=== PATIENT | male | born 1955 | race Caucasian/White ===

== ENCOUNTER 2017-07-16 15:57 | Inpatient (IN) | payer MEDICARE ==
[2017-07-16 16:21] LABS: #Basophils 0.1 thou/uL (0.0-0.2); #Eosinphils 0.2 thou/uL (0.0-0.7); #Lymphocytes 2.1 thou/uL (1.20-3.40); #Monocytes 0.7 thou/uL (0.11-0.59); #Neutrophils 7.5 thou/uL (1.40-6.50); %Basophils 0.9 % (0.0-1.0); %Eosinophils 2.1 % (0.0-10.0); %Monocytes 6.7 % (0.0-10.0); %Neutrophils 70.3 % (42.0-75.0); Mean Corpuscular HGB CONC 33.3 g/dL (32.0-36.0); Mean Corpuscular Hemoglobin 31.2 pg (27.0-31.0); Mean Corpuscular Volume 93.8 fl (80.0-94.0); Mean Platelet Volume 8.5 fL (7.4-10.4); Platelet Count 279 thou/uL (130-400); Red Blood Cell (RBC) Count 3.84 mill/uL (4.70-6.10); White Blood Cell (WBC) Count 10.6 thou/uL (4.8-10.8)
[2017-07-16 16:31] LABS: ALT (SGPT) 13 U/L (8-55); AST (SGOT) 12 U/L (5-34); Albumin 3.4 g/dL (3.5-5.0); Alkaline Phosphatase 148 U/L (40-150); Anion Gap 15 mmol/L (10-20); BUN (Urea Nitrogen) 37 mg/dL (8.4-25.7); Bilirubin, Total 0.5 mg/dL (0.2-1.2); CK (CPK) 269 U/L (30-200); Calc. Creatinine Clearance 0 mL/min (70-130); Carbon Dioxide 22 mmol/L (22-29); Chloride 102 mmol/L (98-107); Estimated GFR-MDRD 43; Globulin 3.2 g/dL (2.4-3.5); Glucose 344 mg/dL (70-105); Lipase 28 U/L (8-78); Potassium 4.3 mmol/L (3.5-5.1); Protein, Total 6.6 g/dL (6.0-8.3); Sodium 135 mmol/L (136-145)
[2017-07-16 16:34] LABS: CKMB 4.6 ng/mL (0-6.6); Troponin I 0.028 ng/mL (< 0.028)
[2017-07-16 16:47] LABS: INR-International Normal Ratio 1.1; PTT 35.2 SEC (22.9-36.1); Prothrombin Time 14.5 SEC (12.0-14.7)
--- NOTE | 2017-07-16 16:54 | RAD ---
PORTABLE CHEST ONE VIEW 07/16/17 at 4:25 p.m. HISTORY: Chest pain. FINDINGS: There are changes of median sternotomy. The heart size is borderline. Left sided pacemaker device is present. The lungs are expanded without confluent areas of consolidation, pneumothoraces, vanessa pulmo nary edema or pleural effusions. IMPRESSION: No acute process. POS: OFF
[2017-07-16] MEDS ORDERED: Amiodarone HCl 450 MG, Admixture Fee 1 EACH in Dextrose 5% in Water 250 ML IVPB SCH ×2 (17:00→21:00)
[2017-07-16] MEDS ORDERED: Enoxaparin Sodium 80 MG/0.8 ML SYRINGE ONE (17:25)
[2017-07-16] MEDS ORDERED: Enoxaparin Sodium 30 MG/0.3 ML SYRINGE ONE (17:25)
[2017-07-16] MEDS ORDERED: Metoprolol Tartrate 25 MG TAB ONE (20:00)
[2017-07-16] MEDS ORDERED: Acetaminophen 325 MG TAB PO PRN ×2 (20:23→20:37)
[2017-07-16] MEDS ORDERED: Ondansetron HCl/PF 4 MG/2 ML Vial IVP PRN (20:23)
[2017-07-16] MEDS ORDERED: Ondansetron ODT 4 MG TAB SL PRN (20:23)
[2017-07-16 20:26] LABS: Troponin I 0.038 ng/mL (< 0.028)
[2017-07-16] MEDS ORDERED: Aspirin 325 mg Enteric Coated Tablet PO SCH (20:30)
[2017-07-16] MEDS ORDERED: hydrALAZINE 20 MG/ML VIAL SLOW IVP PRN (20:37)
[2017-07-16] MEDS ORDERED: Amiodarone In Dextrose 200 ML IVPB SCH (20:37)
[2017-07-16] MEDS ORDERED: Dextrose 50% Abboject 50 ML SYRINGE SLOW IVP PRN (20:37)
[2017-07-16] MEDS ORDERED: Dextrose 5% in Water 1,000 ML IV PRN (20:37)
[2017-07-16] MEDS ORDERED: HYDROcodone/Acetaminophen 5/325 mg Tablet PO PRN (20:37)
[2017-07-16] MEDS ORDERED: Lorazepam 0.5 MG TAB PO PRN (20:37)
[2017-07-16] MEDS ORDERED: HYDROcodone/Acetaminophen 10/325 mg Tablet PO PRN (20:37)
[2017-07-16] MEDS: Metoprolol Tartrate 25 MG TAB PO SCH (21:17)
[2017-07-16] MEDS: Famotidine 20 MG TAB PO SCH (21:17)
[2017-07-16] MEDS: Nitroglycerin 2% Ointment 1 INCH/1 GM Packet TOP SCH (21:17)
[2017-07-16] MEDS: HumaLOG 300 UNITS/3 ML VIAL SC PRN (21:27)
[2017-07-16 21:54] LABS: Troponin I 0.039 ng/mL (< 0.028)
[2017-07-16 22:04] VITALS: BMI 33.7
--- NOTE | 2017-07-17 00:40 | HP ---
PRIMARY CARE PHYSICIAN: Dr. Valdez. CHIEF COMPLAINT: Chest pain and heart beating too fast. HISTORY OF PRESENT ILLNESS: Mr. Miramontes is a pleasant 61-year-old gentleman that has a history of cor onary artery disease. He also has a history of congestive heart failure and he is status post AICD p lacement. He says that he was doing fine today. He had just gone to see Dr. Trejo to get a checkup , when he recently had a right total knee replacement. He says that he had gotten clear on the knee and says that he was basically being discharged from that perspective. When he started noticing late r on this morning that he was starting to have hurting in his chest. He says that later on after thi s then he started noticing that he was short of breath. He had gone to the grocery store and says th at when he was walking around, he could barely push the cart without getting extremely short of breat h. As a result, he went ahead and went home. At that time, his blood pressure was around 109/92. H e says then he started noticing his chest hurting again, he thought he might be having a heart attack . He started noticing that his blood pressure kept getting higher and heart higher. He called EMS t o come get him. When he was in the ambulance, it was noted that he had a heart rate in the 130s, the y gave him adenosine without much relief and then they noticed that he had a wide complex tachycardia that looked like a slow ventricular tachycardia and apparently they cardioverted him and gave him 20 0 joules without any sedation. He then converted to sinus rhythm and was brought to the hospital whe re he has been started on an amiodarone drip. The patient says he had been doing fine from the cardi ac standpoint prior to this happening. REVIEW OF SYSTEMS: Constitutional: There have been no fevers, chills, no night sweats, no weight lo ss. HEENT: No headaches, no dizziness, no visual changes, no sore throat, rhinorrhea, neck pain, no adenopathy. Pulmonary: No hemoptysis, no cough, no wheezing. Cardiovascular: As stated in the hi story of present illness. He has noticed some increased lower extremity edema, but no mention of any PND or orthopnea. Gastrointestinal: No abdominal pain, no nausea, no vomiting, no change in bowels . Genitourinary: No urinary frequency, hematuria, no hesitancy. Neurologic: No focal weakness, nu mbness, no seizures. Psychiatric: No symptoms of anxiety or depression. PAST MEDICAL HISTORY: Significant for coronary artery disease, hypertension, congestive heart failur e, diabetes mellitus, peripheral vascular disease. PAST SURGICAL HISTORY: He has had coronary artery bypass grafting x4, this was in 2015, stents place d. He said he has had 11 back surgeries, 6 knee surgeries, amputation of the first toe on both feet, wrist fusions on both arms. ALLERGIES: CYMBALTA, which make him homicidal as well as suicidal. CHANTIX, which causes a bad reac tion and then fever blisters with ORANGE JUICE. FAMILY HISTORY: Significant for lung cancer, osteoarthritis, diabetes mellitus, but no history of an y heart disease. SOCIAL HISTORY: He is a former smoker. He smoked for 48 years for at least a pack a day. Denies an y alcohol use. He lives alone. CODE STATUS: FULL CODE. MEDICATIONS: Include furosemide 20 mg daily, metoprolol 25 mg twice a day, Lyrica 100 mg 3 times a d ay, atorvastatin 10 mg at bedtime, lisinopril 5 mg daily. PHYSICAL EXAMINATION: GENERAL: He is alert and oriented. He appears to be old, but anxious about the earlier events, but now in no distress. VITAL SIGNS: Blood pressure was 122/72, heart rate 78, respiratory rate of 17, temperature is 97.7. HEENT: Pupils are equal, round, and reactive. Extraocular muscles are intact. Sclerae anicteric. Throat no erythema, no exudates. NECK: No adenopathy, no bruits. LUNGS: Clear. No wheezing, no rales. CARDIOVASCULAR: He has a normal S1, S2. I do not appreciate any S3 or S4. No murmurs, clicks, or r ubs. ABDOMEN: Soft, obese, nontender, nondistended. Positive for bowel sounds. No rebound, no guarding. EXTREMITIES: There is no edema. NEUROLOGIC: The exam is grossly nonfocal. EXTREMITIES: He does have toe amputations on both feet on the first toe. His feet are warm and appe ars perfused; however, his dorsalis pedis pulses were diminished. He does have 1+ edema in the right lower extremity and some knee fusion, which is slightly more pronounced on the right leg than on the left. LABORATORY RESULTS: I do not have his EKG, but it is reported that he had a wide complex tachycardia . Currently, he appears to be in sinus rhythm, the rate is 75 and he had some Q-waves in II, III, an d AVF. His sodium was 135, potassium 4.3, chloride is 106, CO2 is 22, BUN of 37, creatinine 1.65, gl ucose was 344. White blood cell count 10.6, hemoglobin of 12.0, hematocrit 36, platelet count is 279 . INR is 1.1. ASSESSMENT AND PLAN: 1. This is a pleasant 61-year-old gentleman who presented to the emergency room after suffering ches t pain and was reported to being a wide complex tachycardia, which was suspected of being a slow vent ricular tachycardia. He has been started on an amiodarone drip, which we will continue. He will be admitted to the [facility] and Cardiology has been consulted. We will trend cardiac enzymes and consider p lacing him on aspirin and nitrates in the event that this is a primary acute coronary syndrome. 2. His blood pressure has been running high, we will go ahead and given his usual p.m. medications, these can be given early and then we can also place him on a medication as needed for blood pressure. 3. Diabetes mellitus. Again, we will start his usual medications including the Levemir as well as p lace him on sliding scale insulin. Further recommendations will be based on those from Cardiology.
[2017-07-17 05:48] LABS: #Basophils 0.1 thou/uL (0.0-0.2); #Eosinphils 0.5 thou/uL (0.0-0.7); #Lymphocytes 3.1 thou/uL (1.20-3.40); #Monocytes 0.7 thou/uL (0.11-0.59); #Neutrophils 7.4 thou/uL (1.40-6.50); %Basophils 0.8 % (0.0-1.0); %Eosinophils 4.4 % (0.0-10.0); %Lymphocytes 26.3 % (21.0-51.0); %Monocytes 6.2 % (0.0-10.0); %Neutrophils 62.3 % (42.0-75.0); Hemoglobin 11.9 g/dL (14.0-18.0); Mean Corpuscular HGB CONC 32.7 g/dL (32.0-36.0); Mean Corpuscular Hemoglobin 30.3 pg (27.0-31.0); Mean Corpuscular Volume 92.8 fl (80.0-94.0); Mean Platelet Volume 8.9 fL (7.4-10.4); Platelet Count 282 thou/uL (130-400); RBC Distribution Width 12.9 % (11.5-14.5); Red Blood Cell (RBC) Count 3.92 mill/uL (4.70-6.10); White Blood Cell (WBC) Count 11.8 thou/uL (4.8-10.8)
--- NOTE | 2017-07-17 05:52 | CON ---
DATE OF CONSULTATION: 07/16/2017 REASON FOR CONSULTATION: Sustained ventricular tachycardia. PRIMARY HAIR STYLIST: Dr. Dara Garcia. HISTORY OF PRESENT ILLNESS: Mr. Miramontes is a pleasant 61-year-old gentleman with history of myocardia l infarction and previous bypass surgery with recurrent ventricular tachycardia. Mr. Miramontes states he was at home, feeling relatively well. When he had the sudden onset of feeling, his heart racing and then subsequently had tightness in his chest. He called an ambulance because of the tightness in his chest. Because of the continued angina associated with the ventricular tachyca rdia, he was cardioverted, back to sinus rhythm. He began to feel better following that. He states he has been doing okay prior to this episode. He is feeling okay now, just somewhat upset about the events of this evening and it was very frighten ing to him to have the cardioversion. The patient is now awake and alert, feeling okay, however. PAST HISTORY: The patient has a history of myocardial infarction many years ago and initially underw ent emergency stent implantation, subsequently underwent coronary bypass grafting. The patient's most recent ejection fraction is 50% to 55%. He underwent bypass surgery on 05/2015, a 3-vessel coronary artery disease and also had a defibrillator implanted single chamber, most recent ejection fraction is 50% to 55%. He had a cardiac catheterization on 08/2016, allograft were patent. At that time, he was found to have a patent internal mammary to the LAD, patent graft to the diagonal , patent saphenous vein graft to the circumflex. From the drawing, it looks like it is a left domina nt system. There is another catheterization from 2014 prior to the bypass, which did not indicate it was left do minant. The patient did undergo a defibrillator implantation in 2013, single chamber. PAST MEDICAL HISTORY: 1. Diabetes. 2. Hypertension. 3. Previous amputation of the right great toe. 4. Peripheral vascular disease. MEDICATIONS: Levemir, aspirin, atorvastatin, metoprolol 25 mg daily, lisinopril, Lasix, amlodipine. PHYSICAL EXAMINATION: GENERAL: This is a somewhat apprehensive gentleman, who is resting comfortably now. VITAL SIGNS: Blood pressure was 160 systolic. Pulse was in the 80s, sinus rhythm. HEENT: Eyes: Sclerae nonicteric. Mouth: Mucous membranes moist. NECK: Supple, no lymphadenopathy. LUNGS: Clear, no wheezing, rales or rhonchi. CARDIAC: Normal S1, normal S2. There is no murmur, rub or gallop. ABDOMEN: Soft, nontender. EXTREMITIES: Warm, dry, no clubbing, no cyanosis, no edema. IMAGING: EKG, sinus rhythm at the present time, but he did have wide complex tachycardia, rate just over 140 from the ambulance recordings and is monomorphic. ASSESSMENT: 1. Previous bypass surgery. 2. Monomorphic ventricular tachycardia. 3. Patent graft on catheterization in 2014. PLAN: 1. He received one dose of Lovenox and he will get cardiac enzymes drawn. 2. He is on intravenous amiodarone for now. Consideration for EP evaluation ? candidate for ablatio n in view of the normal left ventricular function may be a good option for this gentleman in [facility] Dr. Garcia to resume care tomorrow.
[2017-07-17] MEDS: Nitroglycerin 2% Ointment 1 INCH/1 GM Packet TOP SCH ×3 (05:56→23:09)
[2017-07-17 06:04] LABS: Anion Gap 13 mmol/L (10-20); BUN (Urea Nitrogen) 32 mg/dL (8.4-25.7); Calc. Creatinine Clearance 92 mL/min (70-130); Calcium 9.2 mg/dL (7.8-10.44); Carbon Dioxide 24 mmol/L (22-29); Cardiac Risk 3.7 (Less than 4.5); Chloride 105 mmol/L (98-107); Cholesterol 136 mg/dl (< 200 Desired); Estimated GFR-MDRD 51; Glucose 209 mg/dL (70-105); HDL Cholesterol 37 mg/dL (>60 Neg Risk); LDL Cholesterol, Calculated 72 mg/dL; Potassium 4.4 mmol/L (3.5-5.1); Sodium 138 mmol/L (136-145); Triglycerides 135 mg/dL (Less than 150)
[2017-07-17] MEDS: HumaLOG 300 UNITS/3 ML VIAL SC PRN ×3 (06:34→18:06)
[2017-07-17] MEDS: Aspirin 325 MG TAB PO SCH (08:52)
[2017-07-17] MEDS: Enoxaparin Sodium 40 MG/0.4 ML SYRINGE SC SCH (08:52)
[2017-07-17] MEDS: Metoprolol Tartrate 25 MG TAB PO SCH (08:52)
[2017-07-17] MEDS: Famotidine 20 MG TAB PO SCH ×2 (08:52→20:56)
[2017-07-17] MEDS ORDERED: hydrALAZINE 20 MG/ML VIAL SLOW IVP PRN (09:02)
--- NOTE | 2017-07-17 09:05 | PDOC.PN ---
- Subjective Encounter Start Date: 07/17/17 Encounter Start Time: 09:03 Mr. Miramontes was seen today in follow-up. He denies any chest pain no shortness of breath. He still is quite frustrated about his current medical condition. - Objective Resuscitation Status: Resuscitation Status FULL:Full Resuscitation MAR Reviewed: Yes Vital Signs & Weight: Vital Signs (12 hours) Temp Pulse Resp BP Pulse Ox 07/17/17 07:55 97.9 F 56 L 18 160/82 H 94 L 07/17/17 04:30 97.6 F 54 L 18 158/70 H 91 L 07/17/17 00:00 98.6 F 60 16 163/68 H 98 07/16/17 21:30 98.6 F 66 16 183/94 H 96 07/16/17 21:20 98.6 F 66 16 96 Weight Weight 256 lb 1.6 oz I&O: 07/16/17 07/17/17 07/18/17 06:59 06:59 06:59 Intake Total 715 Output Total 2500 Balance -1785 Result Diagrams: 07/17/17 05:18 07/17/17 05:18 Additional Labs: Accuchecks 07/17/17 07/16/17 05:56 21:21 POC Glucose 206 H 307 H Phys Exam - Physical Examination HEENT: PERRLA Respiratory: no wheezing, no rales, no rhonchi, clear to auscultation bilateral Cardiovascular: RRR, no significant murmur Gastrointestinal: soft, non-tender, positive bowel sounds Musculoskeletal: no edema + 1st toe amputation on both feet decreased pulses, bilaterally Dx/Plan (1) Ventricular tachycardia Code(s): I47.2 - VENTRICULAR TACHYCARDIA Status: Acute (2) Coronary artery disease Code(s): I25.10 - ATHSCL HEART DISEASE OF [place] CORONARY ARTERY W/O ANG PCTRS Status: Acute (3) Diabetes mellitus type 2 in obese Code(s): E11.69 - TYPE 2 DIABETES MELLITUS WITH OTHER SPECIFIED COMPLICATION; E66.9 - OBESITY, UNSPECIFIED Status: Acute (4) Hypertension Code(s): I10 - ESSENTIAL (PRIMARY) HYPERTENSION Status: Acute (5) Chronic systolic heart failure Code(s): I50.22 - CHRONIC SYSTOLIC (CONGESTIVE) HEART FAILURE Status: Acute - Plan * Ventricular Tachycardia- He has been stable on an Amiodarone drip- * Will await further cardiology recommendations * DM- blood glucose is stable * HTN- blood pressure is elevated- will monitor the trend, and adjust medications as needed- will await Cardiology recommendations.
[2017-07-17] MEDS ORDERED: Furosemide 40 MG/4 ML VIAL SLOW IVP SCH (10:00)
[2017-07-17] MEDS: Pregabalin 50 MG CAP PO SCH ×2 (14:32→20:55)
[2017-07-17] MEDS ORDERED: Non-Formulary Item 1 EACH (Pregabalin [Lyrica] 100 MG) PO SCH (15:00)
--- NOTE | 2017-07-17 16:12 | CON ---
DATE OF CONSULTATION: 07/17/2017 SERVICE: Pulmonary Medicine. INTERVAL HISTORY: The patient was in his usual state of health until one day prior to admission. He got cleared from his knee surgery. He is feeling pretty good about that and went to the store. He started having somewhat shortness of breath that he could barely push the cart around. He also had chest pain. He went home and rested. He felt a little bit better, but ultimately, whenever he tried to exert himself, he gets shortness of breath and chest pain that came on again. He took his blood pressure, which was okay. Chest pain came back and at this time it was more severe. He called EMS services to come out and look at him. When they hooked him up on to a monitor, he had ventricular tachycardia at low rate. Without sedation, he got cardioverted. Since then, he has been in normal sinus rhythm. He denies any current fevers, chills, nausea, vomiting or chest discomfort. Cardiology is evaluating the patient and are going to consider getting EP involved to see whether or not an ablation would be in his best interest. He has no breathing problems. He has no underlying lung issues. PAST MEDICAL HISTORY: 1. Peripheral vascular disease. 2. Hypertension. 3. Dyslipidemia. 4. Coronary artery disease. 5. Chronic diastolic heart failure. PAST SURGICAL HISTORY: 1. Coronary artery bypass graft x4 vessels. 2. History of PCI. 3. Back surgery. 4. Knee surgery x6. 5. Amputation of the great toe on bilateral feet. 6. Wrist fusion, bilateral. ALLERGIES: 1. CYMBALTA causes suicidal and homicidal ideation. 2. CHANTIX causes fever blisters. ALLERGIES: No known drug allergies. MEDICATIONS: List of his inpatient medications was reviewed. No updates were made at this time. FAMILY HISTORY: Noncontributory. SOCIAL HISTORY: He is a former smoker. He has a [id number] history of smoking, but quit a couple of months ago. He denies any alcohol or illicit drug use. He has no exposure to chemicals, dust asbestos or tuberculosis. REVIEW OF SYSTEMS: General, head, ears, eyes, nose, throat, cardiovascular, respiratory, GI, , musculoskeletal, neurologic and skin is negative except as mentioned in the HPI. PHYSICAL EXAMINATION: VITAL SIGNS: Afebrile, pulse 63, blood pressure 178/70, respirations 21, saturation 98% on room air. GENERAL: Patient is awake, alert, in no apparent distress. LUNGS: Excellent air entry with no prolonged expiratory phase, wheezing, rhonchi or crackles. HEENT: Normocephalic, atraumatic. Sclerae are white, conjunctivae pink. Oral mucosa is moist without lesions. HEART: Normal rate, regular. ABDOMEN: Soft, nontender, nondistended. Bowel sounds are positive. MUSCULOSKELETAL: No cyanosis or clubbing. There is no pitting in the bilateral lower extremities. NEUROLOGIC: Grossly nonfocal. LABORATORY DATA: WBC 11.8, hemoglobin 11.9, and platelets 282,000. INR 1.1. Creatinine 1.42 and down trending. Basic metabolic profile and liver function studies are otherwise unremarkable. Troponin is stable at 0.039. TSH and lipase fall within the normal limits. IMAGING: Chest x-ray demonstrates no acute cardiopulmonary abnormality. Sternotomy wires are in place. There is an AICD generator in place with a single lead extending into what I believe is ventricle. ASSESSMENT: 1. Ventricular tachycardia, status post cardioversion and returned to normal sinus rhythm. 2. Chest pain, resolved. 3. Type 2 diabetes mellitus. 4. Peripheral vascular disease, severe. DISCUSSION AND PLAN: The patient will remain in the IMCU until cleared by Cardiology. Pulmonary or Critical Care will continue to follow if he remains in this location, but when he goes to the floor, we will sign off. Please call with additional questions or concerns moving forward. 70 minutes have been devoted to this patient in various activities. I personally reviewed all imaging studies and laboratory data noted within this document. For at least half of this time, I was interacting with the patient at the bedside or coordinating care with the care team. For the remainder of the time I was immediately available to the patient in the hospital unit. MATEO
--- NOTE | 2017-07-17 18:17 | PDOC.CTH ---
<Hamida Davis - Last Filed: 07/17/17 18:15> Cardiology Progress Note - Subjective The pt seen and examined. No overnight events. No overnight events. He is depressed due to s/p cardioversion without any sedation. - Objective Vital Signs Temp Pulse Resp BP BP Pulse Ox 07/17/17 15:00 98.1 F 59 L 17 155/74 H 94 L 07/17/17 11:00 98.7 F 63 21 H 178/80 H 98 07/17/17 09:36 56 L 193/84 H 07/17/17 08:00 98.4 F 56 L 18 98 07/17/17 07:55 97.9 F 56 L 18 160/82 H 94 L Weight 256 lb 1.6 oz 07/16/17 07/17/17 07/18/17 06:59 06:59 06:59 Intake Total 715 443 Output Total 2500 800 Balance -0434 -357 - Physical Examination General/Neuro: alert & oriented x3 Neck: no JVD present Lungs: CTA, other: (very diminished at bases) Heart: RRR Abdomen: soft Extremities: other: (2+ pitting edema to RLE) - Telemetry Telemetry Rhythm: SR 60 with V paced - Labs Result Diagrams: 07/17/17 05:18 07/17/17 05:18 Troponin/CKMB CK-MB (CK-2) 4.6 ng/mL (0-6.6) 07/16/17 16:14 Troponin I 0.039 ng/mL (< 0.028) H 07/16/17 21:20 - Assessment/Plan 1. SVT with s/p cardioverted on 07/16/17 - remains in SR 60 with Amiodarone IV 0.5mg/min. Cont. monitor 2. CAD with hx of CABG x3 in 2014 - stable; on Metoprolol, BO, ASA, and Statin ; cont. monitor on tele 3. Chronic systolic HF with Hx of AICD placement in 2013 - the rate was adjusted from 150 to 130 today; On Lasix 20mg PO daily; He received Lasix 40mg IV x1 today; 4. HTN - increase Metoprolol from 25mg to 50mg BID 5. CKD - stable; cont. monitor 6. PVD with hx of Rt 1st toe amputation - 7. DM type 2 - managed by PCP 8. Hyperlipidemia - on Statin 9. S/p Rt knee replacement - the site is [employer] and dry. 10. Ex smoker, quit in 04/2017 - smoking cessation education given to the pt MAR reviewed Review of Systems - Review of Systems Constitutional: reports: no symptoms reported EENTM: reports: no symptoms reported Respiratory: reports: no symptoms reported Cardiac (ROS): reports: no symptoms reported ABD/GI: reports: no symptoms reported : reports: no symptoms reported Musculoskeletal: reports: no symptoms reported <Ranulfo Garcia - Last Filed: 07/23/17 09:05> Cardiology Progress Note - Objective Weight 243 lb 14.4 oz - Labs Result Diagrams: 07/19/17 05:32 07/19/17 05:32 Troponin/CKMB CK-MB (CK-2) 4.6 ng/mL (0-6.6) 07/16/17 16:14 Troponin I 0.039 ng/mL (< 0.028) H 07/16/17 21:20 - Assessment/Plan i agree with the A/P by the AUTOMOBILE LOCATOR.
[2017-07-17] MEDS: Metoprolol Tartrate 50 MG TAB PO SCH (19:46)
--- NOTE | 2017-07-18 03:27 | CON ---
DATE OF CONSULTATION: 07/17/2017 ELECTROPHYSIOLOGY CONSULTATION REPORT REFERRING PHYSICIAN: Dara Garcia MD I am seeing Mr. Miramontes at our [facility] as an electrophysiology bridal sales consultant. His problems are: 1. Wide complex tachycardia, but no ICD therapy, requiring external cardioversion. 2. History of monomorphic VT inducible on EPS prompting an ICD implantation in 11/2013. A. History of ICD extraction due to MRSA infections and vegetation by ANIL on leads. B. Presentation with wide complex tachycardia, prompting an EP study demonstrating inducible ventricular tachycardia prompting an implantation of an ICD in 09/05/2016. 3. Coronary artery disease. A. Prior history of bypass surgery. B. Left heart catheterization on 09/06/2016, shows patent VALVERDE to LAD suggestive of diffuse [place] artery disease, LVEF 40%-45%. 4. History of peripheral vascular disease, status post toe amputations. 5. History of hypertension and diabetes. 6. Chronic back pain with 11 back surgeries. ALLERGIES: CYMBALTA, CHANTIX, and ORANGE JUICE. MEDICATIONS: Include furosemide, metoprolol, Lyrica, atorvastatin, lisinopril. SUBJECTIVE: Mr. Miramontes is here due to some development of dizziness and tachycardia. He had some chest discomfort associated with this, also dyspnea. He could barely push the cart around in a grocery store. Blood pressure is still reasonable at 109/92. He called EMS and he was found to be in wide complex tachycardia and was cardioverted to convert him back to sinus rhythm. Eventually, 200 joules was delivered without sedation and he is back to normal rhythm now. Currently, he is not having chest pains. No fever, chills, cough. Has some degree of fluid overload, lower extremity edema. Has mild orthopnea. No stroke -like symptoms. No bleeding issues. He recently underwent a right knee total replacement by Dr. Trejo. Rest of 12-point system otherwise unremarkable. PAST MEDICAL HISTORY: As above. PAST SURGICAL HISTORY: Significant for bypass graft surgery x4 and 15 stent placements in the past; 11 back surgeries; 6 knee surgeries; amputation of first toe on both feet; wrist fusions in both arms; and ICD implantation, extraction, and re-implantation again as above. SOCIAL HISTORY: The patient is a former smoker, smoked 48 years. Denies EtOH or drug use. FAMILY HISTORY: Significant for lung cancer, osteoarthritis, diabetes. No history of heart disease. OBJECTIVE DATA: VITAL SIGNS: Blood pressure is 170/80, heart rate 63, respiratory rate 21, temperature 98.7 degrees Fahrenheit. GENERAL: He is an alert and oriented man in no apparent distress. NECK: Supple. Jugular veins are slightly distended. CHEST: Coarse. Few crackles. CARDIAC: Heart sounds are regular to rate and rhythm. I do not hear murmur or gallop. Left precordial ICD insertion site is well healed. ABDOMEN: Benign. Bowel sounds positive. No hepatomegaly noted. No masses are felt. EXTREMITIES: Lower extremity has 2+ edema. Prior toe amputations are seen. Knee surgery site without reaction. NEUROLOGIC: The patient is nonfocal. MUSCULOSKELETAL: No joint swelling or deformities. SKIN: Without rash. DATABASE: EKG today reveals sinus rhythm with conduction. QRS duration is about 140 milliseconds, inferior Q-waves are noted. Nonspecific ST-T changes are seen. LABORATORY DATA: White count 11.8, hemoglobin 11.9, platelet count is 282. The INR is 1.1. Sodium 138, potassium 4.4, BUN 33, creatinine 1.42. Troponin I is 0.038 and 0.039. The chest x-ray report shows no acute process. ASSESSMENT AND PLAN: Mr. Miramontes is a pleasant 61-year-old man with prior history of ischemic cardiomyopathy with only mild to moderately reduced left ventricular ejection fraction, but with recurrent ventricular tachycardia. He was now admitted after an episode of ventricular tachycardia, which was relatively slower with rates just below 150 beats per minute were seen. I suspect the device has not delivered therapy due to the slower ventricular tachycardia rate that was below cut-off. For now, he is on IV amiodarone and seems to be reasonably suppressed. My plan is to interrogate his device and reprogram the VT detection zones accordingly. He may not necessarily need long- term IV amiodarone therapy. If recurrent arrhythmia episodes are seen, he could be considered for ventricular tachycardia ablation procedure as well. He also has symptoms of some fluid overload. Consideration for diuresis and CHF control will be welcomed. I am not suspecting acute ischemia. Further ischemic evaluation as per Dr. Garcia. We will follow up with you. Thank you for the consult. MATEO
[2017-07-18] MEDS: Nitroglycerin 2% Ointment 1 INCH/1 GM Packet TOP SCH ×3 (05:50→21:32)
[2017-07-18] MEDS: HumaLOG 300 UNITS/3 ML VIAL SC PRN ×4 (05:56→21:33)
--- NOTE | 2017-07-18 08:22 | PDOC.PN ---
- Subjective Encounter Start Date: 07/18/17 Encounter Start Time: 08:17 Mr. Miramontes was seen today in follow-up. He says he feels a little better today. He is still dealing with the fact that he was defibrillated without sedation on the ambulance. - Objective Resuscitation Status: Resuscitation Status FULL:Full Resuscitation MAR Reviewed: Yes Vital Signs & Weight: Vital Signs (12 hours) Temp Pulse Resp BP Pulse Ox 07/18/17 07:54 98.3 F 61 20 170/72 H 97 07/18/17 07:43 97.9 F 58 L 16 98 07/18/17 04:00 97.9 F 58 L 16 163/83 H 95 07/18/17 02:46 94 L 07/18/17 00:00 58 L 16 131/56 L 94 L Weight Weight 251 lb 8 oz I&O: 07/17/17 07/18/17 07/19/17 06:59 06:59 06:59 Intake Total 715 893 Output Total 2500 2150 Balance -1785 -1257 Result Diagrams: 07/17/17 05:18 07/17/17 05:18 Additional Labs: Accuchecks 07/18/17 07/17/17 07/17/17 05:50 20:56 16:21 POC Glucose 197 H 169 H 353 H 07/17/17 10:37 POC Glucose 341 H Phys Exam - Physical Examination HEENT: PERRLA Respiratory: no wheezing, no rales, no rhonchi, clear to auscultation bilateral Cardiovascular: RRR, no significant murmur, no rub Gastrointestinal: soft, non-tender, positive bowel sounds Musculoskeletal: no edema Dx/Plan (1) Ventricular tachycardia Code(s): I47.2 - VENTRICULAR TACHYCARDIA Status: Acute (2) Coronary artery disease Code(s): I25.10 - ATHSCL HEART DISEASE OF [place] CORONARY ARTERY W/O ANG PCTRS Status: Acute (3) Diabetes mellitus type 2 in obese Code(s): E11.69 - TYPE 2 DIABETES MELLITUS WITH OTHER SPECIFIED COMPLICATION; E66.9 - OBESITY, UNSPECIFIED Status: Acute (4) Hypertension Code(s): I10 - ESSENTIAL (PRIMARY) HYPERTENSION Status: Acute (5) Chronic systolic heart failure Code(s): I50.22 - CHRONIC SYSTOLIC (CONGESTIVE) HEART FAILURE Status: Acute - Plan * Ventricular Tachycardia- Discussed with Dr. Hyman. His Defibrillator has been reprogrammed * Acute on chronic systolic heart failure- He is mildly volume overloaded He was given a dose of IV Lasix with good diuresis, his weight is down 5 pounds. * HTN- blood pressure has been elevated- Metoprolol has been increased, will monitor * DM- blood glucose is stable * CAD- stable * Continue as per EP/ Cardiology recommendations
[2017-07-18] MEDS: Enoxaparin Sodium 40 MG/0.4 ML SYRINGE SC SCH (08:50)
[2017-07-18] MEDS: Pregabalin 50 MG CAP PO SCH ×3 (08:51→21:31)
[2017-07-18] MEDS: Aspirin 325 MG TAB PO SCH (08:52)
[2017-07-18] MEDS: Lisinopril 5 MG TAB PO SCH (08:52)
[2017-07-18] MEDS: Atorvastatin Calcium 10 MG TAB PO SCH (08:52)
[2017-07-18] MEDS: Famotidine 20 MG TAB PO SCH ×2 (08:53→21:30)
[2017-07-18] MEDS: Metoprolol Tartrate 50 MG TAB PO SCH (08:53)
[2017-07-18] MEDS ORDERED: Furosemide 20 MG TAB PO SCH ×2 (09:00→14:13)
[2017-07-18] MEDS ORDERED: INSULIN DETEMIR 46 UNIT SQ SCH (09:00)
[2017-07-18] MEDS: PRE FILLED SC SCH (09:24)
[2017-07-18] MEDS: INSULIN DETEMIR SC SCH (09:24)
--- NOTE | 2017-07-18 12:26 | PDOC.CTH ---
<Hamida Davis - Last Filed: 07/18/17 12:28> Cardiology Progress Note - Subjective The pt seen and examined. No overnight events. No cardiac complaints. He still complains of fear from s/p cardioversion - Objective Vital Signs Temp Pulse Resp BP BP Pulse Ox 07/18/17 11:34 98.5 F 60 18 167/87 H 96 07/18/17 08:52 61 179/94 H 07/18/17 08:27 97 07/18/17 07:54 98.3 F 61 20 170/72 H 97 07/18/17 07:43 97.9 F 58 L 16 98 07/18/17 04:00 97.9 F 58 L 16 163/83 H 95 07/18/17 02:46 94 L Weight 251 lb 8 oz 07/17/17 07/18/17 07/19/17 06:59 06:59 06:59 Intake Total 715 893 240 Output Total 2500 2150 Balance -1785 -1257 240 - Physical Examination General/Neuro: alert & oriented x3 Neck: no JVD present Lungs: CTA Heart: RRR Abdomen: soft Extremities: other: (2+ pitting edema to BLE) - Telemetry Telemetry Rhythm: SR 60s - Labs Result Diagrams: 07/17/17 05:18 07/17/17 05:18 Troponin/CKMB CK-MB (CK-2) 4.6 ng/mL (0-6.6) 07/16/17 16:14 Troponin I 0.039 ng/mL (< 0.028) H 07/16/17 21:20 - Assessment/Plan 1. SVT with s/p cardioverted on 07/16/17 - remains in SR 60s with Amiodarone IV 0.5mg/min. Cont. monitor 2. CAD with hx of CABG x3 in 2014 - stable; on Metoprolol, BO, ASA, and Statin ; cont. monitor on tele 3. Chronic systolic HF with Hx of AICD placement in 2013 - the rate was programmed from [address]yman on 07/17/17; On Lasix 20mg PO daily; 4. HTN - Start Norvasc 5mg daily from today 5. CKD - stable; cont. monitor 6. PVD with hx of Rt 1st toe amputation - 7. DM type 2 - managed by PCP 8. Hyperlipidemia - on Statin 9. S/p Rt knee replacement - the site is [employer] and dry. 10. Ex smoker, quit in 04/2017 - smoking cessation education given to the pt MAR reviewed * From cardiac standpoint, the pt is stable to d/c home when Dr Hyman is agreed. The pt will f/u with Dr Garcia' office within 2-4 wks. Review of Systems - Review of Systems Constitutional: reports: no symptoms reported EENTM: reports: no symptoms reported Respiratory: reports: no symptoms reported Cardiac (ROS): reports: no symptoms reported ABD/GI: reports: no symptoms reported : reports: no symptoms reported Musculoskeletal: reports: no symptoms reported <Ranulfo Garcia - Last Filed: 07/18/17 14:09> Cardiology Progress Note - Objective Vital Signs Temp Pulse Resp BP BP Pulse Ox 07/18/17 12:56 60 153/79 H 07/18/17 11:34 98.5 F 60 18 167/87 H 96 07/18/17 08:52 61 179/94 H 07/18/17 08:27 97 07/18/17 07:54 98.3 F 61 20 170/72 H 97 07/18/17 07:43 97.9 F 58 L 16 98 07/18/17 04:00 97.9 F 58 L 16 163/83 H 95 07/18/17 02:46 94 L Weight 251 lb 8 oz 07/17/17 07/18/17 07/19/17 06:59 06:59 06:59 Intake Total 715 893 240 Output Total 2500 2150 Balance -1785 -1257 240 - Labs Result Diagrams: 07/17/17 05:18 07/17/17 05:18 Troponin/CKMB CK-MB (CK-2) 4.6 ng/mL (0-6.6) 07/16/17 16:14 Troponin I 0.039 ng/mL (< 0.028) H 07/16/17 21:20 - Assessment/Plan Pt. seen and eval. by me. I have discussed his case with the transmission inspector and reviewed the rhythm strips. This was most likely V-tach but it can not be said with certainty. The V-tach detection and treatment zone on the AICD was lowered. If he has repeat episodes then hopefully this will be treated by the AICD. I otherwise agree with the A/P by the EMT I/99. He can likely be d/c'd to home today or tomorrow when the CHF is stable.
[2017-07-18] MEDS ORDERED: Amlodipine 5 MG TAB PO SCH ×2 (12:30→12:45)
--- NOTE | 2017-07-18 14:16 | PRG ---
DATE OF SERVICE: 07/18/2017 SERVICE: Pulmonary Medicine INTERVAL HISTORY: The patient is doing outstanding from a respiratory standpoint. He is breathing c omfortably. No chest discomfort. No episodes of ventricular tachycardia since yesterday. His AICD has been adjusted to provide him with electricity at lower heart rates. PHYSICAL EXAMINATION: VITAL SIGNS: Afebrile, pulse 60, blood pressure 167/87, respirations 18, saturation 96% on room air. GENERAL: Patient is awake, alert, in no apparent distress. LUNGS: Excellent air entry. There is no prolonged expiratory phase. No wheezing, rhonchi, or crack les. HEART: Normal rate, regular. ABDOMEN: Soft, nontender, nondistended. Bowel sounds positive. MUSCULOSKELETAL: No cyanosis or clubbing. There is no pitting in the bilateral lower extremities. NEUROLOGIC: Grossly nonfocal. ASSESSMENT: 1. Ventricular tachycardia, status post cardioversion, returned to normal sinus rhythm. 2. Chest pain, resolved. 3. Peripheral vascular disease, severe. 4. Type 2 diabetes mellitus. DISCUSSION AND PLAN: The patient remains stable for transition out of the hospital. I have cleared his transition to the telemetry unit with Dr. Garcia. If the patient finds telemetry bed, Pulmonary wi ll sign off. Please call with additional questions or concerns moving forward.
[2017-07-18] MEDS: Carvedilol 6.25 MG TAB PO SCH (16:47)
[2017-07-19 06:09] LABS: #Basophils 0.1 thou/uL (0.0-0.2); #Eosinphils 0.3 thou/uL (0.0-0.7); #Lymphocytes 2.1 thou/uL (1.20-3.40); #Monocytes 0.9 thou/uL (0.11-0.59); #Neutrophils 6.6 thou/uL (1.40-6.50); %Basophils 0.8 % (0.0-1.0); %Eosinophils 2.8 % (0.0-10.0); %Lymphocytes 20.8 % (21.0-51.0); %Monocytes 9.2 % (0.0-10.0); %Neutrophils 66.5 % (42.0-75.0); Hemoglobin 10.7 g/dL (14.0-18.0); Mean Corpuscular HGB CONC 33.3 g/dL (32.0-36.0); Mean Corpuscular Volume 93.2 fl (80.0-94.0); Mean Platelet Volume 8.7 fL (7.4-10.4); Platelet Count 248 thou/uL (130-400); RBC Distribution Width 12.9 % (11.5-14.5); Red Blood Cell (RBC) Count 3.44 mill/uL (4.70-6.10); White Blood Cell (WBC) Count 9.9 thou/uL (4.8-10.8)
[2017-07-19] MEDS: Nitroglycerin 2% Ointment 1 INCH/1 GM Packet TOP SCH (06:14)
[2017-07-19 06:22] LABS: Anion Gap 10 mmol/L (10-20); BUN (Urea Nitrogen) 23 mg/dL (8.4-25.7); Calc. Creatinine Clearance 96 mL/min (70-130); Calcium 9.1 mg/dL (7.8-10.44); Carbon Dioxide 28 mmol/L (22-29); Chloride 106 mmol/L (98-107); Estimated GFR-MDRD 55; Glucose 79 mg/dL (70-105); Potassium 3.8 mmol/L (3.5-5.1); Sodium 140 mmol/L (136-145)
[2017-07-19] MEDS ORDERED: Amlodipine 5 MG TAB PO SCH (09:00)
[2017-07-19] MEDS: Atorvastatin Calcium 10 MG TAB PO SCH (09:13)
[2017-07-19] MEDS: Lisinopril 5 MG TAB PO SCH (09:13)
[2017-07-19] MEDS: Aspirin 325 MG TAB PO SCH (09:13)
[2017-07-19] MEDS: Pregabalin 50 MG CAP PO SCH (09:14)
[2017-07-19] MEDS: Famotidine 20 MG TAB PO SCH (09:14)
[2017-07-19] MEDS: Carvedilol 6.25 MG TAB PO SCH (09:15)
[2017-07-19] MEDS: INSULIN DETEMIR SC SCH (09:16)
[2017-07-19] MEDS: PRE FILLED SC SCH (09:16)
[2017-07-19] MEDS: Enoxaparin Sodium 40 MG/0.4 ML SYRINGE SC SCH (09:17)
[2017-07-19 11:36] VITALS: BP 155/81; TEMP 98
--- NOTE | 2017-07-19 12:20 | PDOC.PN ---
- Subjective Encounter Start Date: 07/19/17 Encounter Start Time: 12:18 Mr. Miramontes was seen today in follow-up. He says he feels great, no complaints today. - Objective Resuscitation Status: Resuscitation Status FULL:Full Resuscitation MAR Reviewed: Yes Vital Signs & Weight: Vital Signs (12 hours) Temp Pulse Resp BP Pulse Ox 07/19/17 11:16 98 F 61 18 155/81 H 96 07/19/17 08:00 98.6 F 62 17 162/78 H 96 07/19/17 04:06 97.6 F 54 L 18 147/78 H 93 L Weight Weight 243 lb 14.4 oz I&O: 07/18/17 07/19/17 07/20/17 06:59 06:59 06:59 Intake Total 893 2040 Output Total 2150 1900 Balance -1257 140 Result Diagrams: 07/19/17 05:32 07/19/17 05:32 Additional Labs: Accuchecks 07/19/17 07/19/17 07/18/17 11:04 06:10 20:29 POC Glucose 220 H 95 230 H 07/18/17 16:20 POC Glucose 247 H Phys Exam - Physical Examination HEENT: PERRLA Respiratory: no wheezing, no rales, no rhonchi, clear to auscultation bilateral Cardiovascular: RRR, no significant murmur Gastrointestinal: soft, non-tender, positive bowel sounds trace edema Dx/Plan (1) Ventricular tachycardia Code(s): I47.2 - VENTRICULAR TACHYCARDIA Status: Acute (2) Coronary artery disease Code(s): I25.10 - ATHSCL HEART DISEASE OF [place] CORONARY ARTERY W/O ANG PCTRS Status: Acute (3) Diabetes mellitus type 2 in obese Code(s): E11.69 - TYPE 2 DIABETES MELLITUS WITH OTHER SPECIFIED COMPLICATION; E66.9 - OBESITY, UNSPECIFIED Status: Acute (4) Hypertension Code(s): I10 - ESSENTIAL (PRIMARY) HYPERTENSION Status: Acute (5) Chronic systolic heart failure Code(s): I50.22 - CHRONIC SYSTOLIC (CONGESTIVE) HEART FAILURE Status: Acute - Plan * Ventricular Tachycrdia- he is now in sinus rhythm * Acute on chronic systolic heart failure- improved volume status * HTN- blood pressure is better * DM- stable * Will discharge hoome today, with close outpatient follow-up..
[2017-07-19] MEDS: HumaLOG 300 UNITS/3 ML VIAL SC PRN (13:17)
--- NOTE | 2017-07-19 16:52 | DIS ---
DATE OF ADMISSION: 07/16/2017 DATE OF DISCHARGE: 07/19/2017 PRIMARY CARE PHYSICIAN: Dr. Valdez. DISCHARGE DISPOSITION: Home. PRIMARY DISCHARGE DIAGNOSES: 1. Probable ventricular tachycardia. 2. History of coronary artery disease. 3. Hypertension. 4. Chronic systolic heart failure. 5. Diabetes mellitus, type 2. 6. Peripheral vascular disease. DISCHARGE MEDICATIONS: The patient was taken off of metoprolol and placed on carvedilol 12.5 mg twic e a day, Lasix was increased to 40 mg p.o. daily, amlodipine 5 mg p.o. daily was added. He is to con tinue aspirin 325 mg daily, Lipitor 10 mg daily, [place] 10/325 q.4 hours as needed, Levemir insulin 46 units daily and 46 in the evening, lisinopril 5 mg at bedtime, Lyrica 100 mg t.i.d. CODE STATUS: FULL CODE. ALLERGIES: DULOXETINE, MORPHINE, ORANGE JUICE HOSPITAL COURSE: Mr. Miramontes is a pleasant 61-year-old gentleman, who was brought to the hospital aft er he experienced some chest pain and shortness of breath, while he was in the grocery store. He was brought in by EMS, and while he was in the ambulance, it was noted that he was in a wide complex tac hycardia. He was shocked with 200 joules. He has since converted to sinus rhythm and has remained i n sinus rhythm since then. He was temporarily placed on an amiodarone drip. He was seen by Cardiolo gy as well as industrial servicer. The industrial servicer, Dr. Hyman, recommended reprogramming his defibrillator. Also, suspected that some of his symptoms could be related to decompensated congestiv e heart failure and recommended diuresis of the patient. His Lasix was increased from 20 to 40 mg. He had received a couple of IV doses while in the hospital with good results. His weight went from 2 56 down to 243. He also was noted to be hypertensive with suboptimal blood pressure control, and for this reason, metoprolol was changed to carvedilol and amlodipine was added. He is to follow up with Dr. Hyman in the outpatient setting and also with Dr. Garcia.
--- NOTE | 2017-07-19 17:20 | PDOC.CTH ---
Cardiology Progress Note - Subjective he is doing well. No new issues or concerns. - Objective Vital Signs Temp Pulse Resp BP Pulse Ox 07/19/17 11:16 98 F 61 18 155/81 H 96 07/19/17 08:00 98 F 61 18 162/78 H 96 Weight 243 lb 14.4 oz 07/18/17 07/19/17 07/20/17 06:59 06:59 06:59 Intake Total 893 2040 Output Total 2150 1900 Balance -1257 140 - Physical Examination General/Neuro: alert & oriented x3, NAD Neck: no JVD present Lungs: unlabored respirations Heart: RRR Abdomen: NT/ND Extremities: other: (no edema) - Telemetry Telemetry Rhythm: NSR, PVC's - Labs Result Diagrams: 07/19/17 05:32 07/19/17 05:32 Troponin/CKMB CK-MB (CK-2) 4.6 ng/mL (0-6.6) 07/16/17 16:14 Troponin I 0.039 ng/mL (< 0.028) H 07/16/17 21:20 - Assessment/Plan 1. SVT s/p cardioverted on 07/16/17 2. CAD with hx of CABG x3 in 2014 3. Chronic systolic HF with Hx of AICD 4. HTN 5. CKD 6. PVD with hx of Rt 1st toe amputation 7. DM type 2 8. Hyperlipidemia PLAN: - ICD re programmed. - May discharge home - Follow up with Dr. Garcia in 2-3 weeks.
== END 2017-07-19 13:46 | disposition home or self-care (01) | DRG 308 ==
LOC: ERS 15:57 → IMCU/EMU 17:18 → 2NO 07-18 19:28
PROVIDERS: ADMIT Internal Medicine; ATTEND Internal Medicine
DX: I47.2 Ventricular tachycardia (principal); I50.23 Acute on chronic systolic (congestive) heart failure; E11.42 Type 2 diabetes mellitus with diabetic polyneuropathy; Z95.1 Presence of aortocoronary bypass graft; I11.0 Hypertensive heart disease with heart failure; I25.10 Atherosclerotic heart disease of native coronary artery without angina pectoris; Z95.810 Presence of automatic (implantable) cardiac defibrillator; Z96.651 Presence of right artificial knee joint; Z95.5 Presence of coronary angioplasty implant and graft; Z88.8 Allergy status to other drugs, medicaments and biological substances; Z87.891 Personal history of nicotine dependence; Z79.82 Long term (current) use of aspirin; Z79.4 Long term (current) use of insulin; Z88.5 Allergy status to narcotic agent; Z89.412 Acquired absence of left great toe; Z89.411 Acquired absence of right great toe; I25.5 Ischemic cardiomyopathy; E78.5 Hyperlipidemia, unspecified
CPT/HCPCS: 36415; 36416; 71045; 80048; 80053; 80061; 82553; 83605; 83690; 84443; 84484; 85025; 85610; 85730; 93005; 94760; 96365; 96366; 96372; 99211; A4216; G0463; J0282; J1650; J1815; J7070

== ENCOUNTER 2017-09-06 21:44 | Inpatient (IN) | payer MEDICARE ==
[2017-09-06 22:18] LABS: #Basophils 0.1 thou/uL (0.0-0.2); #Eosinphils 0.3 thou/uL (0.0-0.7); #Lymphocytes 2.5 thou/uL (1.20-3.40); #Monocytes 0.8 thou/uL (0.11-0.59); %Basophils 0.8 % (0.0-1.0); %Eosinophils 3.2 % (0.0-10.0); %Lymphocytes 23.7 % (21.0-51.0); %Monocytes 7.3 % (0.0-10.0); Hemoglobin 13.2 g/dL (14.0-18.0); Mean Corpuscular HGB CONC 34.3 g/dL (32.0-36.0); Mean Corpuscular Hemoglobin 30.5 pg (27.0-31.0); Mean Corpuscular Volume 88.8 fl (80.0-94.0); Mean Platelet Volume 9.3 fL (7.4-10.4); Platelet Count 213 thou/uL (130-400); RBC Distribution Width 12.8 % (11.5-14.5); Red Blood Cell (RBC) Count 4.33 mill/uL (4.70-6.10); White Blood Cell (WBC) Count 10.7 thou/uL (4.8-10.8)
[2017-09-06 22:24] LABS: INR-International Normal Ratio 1.1; PTT 39.1 SEC (22.9-36.1); Prothrombin Time 14.3 SEC (12.0-14.7)
--- NOTE | 2017-09-06 22:26 | RAD ---
AP VIEW OF THE CHEST: 09/06/17 INDICATION: Chest pain. FINDINGS: The single lead AICD is unchanged. Midline sternotomy wires are unchanged. Heart size and pulmonary v asculature are within normal limits. No pleural effusion or pneumothorax evident. IMPRESSION: No acute cardiopulmonary abnormality. POS: H
[2017-09-06 22:42] LABS: ALT (SGPT) 23 U/L (8-55); AST (SGOT) 23 U/L (5-34); Albumin 4.2 g/dL (3.5-5.0); Alkaline Phosphatase 155 U/L (40-150); Anion Gap 14 mmol/L (10-20); BUN (Urea Nitrogen) 79 mg/dL (8.4-25.7); Bilirubin, Total 0.4 mg/dL (0.2-1.2); CK (CPK) 845 U/L (30-200); Calc. Creatinine Clearance 0 mL/min (70-130); Calcium 9.5 mg/dL (7.8-10.44); Carbon Dioxide 20 mmol/L (22-29); Chloride 103 mmol/L (98-107); Estimated GFR-MDRD 27; Globulin 3.6 g/dL (2.4-3.5); Glucose 322 mg/dL (70-105); Lipase 77 U/L (8-78); Magnesium 2.1 mg/dL (1.6-2.6); Potassium 5.2 mmol/L (3.5-5.1); Protein, Total 7.8 g/dL (6.0-8.3); Sodium 132 mmol/L (136-145)
[2017-09-06 22:43] LABS: Troponin I Less than 0.010 ng/mL (< 0.028)
[2017-09-06 22:47] LABS: CKMB 9.3 ng/mL (0-6.6)
[2017-09-06 23:42] LABS: Bilirubin Negative (Negative); Blood, Urine Small (Negative); Clarity CLEAR (Clear); Glucose, Urine (Dipstick) 500 mg/dL (Negative); Leukocyte Negative (Negative); Nitrite Negative (Negative); Protein, Urine (Dipstick) 100 mg/dL (Neg-Trace); Specific Gravity, Urine 1.018 (1.002-1.036); Urobilinogen 0.2 mg/dL (0.2-1.0)
[2017-09-06 23:45] LABS: Bacteria/HPF None Seen HPF (None Seen); Hyaline Casts/LPF 0-3 HYALINE CAST LPF (0-3 Hyaline); Pathc Cast-AUWi Flag 0.14 (0-2.49); RBC/HPF None Seen HPF (0-3); Squamous Epithelial None Seen HPF (0-3); WBC/HPF 0-3 HPF (0-3)
[2017-09-07] MEDS ORDERED: Insulin Regular 300 UNITS/3 ML VIAL ONE (00:46)
[2017-09-07] MEDS ORDERED: Heparin 5,000 UNITS/ML VIAL ONE ×2 (00:46→08:24)
[2017-09-07 01:37] LABS: Troponin I Less than 0.010 ng/mL (< 0.028)
[2017-09-07] MEDS ORDERED: HumaLOG 300 UNITS/3 ML VIAL SC PRN (03:32)
[2017-09-07] MEDS ORDERED: Dextrose 5% in Water 1,000 ML IV PRN (03:32)
[2017-09-07] MEDS ORDERED: Dextrose 50% Abboject 50 ML SYRINGE SLOW IVP PRN (03:32)
[2017-09-07] MEDS ORDERED: Senokot 8.6 MG TAB PO PRN ×2 (03:34)
[2017-09-07] MEDS ORDERED: Acetaminophen 325 MG TAB PO PRN (03:34)
[2017-09-07] MEDS ORDERED: Mag-Al 1200 mg/1200 mg/30 ML UDCUP PO PRN (03:34)
[2017-09-07] MEDS ORDERED: Ondansetron HCl/PF 4 MG/2 ML Vial IVP PRN ×2 (03:34)
[2017-09-07] MEDS ORDERED: Bisacodyl 5 MG TAB PO PRN ×2 (03:34)
[2017-09-07] MEDS ORDERED: Nitroglycerin 0.4 MG TAB (25 Tab Bottle) SL PRN (03:34)
[2017-09-07] MEDS ORDERED: Calcium Carbonate 500 MG ChewTAB PO PRN (03:34)
[2017-09-07] MEDS ORDERED: hydrALAZINE 20 MG/ML VIAL SLOW IVP PRN (03:34)
[2017-09-07] MEDS ORDERED: Benzonatate 100 MG CAP PO PRN (03:34)
[2017-09-07] MEDS ORDERED: Loratadine 10 MG TAB PO PRN (03:34)
[2017-09-07] MEDS ORDERED: Diabetic Tussin 200 MG/10 ML UDCUP PO PRN (03:34)
[2017-09-07] MEDS ORDERED: Sodium Chloride 0.9% 1,000 ML IV SCH (03:45)
[2017-09-07 03:59] LABS: #Basophils 0.1 thou/uL (0.0-0.2); #Eosinphils 0.3 thou/uL (0.0-0.7); #Lymphocytes 3.4 thou/uL (1.20-3.40); #Monocytes 0.9 thou/uL (0.11-0.59); #Neutrophils 5.6 thou/uL (1.40-6.50); %Basophils 1.1 % (0.0-1.0); %Eosinophils 2.8 % (0.0-10.0); %Lymphocytes 32.9 % (21.0-51.0); %Monocytes 8.4 % (0.0-10.0); %Neutrophils 54.8 % (42.0-75.0); Hemoglobin 13.2 g/dL (14.0-18.0); Mean Corpuscular HGB CONC 33.7 g/dL (32.0-36.0); Mean Corpuscular Volume 88.9 fl (80.0-94.0); Mean Platelet Volume 9.3 fL (7.4-10.4); Platelet Count 203 thou/uL (130-400); RBC Distribution Width 12.7 % (11.5-14.5); White Blood Cell (WBC) Count 10.2 thou/uL (4.8-10.8)
[2017-09-07 04:14] LABS: ALT (SGPT) 23 U/L (8-55); AST (SGOT) 24 U/L (5-34); Albumin 4.1 g/dL (3.5-5.0); Alkaline Phosphatase 137 U/L (40-150); Anion Gap 14 mmol/L (10-20); BUN (Urea Nitrogen) 72 mg/dL (8.4-25.7); Bilirubin, Total 0.5 mg/dL (0.2-1.2); Calc. Creatinine Clearance 0 mL/min (70-130); Calcium 9.5 mg/dL (7.8-10.44); Carbon Dioxide 18 mmol/L (22-29); Chloride 109 mmol/L (98-107); Estimated GFR-MDRD 33; Globulin 3.4 g/dL (2.4-3.5); Glucose 122 mg/dL (70-105); Protein, Total 7.5 g/dL (6.0-8.3); Sodium 136 mmol/L (136-145)
[2017-09-07] MEDS ORDERED: HYDROcodone/Acetaminophen 10/325 mg Tablet PO PRN ×2 (04:24)
[2017-09-07] MEDS ORDERED: Aspirin 325 MG TAB ONE (08:24)
[2017-09-07] MEDS ORDERED: Metoprolol Tartrate 25 MG TAB ONE (08:24)
[2017-09-07] MEDS ORDERED: Amlodipine 5 MG TAB ONE (08:24)
[2017-09-07] MEDS ORDERED: Famotidine 20 MG TAB ONE (08:24)
[2017-09-07] MEDS ORDERED: Atorvastatin Calcium 10 MG TAB PO SCH (09:00)
[2017-09-07] MEDS ORDERED: Amlodipine 5 MG TAB PO SCH (09:00)
[2017-09-07 13:55] VITALS: BMI 32.5
[2017-09-07] MEDS: Aspirin 325 MG TAB PO SCH (14:25)
[2017-09-07] MEDS: Famotidine 20 MG TAB PO SCH (14:26)
[2017-09-07] MEDS: Pregabalin 50 MG CAP PO SCH ×3 (14:26→20:01)
[2017-09-07] MEDS: Heparin 5,000 UNITS/ML VIAL SC SCH ×2 (14:26→20:01)
[2017-09-07] MEDS: Metoprolol Tartrate 25 MG TAB PO SCH ×2 (14:26→20:02)
[2017-09-07] MEDS: HumaLOG 300 UNITS/3 ML VIAL SC PRN (17:03)
[2017-09-07] MEDS: Atorvastatin Calcium 10 MG TAB PO SCH (20:02)
[2017-09-08 05:01] LABS: #Basophils 0.1 thou/uL (0.0-0.2); #Eosinphils 0.4 thou/uL (0.0-0.7); #Lymphocytes 2.7 thou/uL (1.20-3.40); #Monocytes 0.7 thou/uL (0.11-0.59); #Neutrophils 4.1 thou/uL (1.40-6.50); %Eosinophils 4.5 % (0.0-10.0); %Lymphocytes 34.7 % (21.0-51.0); %Monocytes 8.4 % (0.0-10.0); %Neutrophils 51.6 % (42.0-75.0); Hemoglobin 11.7 g/dL (14.0-18.0); Mean Corpuscular HGB CONC 34.5 g/dL (32.0-36.0); Mean Corpuscular Hemoglobin 31.4 pg (27.0-31.0); Mean Corpuscular Volume 91.1 fl (80.0-94.0); Mean Platelet Volume 9.7 fL (7.4-10.4); Platelet Count 195 thou/uL (130-400); RBC Distribution Width 12.7 % (11.5-14.5); Red Blood Cell (RBC) Count 3.72 mill/uL (4.70-6.10); White Blood Cell (WBC) Count 7.9 thou/uL (4.8-10.8)
[2017-09-08 05:30] LABS: Anion Gap 12 mmol/L (10-20); BUN (Urea Nitrogen) 53 mg/dL (8.4-25.7); Calc. Creatinine Clearance 73 mL/min (70-130); Calcium 9.2 mg/dL (7.8-10.44); Carbon Dioxide 20 mmol/L (22-29); Chloride 108 mmol/L (98-107); Estimated GFR-MDRD 41; Glucose 362 mg/dL (70-105); Potassium 4.7 mmol/L (3.5-5.1); Sodium 135 mmol/L (136-145)
--- NOTE | 2017-09-08 08:07 | HP ---
DATE OF ADMISSION: 09/07/2017 CHIEF COMPLAINT: Abnormal heart rate and blood pressure with hypertension and tachycardia. PRIMARY CARE PHYSICIAN: Patricia Valdez M.D. PRIMARY POTATO CHIP FRYER: Dara Garcia M.D. HISTORY OF PRESENTING ILLNESS: Mr. Miramontes is a 61-year-old pleasant male with past medical history of chronic systolic congestive heart failure with EF of 45% to 50%, coronary artery disease, hypertension, diabetes, peripheral vascular disease and history of ventricular tachycardia, status p ost AICD placement in the past who presented to the emergency room with above-mentioned complaint. H istory is obtained by the patient himself and electronic medical records have been reviewed. The melo brady was recently admitted to our facility in 07/2017. At that time, he was found to have SVT and wa s evaluated both by Cardiology and Electrophysiology. He was initially temporarily treated with amio darone drip and was found to have decompensated congestive heart failure and his Lasix was increased from 20 to 40 mg daily. He was noted to be hypertensive and his metoprolol was changed to carvedilol and amlodipine was added. He was seen by Dr. Callejas who recommended reprogramming his defibrillator a nd it was reprogrammed to capture the heartbeat at 140 instead of 150. Mr. Miramontes reports that he has been working in the sun for the last 2 days and has probably had decre ased p.o. intake. He has also not been able to tolerate his carvedilol as it makes him dizzy, especi ally when working out in the sun. He has not been able to take this medicine for the last 2 days. Antonia olvera religiously checks his blood pressure twice a day because he is really scared for his heart issues. He has quit smoking as of last year as well. He is really trying to take care of himself. Unfortu nately, when he was trying to check his blood pressure today the machine would not read and eventuall y after changing the battery when he made the machine to read, his heart rate was in the 130s to 140s and his systolic blood pressure was over 190s. He called ambulance and was brought into the emergen cy room. EKG upon presentation to the emergency room showed atrial flutter with RVR at heart rate of 135 and w iglesia complex tachycardia. His AICD was interrogated and it was found out that he has been in the atri al flutter for about 3 hours. He did not require any medication, but spontaneously converted to norm al sinus rhythm while in the emergency room. He was given a bolus of IV heparin. Rest of his workup included a chest x-ray, which is negative for any acute changes. He does have tish dence of acute kidney insufficiency as a creatinine of 2.48 and his baseline being around normal to 1 .5 and also potassium of 5.2. His glucose was elevated to 322 and alkaline phosphatase to 155. His creatine kinase is elevated to 848. His cardiac enzymes are negative x3, but his CK-MB is 9.3. He i s now being admitted for recurrent ventricular tachycardia. At the time of my examination, he is asy mptomatic, but very tearful and emotional and upset over the reoccurrence. PAST MEDICAL HISTORY: 1. Coronary artery disease, status post coronary artery bypass graft. 2. Hypertension. 3. History of congestive heart failure, systolic in nature with most recent EF of 40% to 45%. 4. Diabetes, mellitus type 2. 5. Peripheral vascular disease. PAST SURGICAL HISTORY: 1. History of AICD placement in 11/2013 with subsequent extraction due to MRSA infection and vegetat ion by ANIL on the leads. Re-implantation of AICD in 09/05/2016 2. Cardiac catheterization in 08/2016 showing patent VALVERDE to LAD suggestive of diffuse [employer] arteri al disease, LV ejection fraction 40% to 45%. 3. Coronary artery bypass graft x4 vessels in 2014. 4. Coronary artery stenting. 5. Eleven back surgeries. 6. Six knee surgeries. 7. Amputation of first on both feet. 8. Wrist fusion on both arms. ALLERGIES: 1. CYMBALTA, which makes him homicidal and suicidal. 2. CHANTIX, which causes a bad reaction. 3. Fever blisters with ORANGE JUICE. FAMILY HISTORY: Significant for lung cancer, osteoarthritis, diabetes, but no family history of hear t disease. SOCIAL HISTORY: He is a former smoker and smoked for 48 years, at least a pack per day. He is curre ntly quit smoking. He does use cigar, but does not inhale. No history of alcohol or drug abuse. He lives alone. CODE STATUS: FULL CODE. MEDICATIONS: As per the most recent discharge summary. Lyrica 100 mg p.o. t.i.d., lisinopril 5 mg d aily, Lasix 40 mg daily, Coreg 12.5 mg p.o. b.i.d., atorvastatin 5 mg daily, aspirin 325 mg daily, No rvasc 5 mg daily, Levemir 46 units in the morning and 46 units at bedtime. REVIEW OF SYSTEMS: The following complete review of systems was negative, unless otherwise mentioned in the HPI or below: Constitutional: Weight loss or gain, ability to conduct usual activities. Sk in: Rash, itching. Eyes: Double vision, pain. ENT/Mouth: Nose bleeding, neck stiffness, pain, te nderness. Cardiovascular: Palpitations, dyspnea on exertion, orthopnea. Respiratory: Shortness of breath, wheezing, cough, hemoptysis, fever or night sweats. Gastrointestinal: Poor appetite, abdom inal pain, heartburn, nausea, vomiting, constipation, or diarrhea. Genitourinary: Urgency, frequenc y, dysuria, nocturia. Musculoskeletal: Pain, swelling. Neurologic/Psychiatric: Anxiety, depressio n. Allergy/Immunologic: Skin rash, bleeding tendency. It is negative except for those mentioned in the history and physical. LABORATORY DATA: CBC is unremarkable. PT, PTT, INR are unremarkable. Serum chemistry shows sodium of 132, potassium 5.2 with repeat potassium of 5, bicarbonate 20, BUN 79, creatinine 2.48, blood suga r 322, lactic acid 1.3, alkaline phosphatase 155, creatine kinase 846 with CK-MB of 9.3. Troponin le ss than 0.010 x3. BNP of 135. TSH normal. Lipase normal. Urinalysis shows proteinuria and glucosu cory. Chest x-ray by my review has no evidence to suggest any acute cardiopulmonary abnormality. A 1 2-lead EKG by my review shows wide complex tachycardia with heart rate of 135 beats per minute, likel y atrial flutter with aberrancy. Left ventricular hypertrophy without any acute ST or T-wave changes . Repeat EKG shows normal sinus rhythm at 96 beats per minute by my review. PHYSICAL EXAMINATION: VITAL SIGNS: Upon presentation, heart rate 135, respirations 20, temperature 98.4, saturating 97% on room air. Most recent blood pressure is 132/62. GENERAL: He is sitting up in chair and is very emotional and tearful as he is upset about the reoccu rrence of his cardiac issues. Otherwise, no acute distress, awake, alert, oriented x3. HEENT: Mucous membrane is moist and pink. No oropharyngeal exudate or erythema. Head is normocepha lic, atraumatic. Pupils are equal, reactive to light and accommodation. Extraocular movement intact . NECK: Supple without any lymphadenopathy, JVD or bruit. CHEST: Clear to auscultation without any wheezing, rales or rhonchi. CARDIOVASCULAR: Rate and rhythm is regular without any murmur, rubs or gallops. ABDOMEN: Soft, nontender, nondistended with positive bowel sounds. EXTREMITIES: Free of any cyanosis or clubbing. He has trace edema, more so on the right lower extre mity than the left lower extremity. NEUROLOGIC: Nonfocal. PSYCHIATRIC: Anxiety and tearfulness as above. SKIN: Free of any rashes or bruises. He does have chronic venous stasis changes in bilateral lower extremities and some erythema on his right knee where he has had a knee replacement multiple years ag o. There is no warmth to it. IMPRESSION AND PLAN: 1. Atrial flutter with aberrancy as a wide complex tachycardia. We will repeat his echocardiogram a t this time. His last echocardiogram in our system is from 2014. Continue to trend serial cardiac e nzymes, but most likely reason for his recurrent atrial flutter is uncontrolled hypertension. The patient has failed to take his carvedilol because of significant s iglesia effects at home with resultant uncontrolled hypertension. 2. Hypertensive urgency. His blood pressure is much better controlled upon presentation. We will s tart him back on his metoprolol, which was better tolerated by the patient. Discontinue his Coreg at this time. Restart his Norvasc at this time as well. 3. Acute renal insufficiency. This is secondary to dehydration as the patient given the history of the same. At this time, we will gently rehydrate him with close monitoring of his intake and output, given his history of some systolic dysfunction. Currently, he does not appear to be in any decompen sation with regards to his congestive heart failure. 4. History of chronic systolic congestive heart failure, currently compensated. At this time, we wi ll hold his Lasix given his renal insufficiency. Monitor strict I's and O's and monitor clinically. 5. History of coronary artery disease. Resume home medications including the beta alexei, statin, and aspirin. We will hold the BO inhibitor given the renal insufficiency at this time. 6. History of peripheral vascular disease, status post amputation of both toes. He has quit smoking . 7. Diabetes mellitus, type 2. We will start him on insulin sliding scale. We will hold the Levemir as he is going to be n.p.o. for now to avoid hypoglycemia. 8. Add deep venous thrombosis and gastrointestinal prophylaxis. 9. Add p.r.n. medication order. DISPOSITION: The patient is currently being admitted for recurrent atrial flutter and most likely wi ll need ablation. He recently had the AICD reprogram, but he continues to have recurrent symptoms. Further management will depend upon Cardiology and Electrophysiology recommendations. Estimated elaina th of stay at this time is at least 2-3 midnights.
--- NOTE | 2017-09-08 09:16 | CON ---
DATE OF CONSULTATION: 09/07/2017 HISTORY OF PRESENT ILLNESS: The patient is a pleasant 61-year-old gentleman who presented with a rapid heart rate. The patient has a history of ischemic cardiomyopathy. He has previously undergone coronary bypass surgery and has a history of diffuse coronary artery disease. The patient has a long history of ventricular tachycardia. He has had placement of automatic implantable cardioverter-defibrillator. He also developed sepsis and had to have this reimplanted. The patient has a long history of monomorphic VT. He has previously had been undergone electrocardioversion. The patient once again noted that his heart rate was elevated. He did not have any palpitations. He came to the emergency room for further evaluation. The patient did not have any chest discomfort. PAST MEDICAL HISTORY: 1. Coronary artery disease. 2. Hypertension. 3. Peripheral vascular disease. PAST SURGICAL HISTORY: Coronary bypass surgery, knee surgery, and toe surgery. SOCIAL HISTORY: He is a former smoker. MEDICATIONS: See nursing list. ALLERGIES: AMLODIPINE, MORPHINE, ORANGE, DULOXETINE. REVIEW OF SYSTEMS: The patient denies any bruising, bright red blood per rectum. Ten-point system otherwise unremarkable. PHYSICAL EXAMINATION: GENERAL: Obese gentleman, in no acute distress. VITAL SIGNS: Blood pressure 148/80, heart rate is 60 and regular. NECK: No jugular distention. LUNGS: Clear to auscultation. HEART: Regular rate and rhythm, normal S1, S2. ABDOMEN: Distended. EXTREMITIES: Showed trace edema. LABORATORY DATA: White blood count 10.2, hemoglobin 13.2, hematocrit 39.1, his platelets are 203,000. Sodium is 136, potassium 5.0, chloride 109, bicarbonate 18, BUN 72, creatinine 2.08. Troponin 0.02.EKG revealed:1. Monomorphic ventricular tachycardia.2. Normal sinus rhythm with a normal ECG. IMPRESSION: 1. Recurrent monomorphic ventricular tachycardia. 2. History of AICD placement. 3. History of coronary bypass surgery. 4. Ischemic cardiomyopathy. 5. Hypertension. This gentleman presents with recurrent monomorphic VT. His best option appeared either be treatment with possibly Betapace or ablation for his recurrent ventricular tachycardia. Await EP evaluation. [facility]
[2017-09-08] MEDS: Aspirin 325 MG TAB PO SCH (09:27)
[2017-09-08] MEDS: Pregabalin 50 MG CAP PO SCH ×3 (09:27→20:41)
[2017-09-08] MEDS: Heparin 5,000 UNITS/ML VIAL SC SCH ×2 (09:27→20:42)
[2017-09-08] MEDS: Famotidine 20 MG TAB PO SCH (09:27)
[2017-09-08] MEDS: Metoprolol Tartrate 25 MG TAB PO SCH ×2 (09:28→20:41)
--- NOTE | 2017-09-08 09:40 | PDOC.PN ---
- Subjective Encounter Start Date: 09/08/17 Encounter Start Time: 10:50 Subjective: Patient without further tachycardia. No CP. No SOB. Awaiting EP eval. - Objective MAR Reviewed: Yes Vital Signs & Weight: Vital Signs (12 hours) Temp Pulse Resp BP BP Pulse Ox 09/08/17 07:50 97.9 F 72 16 131/63 98 09/08/17 04:00 97.5 F L 66 19 114/58 L 98 09/08/17 03:04 97 Weight Weight 242 lb 8 oz I&O: 09/07/17 09/08/17 09/09/17 06:59 06:59 06:59 Intake Total 360 Output Total 1100 Balance -740 Result Diagrams: 09/08/17 03:52 09/08/17 03:52 Additional Labs: Accuchecks 09/08/17 09/07/17 09/07/17 00:06 16:55 10:36 POC Glucose 382 H 205 H 183 H Phys Exam - Physical Examination Constitutional: NAD HEENT: moist MMs Respiratory: no wheezing, no rales, no rhonchi, clear to auscultation bilateral Cardiovascular: RRR, no significant murmur Gastrointestinal: soft, positive bowel sounds Musculoskeletal: no edema Neurological: non-focal, moves all 4 limbs Psychiatric: normal affect, A&O x 3 Dx/Plan (1) Monomorphic ventricular tachycardia Code(s): I47.2 - VENTRICULAR TACHYCARDIA Status: Acute Comment: Now back in NSR. EP consult to consider ablation. (2) Chronic systolic heart failure Code(s): I50.22 - CHRONIC SYSTOLIC (CONGESTIVE) HEART FAILURE Status: Chronic (3) Coronary artery disease Code(s): I25.10 - ATHSCL HEART DISEASE OF [place] CORONARY ARTERY W/O ANG PCTRS Status: Chronic (4) Diabetes mellitus type 2 in obese Code(s): E11.69 - TYPE 2 DIABETES MELLITUS WITH OTHER SPECIFIED COMPLICATION; E66.9 - OBESITY, UNSPECIFIED Status: Chronic (5) Hypertension Code(s): I10 - ESSENTIAL (PRIMARY) HYPERTENSION Status: Chronic Comment: severe elevation resolved (6) Acute renal failure (ARF) Status: Acute Comment: improving - Plan cont current plan of care, out of bed/ambulate, DVT proph w/SCDs * . - Discharge Day Encounter end time: 11:10
--- NOTE | 2017-09-08 13:13 | PDOC.CTH ---
<Hamida Davis - Last Filed: 09/08/17 13:09> Cardiology Progress Note - Subjective The pt seen and examined. No overnight events. No cardiac complaints. He denied palpitation, fluttering in his chest, or alarm goes off from AICD. - Objective Vital Signs Temp Pulse Resp BP BP Pulse Ox 09/08/17 11:10 98 F 60 17 131/61 98 09/08/17 07:50 97.9 F 72 16 131/63 98 09/08/17 04:00 97.5 F L 66 19 114/58 L 98 09/08/17 03:04 97 Weight 242 lb 8 oz 09/07/17 09/08/17 09/09/17 06:59 06:59 06:59 Intake Total 360 Output Total 1100 Balance -740 - Physical Examination General/Neuro: alert & oriented x3 Neck: no JVD present Lungs: CTA Heart: RRR Abdomen: soft Extremities: other: (1-2+ pitting BLE edema) - Telemetry Telemetry Rhythm: SB-SR 57-60s - Labs Result Diagrams: 09/08/17 03:52 09/08/17 03:52 Troponin/CKMB CK-MB (CK-2) 9.3 ng/mL (0-6.6) H* 09/06/17 22:03 Troponin I 0.020 ng/mL (< 0.028) 09/07/17 03:36 - Assessment/Plan 1. Recurrent Monomorphic VT - Remains in SR. Plan for Ablation by EP today. 2. CAD with Hx of CABG x3 in 2014 - stable with current meds. Cont. to monitor by Tele 3. Ischemic CMY with Hx of AICD placement - stable 4. Chronice systolic HF - stable. Not on BO or Lasix due to hx of CKD. cont. to monitor 5. HTN - stable 6. CKD - slightly improving today 7. 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 monitor 8. DM type 2 - ACHS BG with SS Insulin; managed by PCP 9. Hyperlipidemia - on Statin 10. Ex-smoker in 04/2017 - Encourage to continue smoking cessation MAR reviewed Review of Systems - Review of Systems Constitutional: reports: no symptoms reported EENTM: reports: no symptoms reported Respiratory: reports: no symptoms reported Cardiac (ROS): reports: no symptoms reported ABD/GI: reports: no symptoms reported : reports: no symptoms reported Musculoskeletal: reports: no symptoms reported <Ranulfo Garcia - Last Filed: 09/08/17 18:06> Cardiology Progress Note - Objective Vital Signs Temp Pulse Resp BP Pulse Ox 09/08/17 15:10 97.6 F 61 19 138/68 138 H 09/08/17 11:10 98 F 60 17 131/61 98 09/08/17 07:50 97.9 F 72 16 131/63 98 Weight 242 lb 8 oz 09/07/17 09/08/17 09/09/17 06:59 06:59 06:59 Intake Total 360 720 Output Total 1100 1000 Balance -740 -280 - Labs Result Diagrams: 09/08/17 03:52 09/08/17 03:52 Troponin/CKMB CK-MB (CK-2) 9.3 ng/mL (0-6.6) H* 09/06/17 22:03 Troponin I 0.020 ng/mL (< 0.028) 09/07/17 03:36 - Assessment/Plan Pt. seen and eval. by me. I agree with the A/P by the GRADUATE RESEARCH ASSISTANT. Chest is clear. RRR at this time. Plan is to reprogram the AICD to a lower detect rate.Then he can be d/c'd to home.
--- NOTE | 2017-09-08 15:45 | CON ---
DATE OF CONSULTATION: 09/08/2017 REFERRING PHYSICIAN: Jori Bates M.D. ENAMEL SHADER: Dara Garcia M.D. REASON FOR CONSULTATION: Recurrent ventricular tachycardia. HISTORY OF PRESENT ILLNESS: Mr. Miramontes is a 61-year-old gentleman well known to our practice for history of ventricular tachycardia. He presented to the emergency room on 09/06/2017 after checking his blood pressure at home and finding his heart rate elevated around 140 beats per minute. He had been working on a roof and was out fishing that day. He denies any heart racing, palpitations, chest pain or perceived ICD shocks. He presented to the emergency room for further evaluation. He has inclusion of a single chamber ICD which was interrogated in the emergency room. Overall, Mr. Miramontes currently feels well. He does not have any cardiac concerns. He denies any heart racing, palpitations, chest pain, pressure, stroke, or stroke-like symptoms. He denies any syncope or near syncopal episodes. He has not any perceived ICD shocks. He denies any increasing shortness of breath, swelling of the extremities or progressive fatigue. PAST MEDICAL HISTORY: 1. Recurrent wide complex tachycardia, likely ventricular tachycardia. 2. Single chamber ICD implant on 09/09/2016. 3. History of sepsis and MRSA infection of original ICD prompting explant and reimplantation on 09/09/2016. 4. Type 2 diabetes, on insulin. 5. Poorly controlled hypertension. 6. Chronic kidney disease. 7. Coronary artery disease with multiple myocardial infarctions in the past. 8. Tobacco habituation. 9. Bilateral knee replacements. HOME MEDICATIONS: Aspirin 325 mg daily, lisinopril 5 mg daily, Lasix 40 mg daily, Lipitor 10 mg daily, Lyrica 100 mg t.i.d., amlodipine 5 mg daily, Levemir 46 units q.a.m. and metoprolol. ALLERGIES: Include AMLODIPINE, DULOXETINE, MORPHINE, ORANGE AND ORANGE FLAVOR. SOCIAL HISTORY: Recently quit smoking; however 40+ pack year history of tobacco habituation. Positive for alcohol consumption. Negative for illegal drug use. REVIEW OF SYSTEMS: Twelve point review of systems was conducted and is negative except that listed in the HPI. PHYSICAL EXAMINATION: VITAL SIGNS: Temperature 98 degrees Fahrenheit, pulse is 60, respirations 17, oxygen saturation 98%, and blood pressure 131/61. GENERAL: This is a well-appearing, well-nourished, well-groomed male in no acute distress. He is somewhat tearful on examination. HEENT: He is normocephalic, atraumatic. NECK: Supple without jugular venous distention. His thyroid is nonpalpable and he has no lymphadenopathy. MOUTH: His oral mucosa is moist and pink with adequate dentition. HEART: Rate is regularly regular without significant murmur, rub or gallop. His PMI is nonpalpable. EXTREMITIES: Lower extremities are warm and dry to touch without clubbing or cyanosis. Bilateral 1+ pitting edema is noted to bilateral lower extremities along with some abrasions along his right anterior johnson. There is some redness to his right lower extremity that is questionable for cellulitis. LUNGS: Clear to auscultation bilaterally without wheezes, crackles or rhonchi. Respirations are even and unlabored with good bilateral excursion. ABDOMEN: Soft, obese and nontender. There are positive bowel sounds noted throughout without palpable masses. NEUROLOGIC: Grossly intact and nonfocal. His device is palpable at the left infraclavicular fossa without swelling, bruising or drainage. His gait is stable. DATABASE: Device interrogation; [employer] expressed transmission on 09/06/2017, this is a single chamber Med[employer] VVI atrial fibrillation, date of implant is 09/09/2016. Mode is currently VVI with lower rate limit of 40. VT detection is on with lower limit of 140. There were 2 episodes of ventricular tachycardia that occurred from 130-140 beat per minute range. On 09/06/2017, patient had 2-1/2 hour episode of slow VT that mostly occurred under the detection rate, but eventually climbed to 143 beats per minute at which point the device attempted to pace terminate. There are three other episodes of ventricular tachycardia that were detected by the device that were much shorter in duration, all under 5 minutes. OptiVol fluid index is well below threshold. Of the ventricular tachycardia episodes that were captured above the detect rate of 140 beats per minute, the device was able to pace terminate his VT. No ICD shocks were delivered. No atrial arrhythmias were detected and AF burden is 0. Device is functioning normally. Review of telemetry and EKGs, patient is currently maintained in sinus rhythm with mild first degree AV block and [place] intervals at 200-240 milliseconds. Heart rates stay between 55 and 75 beats per minute with minimal ectopy noted. No additional ventricular tachycardia has been captured arriving to the emergency room. LABORATORY DATA: On 09/08/2017; WBC 7.9, hemoglobin is 11.7, hematocrit is 33.9 , platelet count is 195. Chemistry on 09/08/2017; sodium 135, potassium 4.7, chloride 108, carbon dioxide 20, BUN is 53, creatinine is 1.73. Serial troponins were negative. IMPRESSION: 1. Recurrent wide complex tachycardia, likely monomorphic ventricular tachycardia, slow rate- just below detection zone. 2. Single chamber ICD in situ with normal operation. 3. Ischemic cardiomyopathy, medically managed by Cardiology. 4. Coronary artery disease with prior myocardial infarction and bypass grafting. 5. Hypertension. RECOMMENDATIONS: We again found Mr. Miramontes continues to have recurrent wide complex tachycardia episodes that are slow. Once they reach the ICD's programmed detection zone, they are promptly terminated. With his current hospitalization here after sustained episode of VT below the detect rate of his ICD, which is currently set at 140-200 beats per minute. He was asymptomatic with this episode. We find that this again is questionably an atrial flutter versus ventricular tachycardia. We will schedule him for an EP study and appropriate ablation to follow in the near future as an outpatient. In the interim, we are dropping his detect rate the lower limit to 130 beats per minute. Recommend additional rate control, possibly with digoxin. He may also benefit from upgrade to dual-chamber with ICD instead of his single chamber device which he currently has. This was discussed with the patient who agrees with the plan of care. This will be scheduled in the near future as an outpatient. [facility]
[2017-09-08] MEDS: HumaLOG 300 UNITS/3 ML VIAL SC PRN (17:51)
[2017-09-08] MEDS: Atorvastatin Calcium 10 MG TAB PO SCH (20:42)
[2017-09-09] MEDS: Heparin 5,000 UNITS/ML VIAL SC SCH ×2 (09:40→09:47)
--- NOTE | 2017-09-09 09:43 | PDOC.PN ---
- Subjective Encounter Start Date: 09/09/17 Encounter Start Time: 11:45 Subjective: Patient set up for EP study this AM, but equipment being repaired, so -: Dr. Hyman to do as outpatient. No CP. No SOB. No racing heart. - Objective MAR Reviewed: Yes Vital Signs & Weight: Vital Signs (12 hours) Temp Pulse Resp BP Pulse Ox 09/09/17 07:55 96.5 F L 63 14 160/71 H 97 09/09/17 04:00 97.6 F 59 L 16 113/53 L 99 Weight Weight 242 lb 8 oz I&O: 09/08/17 09/09/17 09/10/17 06:59 06:59 06:59 Intake Total 360 840 Output Total 1100 1350 Balance -740 -510 Result Diagrams: 09/08/17 03:52 09/08/17 03:52 Additional Labs: Accuchecks 09/09/17 09/08/17 09/08/17 05:25 20:30 16:32 POC Glucose 163 H 239 H 282 H 09/08/17 12:07 POC Glucose 286 H Phys Exam - Physical Examination Constitutional: NAD HEENT: moist MMs Respiratory: no wheezing, no rales, no rhonchi, clear to auscultation bilateral Cardiovascular: RRR, no significant murmur Gastrointestinal: soft, positive bowel sounds Neurological: non-focal, moves all 4 limbs Psychiatric: normal affect, A&O x 3 Dx/Plan (1) Monomorphic ventricular tachycardia Code(s): I47.2 - VENTRICULAR TACHYCARDIA Status: Acute Comment: Now back in NSR. Dr. Hyman has set ICD down to 130 BPM to trigger and will f/u outpatient. Increase Metoprolol to 50mg BID per Dr. Hyman recommendations. (2) Chronic systolic heart failure Code(s): I50.22 - CHRONIC SYSTOLIC (CONGESTIVE) HEART FAILURE Status: Chronic (3) Coronary artery disease Code(s): I25.10 - ATHSCL HEART DISEASE OF [place] CORONARY ARTERY W/O ANG PCTRS Status: Chronic (4) Diabetes mellitus type 2 in obese Code(s): E11.69 - TYPE 2 DIABETES MELLITUS WITH OTHER SPECIFIED COMPLICATION; E66.9 - OBESITY, UNSPECIFIED Status: Chronic (5) Hypertension Code(s): I10 - ESSENTIAL (PRIMARY) HYPERTENSION Status: Chronic Comment: severe elevation resolved (6) Acute renal failure (ARF) Status: Acute Comment: improving - Plan cont current plan of care [place] with Dr. Hyman and patient cleared to go home. * . - Discharge Day Encounter end time: 12:35
[2017-09-09] MEDS: Pregabalin 50 MG CAP PO SCH (09:46)
[2017-09-09] MEDS: Metoprolol Tartrate 25 MG TAB PO SCH (09:47)
[2017-09-09] MEDS: Famotidine 20 MG TAB PO SCH (09:47)
[2017-09-09] MEDS: Aspirin 325 MG TAB PO SCH (10:02)
[2017-09-09 11:42] VITALS: BP 172/76; TEMP 97.6
[2017-09-09] MEDS: HumaLOG 300 UNITS/3 ML VIAL SC PRN (13:56)
--- NOTE | 2017-09-09 14:07 | PDOC.CTH ---
Cardiology Progress Note - Subjective The pt seen and examined. No overnight events. No cardiac complaints. His BP was elevated around noon due to under stress. - Objective Vital Signs Temp Pulse Resp BP BP Pulse Ox 09/09/17 11:10 97.6 F 60 19 172/76 H 97 09/09/17 08:00 97.6 F 60 19 09/09/17 07:55 96.5 F L 63 14 160/71 H 97 09/09/17 04:00 97.6 F 59 L 16 113/53 L 99 Weight 242 lb 8 oz 09/08/17 09/09/17 09/10/17 06:59 06:59 06:59 Intake Total 360 840 Output Total 1100 1350 Balance -740 -510 - Physical Examination General/Neuro: alert & oriented x3 Neck: no JVD present Lungs: CTA Heart: RRR Abdomen: soft Extremities: other: (No edema) - Telemetry Telemetry Rhythm: SR 53-60s - Labs Result Diagrams: 09/08/17 03:52 09/08/17 03:52 Troponin/CKMB CK-MB (CK-2) 9.3 ng/mL (0-6.6) H* 09/06/17 22:03 Troponin I 0.020 ng/mL (< 0.028) 09/07/17 03:36 - Assessment/Plan 1. Recurrent Monomorphic VT - Remains in SR. AICD detect rate was set to 130/ min. Possible Ablation and BiV upgrade by EP as outpt. 2. CAD with Hx of CABG x3 in 2014 - stable with current meds. Cont. to monitor by Tele 3. Ischemic CMY with Hx of AICD placement - stable 4. Chronice systolic HF - stable. Not on BO or Lasix due to hx of CKD. cont. to monitor 5. HTN - stable 6. CKD - slightly improving today 7. 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 monitor 8. DM type 2 - ACHS BG with SS Insulin; managed by PCP 9. Hyperlipidemia - on Statin 10. Ex-smoker in 04/2017 - Encourage to continue smoking cessation MAR reviewed * From Cardiac standpoint, the pt is stable to d/verenice home. The pt will f/u with Dr Garcia' office after f/u with Dr Hyman's office. Review of Systems - Review of Systems Constitutional: reports: no symptoms reported EENTM: reports: no symptoms reported Respiratory: reports: no symptoms reported Cardiac (ROS): reports: no symptoms reported ABD/GI: reports: no symptoms reported : reports: no symptoms reported Musculoskeletal: reports: no symptoms reported Skin: reports: no symptoms reported Neurological: reports: no symptoms reported
--- NOTE | 2017-09-10 03:15 | DIS ---
PRIMARY CARE PHYSICIAN: Patricia Valdez MD REASON FOR ADMISSION: Wide complex tachycardia. DIAGNOSES AT DISCHARGE: 1. Monomorphic ventricular tachycardia. 2. Chronic systolic congestive heart failure. 3. Coronary artery disease. 4. Diabetes mellitus type 2. 5. Hypertension. 6. Acute on chronic renal failure. PROCEDURE: None. CONSULTATIONS: 1. Cardiology, Dr. Bates for Dr. Garcia. 2. Electrophysiology, Dr. Hyman. PERTINENT LABORATORY DATA: Creatinine on admission 2.48, down to 1.73 at discharge, which is within the range of his typical. SUMMARY OF HOSPITAL COURSE: This is a 61-year-old white male with a past medical history of chronic systolic congestive heart failure with an EF of 45%-50%; coronary artery disease; hypertension; diabe trent; and history of ventricular tachycardia, status post AICD placement. He presented to the emergen cy room with tachycardia and hypertension, was noted to have a wide complex tachycardia in the emerge ncy room, thought at that time to possibly be atrial flutter with aberrancy. He spontaneously conver mireya back to normal sinus rhythm in the emergency room. AICD recorded that his event has been about 3 hours long, but was not tachycardic enough to trigger a corrective shock. The patient was placed in the hospital. Dr. Bates was consulted. He recommended EP evaluation. Dr. Hyman did evaluate the patient, consider doing an EP study in the hospital; however, the equipment was being repaired, so katherine olvera recommended outpatient followup. He also recommended increasing the patient's beta alexei and had the AICD turned down to 130 beats per minute as the trigger for corrective shock. On the day of dis charge, the patient was doing well, eager to go home. He was asymptomatic throughout his hospital st ay and had no further events on his pvc monitor. DISCHARGE MANAGEMENT: Discharged home. Follow up with Dr. Hyman as indicated. His office will call him for an appointment. Also, follow up with Dr. Valdez in a couple weeks and with Dr. Garcia in 2-3 weeks. ACTIVITY: As tolerated. DIET: Healthy heart diet. DISCHARGE MEDICATIONS: 1. Metoprolol tartrate 50 mg twice a day, 60 tablets dispensed and resume all other home medications . 2. Aspirin 325 mg daily. 3. Levemir 46 units in the morning. 4. Lipitor 10 mg at night. 5. Furosemide 40 mg daily. 6. Lisinopril 25 mg at night. 7. Lyrica 100 mg 3 times a day. Also note, arranging the details of this discharge took 35 minutes.
--- NOTE | 2017-09-22 09:02 | ADD-CON ---
ADDENDUM DATE OF CONSULTATION: 09/08/2017 This is China Villalta, Nurse Practitioner, dictating a scribe for Dr. Vickey Hyman. ELECTROPHYSIOLOGY CONSULTATION NOTE CONSULTING PHYSICIAN: Dr. Vickey Hyman. SOCIAL HISTORY: Longstanding history of tobacco habituation, recently quit within the past 3 months, negative for alcohol consumption and illicit drug use. FAMILY HISTORY: Noncontributory.
== END 2017-09-09 14:18 | disposition home or self-care (01) | DRG 309 ==
LOC: ERS 21:44 → ERHOLD 09-07 00:30 → 2NO 09-07 13:12
PROVIDERS: ADMIT Internal Medicine; ATTEND Internal Medicine
DX: I47.2 Ventricular tachycardia (principal); N17.9 Acute kidney failure, unspecified; E11.22 Type 2 diabetes mellitus with diabetic chronic kidney disease; E11.51 Type 2 diabetes mellitus with diabetic peripheral angiopathy without gangrene; I50.22 Chronic systolic (congestive) heart failure; I13.0 Hypertensive heart and chronic kidney disease with heart failure and stage 1 through stage 4 chronic kidney disease, or unspecified chronic kidney disease; I16.0 Hypertensive urgency; I25.10 Atherosclerotic heart disease of native coronary artery without angina pectoris; N18.9 Chronic kidney disease, unspecified; I25.5 Ischemic cardiomyopathy; E66.9 Obesity, unspecified; Z68.32 Body mass index [BMI] 32.0-32.9, adult; I25.2 Old myocardial infarction; Z86.14 Personal history of Methicillin resistant Staphylococcus aureus infection; Z87.891 Personal history of nicotine dependence; Z88.5 Allergy status to narcotic agent; Z91.018 Allergy to other foods; Z88.8 Allergy status to other drugs, medicaments and biological substances; Z79.82 Long term (current) use of aspirin; Z79.4 Long term (current) use of insulin; Z79.899 Other long term (current) drug therapy; Z95.1 Presence of aortocoronary bypass graft; Z95.810 Presence of automatic (implantable) cardiac defibrillator; Z96.653 Presence of artificial knee joint, bilateral
CPT/HCPCS: 36415; 36416; 71045; 80048; 80053; 81003; 81015; 82553; 83605; 83690; 83735; 83880; 84443; 84484; 85025; 85610; 85730; 93005; 93306; 96361; 96372; 96374; 96375; A4216; J1644; J1815

== ENCOUNTER → 2017-09-29 | Day surgery (SDC) | payer MEDICARE ==
[2017-09-26 09:59] VITALS: BMI 31.6
[~2017-09-29] MED LIST: DOPamine 400 MG/D5W 250 ML 250 ML ONE; Fentanyl 100 MCG/2 ML VIAL ONE; Heparin 10,000 UNITS/1 ML VIAL ONE; Lidocaine 1% (PF) 30 ML VIAL ONE; Midazolam HCl 2 mg/2 ml Vial ONE; PROPOFOL 200 MG/20 ML VIAL ONE; Propofol 1,000 MG/100 ML VIAL IV ONE; Propofol 500 MG/50 ML VIAL ONE
[2017-09-29 08:14] LABS: #Basophils 0.1 thou/uL (0.0-0.2); #Eosinphils 0.4 thou/uL (0.0-0.7); #Lymphocytes 2.1 thou/uL (1.20-3.40); #Monocytes 0.6 thou/uL (0.11-0.59); #Neutrophils 6.2 thou/uL (1.40-6.50); %Basophils 0.6 % (0.0-1.0); %Eosinophils 4.1 % (0.0-10.0); %Lymphocytes 22.3 % (21.0-51.0); %Monocytes 6.6 % (0.0-10.0); %Neutrophils 66.4 % (42.0-75.0); Hemoglobin 12.5 g/dL (14.0-18.0); Mean Corpuscular HGB CONC 32.9 g/dL (32.0-36.0); Mean Corpuscular Hemoglobin 29.5 pg (27.0-31.0); Mean Corpuscular Volume 89.6 fl (80.0-94.0); Platelet Count 235 thou/uL (130-400); RBC Distribution Width 12.7 % (11.5-14.5); Red Blood Cell (RBC) Count 4.25 mill/uL (4.70-6.10); White Blood Cell (WBC) Count 9.3 thou/uL (4.8-10.8)
[2017-09-29 08:37] LABS: ALT (SGPT) 20 U/L (8-55); AST (SGOT) 14 U/L (5-34); Albumin 3.8 g/dL (3.5-5.0); Alkaline Phosphatase 175 U/L (40-150); Anion Gap 11 mmol/L (10-20); BUN (Urea Nitrogen) 53 mg/dL (8.4-25.7); Bilirubin, Total 0.4 mg/dL (0.2-1.2); Calc. Creatinine Clearance 62 mL/min (70-130); Calcium 9.4 mg/dL (7.8-10.44); Carbon Dioxide 25 mmol/L (22-29); Chloride 103 mmol/L (98-107); Estimated GFR-MDRD 35; Globulin 3.2 g/dL (2.4-3.5); Glucose 414 mg/dL (70-105); Potassium 4.7 mmol/L (3.5-5.1); Sodium 134 mmol/L (136-145)
[2017-09-29 08:43] LABS: PTT 36.4 SEC (22.9-36.1); Prothrombin Time 13.7 SEC (12.0-14.7)
--- NOTE | 2017-09-29 16:41 | EKG ---
Test Reason : PREOP Blood Pressure : / mmHG Vent. Rate : 062 BPM Atrial Rate : 062 BPM P-R Int : 226 ms QRS Dur : 112 ms QT Int : 422 ms P-R-T Axes : 065 055 057 degrees QTc Int : 428 ms Sinus rhythm with 1st degree A-V block Non-specific intra-ventricular conduction delay Possible Inferior infarct , age undetermined Abnormal ECG Confirmed by THEA CALDERÓN ([id number]) on 09/29/2017 4:40:33 PM Referred By: KENYON Confirmed By:THEA CALDERÓN
--- NOTE | 2017-09-29 16:49 | EKG ---
Test Reason : POST EP STUDY/ABLATI Blood Pressure : / mmHG Vent. Rate : 057 BPM Atrial Rate : 057 BPM P-R Int : 226 ms QRS Dur : 120 ms QT Int : 450 ms P-R-T Axes : 067 064 073 degrees QTc Int : 438 ms Sinus bradycardia with 1st degree A-V block Non-specific intra-ventricular conduction delay Possible Inferior infarct (cited on or before 29-SEP-2017) Abnormal ECG Confirmed by THEA CALDERÓN ([id number]) on 09/29/2017 4:49:05 PM Referred By: KENYON Confirmed By:THEA CALDERÓN
--- NOTE | 2017-09-29 20:51 | OP ---
DATE OF PROCEDURE: 09/29/2017 EP STUDY AND RADIOFREQUENCY ABLATION REPORT REFERRING PHYSICIAN: Dr. Garcia. REASON FOR PROCEDURE: Mr. Miramontes is a 61-year-old man, who has a history of both ventricular tachyca rdia and atrial flutter with a prior history of ischemic cardiomyopathy, but only mildly reduced LVEF of 45%-50%. He had recurrent ventricular tachycardia, which ICD has been detecting and terminating. Also, EKGs suggesting a possible atrial flutter was also seen during his past hospitalization. He is here for EP study to determine the inducible arrhythmias and possible ablation procedures. PROCEDURE: The patient received propofol from anesthesia specialist. After adequate level of sedati on achieved, the left femoral venous area was prepped, draped, and anesthetized using subcutaneous li docaine, and with ultrasound guidance, two 8-[place] short sheaths were introduced. Through these a d ecapolar catheter was advanced to the RV, His bundle, right atrium, and CS position. An octapolar ca theter was placed in the His position and the RV. Pacing, mapping, and recording was performed in ea ch location. FINDINGS: The baseline cycle length 946 milliseconds sinus rhythm, KS 230, QRS 105, QT 410, AH 172, HV 48 milliseconds. Sinus node recovery time was 1378; after 600 milliseconds overdrive pacing, michelle nary sinus node recovery time was 408 milliseconds. The AV Wenckebach cycle length was 540, retrogra de Wenckebach cycle length was 760 milliseconds. Concentric retrograde conduction seen. The ventric ular extrastimuli testing was performed. Ventricular ERP was measured at 600/240 with 2 ventricular extrastimuli were reliably inducing a ventricular tachycardia with a cycle length 440 milliseconds. It was right bundle-left axis morphology with initial Q-waves in lead 3 and AVR only concordance in t he anterior leads were seen. Clear VA dissociation was present proving to ventricular tachycardia. atrial pacing was also performed with a 240 milliseconds cycle length spacing and we were able to induce typical atrial flutter. This was sustained, morphology was typical atrial flutter. Post-p acing intervals were shorter by the CS os than by the lateral CS suggestive of right atrial flutter. Following that, the His/RVA catheter was exchanged for a [employer] SFST bidirectional catheter, whic h is at his right atrium and right atrial 3D map was obtained. During the atrial flutter, cavotricus pid isthmus ablation was performed, which terminated the atrial flutter. cavotricuspid isthmus block was demonstrated by proximal CS spacing with transisthmus times appear to be longest, adjacent to th e ablation line and shorter by the lateral right atrium suggestive of complete unilateral block. No induction of atrial flutter was achievable and the cavotricuspid isthmus block was persisting even af ter dopamine administration. Following that, the ventricular tachycardia was attempted to map from the right ventricle, no signifi cant scarring was seen in the right ventricle. Pace mapping did not completely match the ventricular tachycardia from right side. No ablation was performed from the RV. At the end of the case, the cardiac silhouette did not change. Pacemaker was re-interrogated and rev ealing adequately functioning single chamber Medtronic pacemaker with battery life over 10 year s and RV lead parameters sensing about 20 millivolts. No change from baseline. The ventricular tach ycardia detection zone was also left to be programmed at 450 milliseconds cycle length with adequate ATP and shock terminations was programmed as well. No recent ventricular tachyarrhythmia episodes ar e seen on the device. CONCLUSION: 1. Typical cavotricuspid-dependent atrial flutter was induced and successfully terminated with a cav otricuspid isthmus ablation. 2. Borderline sinus moshe function. 3. Easily inducible monomorphic ventricular tachycardia, which is relatively well tolerated hemodyna mically. Blood pressure 110. It was a right bundle-left axis morphology, and likely is not of right ventricular origin based on the RV voltage and pace map. PLAN: 1. At this point, continue ICD monitoring and with the current setting as described above. 2. For now, hold off from anticoagulation. Hence, no recent sustained atrial flutter was seen. 3. If recurrent ventricular tachyarrhythmia episodes occur, consider a left ventricular VT mapping a nd ablation.
== END ==
LOC: CCL 06:56
PROVIDERS: ATTEND Internal Medicine Cardiovascular Disease
PROC: 4A023FZ Measurement of Cardiac Rhythm, Percutaneous Approach (ICD-10-PCS; principal; 2017-09-29)
PROC: 4A0234Z Measurement of Cardiac Electrical Activity, Percutaneous Approach (ICD-10-PCS; 2017-09-29)
PROC: 02583ZZ Destruction of Conduction Mechanism, Percutaneous Approach (ICD-10-PCS; 2017-09-29)
DX: I47.2 Ventricular tachycardia (principal); I12.9 Hypertensive chronic kidney disease with stage 1 through stage 4 chronic kidney disease, or unspecified chronic kidney disease; E11.22 Type 2 diabetes mellitus with diabetic chronic kidney disease; N18.9 Chronic kidney disease, unspecified; I25.10 Atherosclerotic heart disease of native coronary artery without angina pectoris; F17.210 Nicotine dependence, cigarettes, uncomplicated; Z88.5 Allergy status to narcotic agent; Z91.018 Allergy to other foods; Z79.82 Long term (current) use of aspirin; Z79.899 Other long term (current) drug therapy; Z96.653 Presence of artificial knee joint, bilateral
CPT/HCPCS: 80053; 82962; 85025; 85610; 85730; 93005 ×2; 96374; C1730 ×3; C1769; 36416; 76942; 93010; 93613; 93623; 93653; J1265; J1644; J2001; J2250; J2704; J3010

== ENCOUNTER 2017-11-06 14:21 | Emergency (ER) | payer MEDICARE ==
[2017-11-06 15:09] LABS: #Basophils 0.1 thou/uL (0.0-0.2); #Eosinphils 0.3 thou/uL (0.0-0.7); #Lymphocytes 2.1 thou/uL (1.20-3.40); #Monocytes 0.5 thou/uL (0.11-0.59); #Neutrophils 6.1 thou/uL (1.40-6.50); %Basophils 0.8 % (0.0-1.0); %Eosinophils 3.8 % (0.0-10.0); %Monocytes 5.6 % (0.0-10.0); %Neutrophils 66.8 % (42.0-75.0); Hemoglobin 12.9 g/dL (14.0-18.0); Mean Corpuscular HGB CONC 33.8 g/dL (32.0-36.0); Mean Corpuscular Hemoglobin 29.9 pg (27.0-31.0); Mean Corpuscular Volume 88.3 fl (80.0-94.0); Mean Platelet Volume 8.8 fL (7.4-10.4); Platelet Count 206 thou/uL (130-400); RBC Distribution Width 12.6 % (11.5-14.5); Red Blood Cell (RBC) Count 4.31 mill/uL (4.70-6.10); White Blood Cell (WBC) Count 9.1 thou/uL (4.8-10.8)
[2017-11-06 15:32] LABS: ALT (SGPT) 14 U/L (8-55); AST (SGOT) 13 U/L (5-34); Albumin 3.7 g/dL (3.5-5.0); Alkaline Phosphatase 145 U/L (40-150); Anion Gap 13 mmol/L (10-20); BUN (Urea Nitrogen) 74 mg/dL (8.4-25.7); Bilirubin, Total 0.5 mg/dL (0.2-1.2); CK (CPK) 208 U/L (30-200); Calc. Creatinine Clearance 0 mL/min (70-130); Calcium 9.1 mg/dL (7.8-10.44); Carbon Dioxide 22 mmol/L (22-29); Chloride 100 mmol/L (98-107); Estimated GFR-MDRD 23; Globulin 3.1 g/dL (2.4-3.5); Glucose 317 mg/dL (70-105); Lipase 37 U/L (8-78); Potassium 5.5 mmol/L (3.5-5.1); Protein, Total 6.8 g/dL (6.0-8.3); Sodium 129 mmol/L (136-145)
[2017-11-06 15:35] LABS: CKMB 4.1 ng/mL (0-6.6); Troponin I Less than 0.010 ng/mL (< 0.028)
== END 2017-11-06 16:30 | disposition home or self-care (01) ==
LOC: ERS 14:21
DX: R53.1 Weakness (principal); E86.0 Dehydration; E11.40 Type 2 diabetes mellitus with diabetic neuropathy, unspecified; I10 Essential (primary) hypertension; Z87.891 Personal history of nicotine dependence; Z79.82 Long term (current) use of aspirin; Z79.899 Other long term (current) drug therapy; Z79.4 Long term (current) use of insulin
CPT/HCPCS: 36415; 80053; 82553; 83690; 84484; 85025; 93005; 96360

== ENCOUNTER 2017-11-22 17:17 | Emergency (ER) | payer MEDICARE ==
[2017-11-22 18:47] LABS: #Basophils 0.1 thou/uL (0.0-0.2); #Eosinphils 0.3 thou/uL (0.0-0.7); #Lymphocytes 3.3 thou/uL (1.20-3.40); #Monocytes 0.7 thou/uL (0.11-0.59); %Basophils 0.8 % (0.0-1.0); %Eosinophils 2.1 % (0.0-10.0); %Lymphocytes 24.6 % (21.0-51.0); %Monocytes 5.3 % (0.0-10.0); %Neutrophils 67.3 % (42.0-75.0); Hemoglobin 13.5 g/dL (14.0-18.0); Mean Corpuscular HGB CONC 35.5 g/dL (32.0-36.0); Mean Corpuscular Hemoglobin 31.3 pg (27.0-31.0); Mean Corpuscular Volume 88.2 fl (80.0-94.0); Mean Platelet Volume 8.1 fL (7.4-10.4); Platelet Count 287 thou/uL (130-400); RBC Distribution Width 12.7 % (11.5-14.5); White Blood Cell (WBC) Count 13.4 thou/uL (4.8-10.8)
[2017-11-22 19:08] LABS: ALT (SGPT) 19 U/L (8-55); AST (SGOT) 19 U/L (5-34); Albumin 3.6 g/dL (3.5-5.0); Alkaline Phosphatase 140 U/L (40-150); Anion Gap 15 mmol/L (10-20); BUN (Urea Nitrogen) 44 mg/dL (8.4-25.7); Bilirubin, Total 0.4 mg/dL (0.2-1.2); CK (CPK) 140 U/L (30-200); Calc. Creatinine Clearance 0 mL/min (70-130); Calcium 9.3 mg/dL (7.8-10.44); Carbon Dioxide 25 mmol/L (22-29); Chloride 99 mmol/L (98-107); Estimated GFR-MDRD 26; Globulin 3.6 g/dL (2.4-3.5); Glucose 164 mg/dL (70-105); Potassium 4.4 mmol/L (3.5-5.1); Protein, Total 7.2 g/dL (6.0-8.3); Sodium 135 mmol/L (136-145)
[2017-11-22 19:12] LABS: CKMB 4.6 ng/mL (0-6.6); Troponin I 0.024 ng/mL (< 0.028)
[2017-11-22] MEDS ORDERED: Acetaminophen 500 MG TAB ONE (19:26)
--- NOTE | 2017-11-22 19:30 | RAD ---
FRONTAL RADIOGRAPH CHEST PORTABLE UPRIGHT: 11/22/17 COMPARISON: 09/06/17 HISTORY: Hypotension and syncope. FINDINGS: Single lead transvenous pacing device noted. Midline sternotomy wires are present. Heart and mediasti nal contours are stable. No pneumothorax or pleural fluid. No focal consolidation or alveolar edema. IMPRESSION: Stable appearance of the chest - no acute findings. POS: [facility]
[2017-11-22 20:46] LABS: Bilirubin Negative (Negative); Blood, Urine Negative (Negative); Clarity CLEAR (Clear); Glucose, Urine (Dipstick) 500 mg/dL (Negative); Leukocyte Negative (Negative); Nitrite Negative (Negative); Protein, Urine (Dipstick) 30 mg/dL (Neg-Trace); Specific Gravity, Urine 1.026 (1.002-1.036); Urobilinogen 0.2 mg/dL (0.2-1.0)
[2017-11-22 20:48] LABS: Bacteria/HPF None Seen HPF (None Seen); Hyaline Casts/LPF 4-6 HYALINE CAST LPF (0-3 Hyaline); Pathc Cast-AUWi Flag 0.43 (0-2.49); RBC/HPF 0-3 HPF (0-3); Squamous Epithelial 0-3 HPF (0-3)
== END 2017-11-22 23:13 | disposition home or self-care (01) ==
LOC: ERS 17:17
DX: E86.0 Dehydration (principal); E11.40 Type 2 diabetes mellitus with diabetic neuropathy, unspecified; I10 Essential (primary) hypertension; I25.2 Old myocardial infarction; Z87.891 Personal history of nicotine dependence; Z79.82 Long term (current) use of aspirin; Z79.899 Other long term (current) drug therapy; Z79.4 Long term (current) use of insulin
CPT/HCPCS: 36415; 71045; 80053; 81003; 81015; 82550; 82553; 83605; 83880; 84484; 85025; 93005; 96360

== ENCOUNTER 2017-12-15 07:58 | Outpatient (CLI) | payer MEDICARE | END 2017-12-15 07:59 | disposition home or self-care (01) | LOC: BICULT 07:58 | PROVIDERS: ATTEND Internal Medicine Nephrology | DX: N18.3 Chronic kidney disease, stage 3 (moderate) (principal) | CPT/HCPCS: 76770 ==

== ENCOUNTER 2018-04-03 03:24 | Inpatient (IN) | payer MEDICARE ==
[2018-04-03] MEDS ORDERED: Insulin Regular 300 UNITS/3 ML VIAL ONE (04:14)
--- NOTE | 2018-04-03 05:37 | PDOC.FPRHP ---
- History of Present Illness Chief Complaint: Left shoulder pain History of Present Illness: 62M with extensive PMH who had a BCC removed from left shoulder by Plastic Surgery on Friday, 03/27. He had a f/u with Dr. Willson yesterday. At that time, surgeon felt the wound looked good and proceeded to remove the stitches. Patient started to feel extreme pain in shoulder earlier in the afternoon that progressed to severe pain, prompting his ER visit. Evaluated in [place] ED and given clindamycin, zosyn, and vanc. Pain is currently a 09/16. ED Course: clindamycin 900mg IV, Zosyn 2.25mg, Vancomycin 2 G, NS 2 L, fentanyl 50 mcg, zofran 4 mg - Allergies/Adverse Reactions Allergies Allergy/AdvReac Type Severity Reaction Status Date / Time amlodipine Allergy Verified 09/26/17 10:00 duloxetine [From Cymbalta] Allergy Verified 09/26/17 10:00 morphine Allergy Nausea Verified 09/26/17 10:00 orange Allergy Verified 09/26/17 10:00 orange flavor Allergy Verified 09/26/17 10:00 orange juice [[place]os[place] Juice] Allergy Verified 09/26/17 10:00 varenicline [From Chantix] Allergy Verified 09/26/17 10:00 - Home Medications Medication Instructions Recorded Confirmed Type Lisinopril 40 mg PO HS 08/02/13 04/03/18 History Levemir Flexpen [Levemir FlexPen] 24 unit SC BID-WM 05/20/17 04/03/18 History Atorvastatin Calcium [Lipitor] 10 mg PO HS 07/16/17 04/03/18 History Pregabalin [Lyrica] 100 mg PO TID 07/16/17 04/03/18 History Metoprolol Tartrate 50 mg PO BID #60 tablet 09/09/17 04/03/18 Rx Furosemide [Lasix] 40 mg PO QAM 09/26/17 04/03/18 History Aspirin [Ecotrin] 81 mg PO DAILY 04/03/18 04/03/18 History - History PMHx: recurrent v-tach s/p ablations and ICD placement, CAD s/p stent and CABG, PVF, HFrEF, DMII, HTN, CKD, tobacco abuse PSHx: CABG, AICD placement, extensive orthopedic back, knee, and wrist surgeries , bilateral great toe amputations FHx:NC Social: NC - Review of Systems General: denies: fever/chills, fatigue ENT: denies: nasal congestion, rhinorrhea Respiratory: denies: cough, congestion, shortness of breath Cardiovascular: denies: chest pain, palpitation Gastrointestinal: reports: nausea. denies: vomiting, diarrhea Genitourinary: denies: dysuria, polyuria Skin: reports: lesions Musculoskeletal: reports: pain Neurological: reports: numbness - Vital signs BP: 104/53 HR: 63 RR: 16 Tmax: 98.4F Pox: 98% on RA Wt: 122kg - Physical Exam Constitutional: awake, alert and oriented -Constitutional: moderate pain and discomfort HEENT: normocephalic and atraumatic Neck: supple, trachea midline Chest: no-tender to palpation Heart: RRR, normal S1/S2 Lungs: CTAB, no respiratory distress Abdomen: soft, non-tender Neurological: no focal deficit, CN II-XII intact -Skin: 11 cm incision over anterior deltoid with purulent drainage and extensive surrounding erythema Heme/Lymphatic: no unusual bruising or bleeding Psychiatric: normal mood and affect, good judgment and insight FMR H&P: Results - EKG Interpretation EKG: no change from prior ekg's; rate of 69; large q waves; inverted/flattened t waves FMR H&P: A/P - Problem List (1) Wound infection after surgery Current Visit: Yes Status: Acute Code(s): T81.49XA - INFECTION FOLLOWING A PROCEDURE, OTHER SURGICAL SITE, INIT Assessment and Plan: -wound appears dehisced with purulent drainage but not septic at this time -given broad spectrum abx at outside facility with no wound culture -continue vanc and zosyn with pharmacy to dose vanc due to poor creatinine clearance -repeat lactic acid -wound care consulted -consult plastic surgery in the AM (2) Hyperglycemia due to type 2 diabetes mellitus Current Visit: Yes Status: Acute Code(s): E11.65 - TYPE 2 DIABETES MELLITUS WITH HYPERGLYCEMIA Assessment and Plan: -not addressed at outside ER -give 10u humalog now with accucheck s/p 30m after administration -aggressive SSI -accuchecks qACHS -continue home insulin regimen (3) CAD (coronary artery disease) Current Visit: No Status: Chronic Code(s): I25.10 - ATHSCL HEART DISEASE OF [place] CORONARY ARTERY W/O ANG PCTRS Comment: s/p RCA stent 2008 and CABG 2014 Assessment and Plan: -no active chest pain -continue home medications (4) Chronic systolic heart failure Current Visit: No Status: Chronic Code(s): I50.22 - CHRONIC SYSTOLIC ( CONGESTIVE) HEART FAILURE Assessment and Plan: -no s/s of volume overload -continue home meds (5) HTN (hypertension) Current Visit: No Status: Chronic Code(s): I10 - ESSENTIAL (PRIMARY) HYPERTENSION Qualifiers: Hypertension type: essential hypertension Qualified Code(s): I10 - Essential (primary) hypertension Assessment and Plan: -BP appropriate -continue home meds (6) Coronary artery disease Current Visit: No Status: Chronic Code(s): I25.10 - ATHSCL HEART DISEASE OF [place] CORONARY ARTERY W/O ANG PCTRS (7) DM type 2 (diabetes mellitus, type 2) Current Visit: No Status: Chronic Comment: on Insulin (8) PVD (peripheral vascular disease) Current Visit: Yes Status: Acute Code(s): I73.9 - PERIPHERAL VASCULAR DISEASE, UNSPECIFIED FMR H&P: Upper Level - Plan Date/Time: 04/03/18 0531 Attending Addendum - Attending Addendum Date/Time: 04/03/18 8189 I personally evaluated the patient and discussed the management with Dr. Carl. I agree with the History, Examination, Assessment and Plan documented above with any addition or exceptions noted below. Patient here with obvious soft tissue injection and surgical site dehiscence with purulent discharge. Will obtain cultures of the wound. Continue on antibiotic therapy and work to gain pain control. Will consult his plastic surgeon but patient desires to not have any interactions with Dr. Willson. Will consult wound care team. Anticipate will need several days of hospitalization on IV abx and wound care.
[2018-04-03] MEDS ORDERED: Dextrose 5% in Water 1,000 ML IV PRN (06:13)
[2018-04-03] MEDS ORDERED: Dextrose 50% Abboject 50 ML SYRINGE SLOW IVP PRN (06:13)
[2018-04-03] MEDS ORDERED: Ondansetron ODT 4 MG TAB PO PRN (06:13)
[2018-04-03] MEDS ORDERED: HumaLOG 300 UNITS/3 ML VIAL SC PRN ×2 (06:13)
[2018-04-03] MEDS ORDERED: Acetaminophen 325 MG TAB PO PRN (06:13)
[2018-04-03 06:29] VITALS: BMI 34.9
[2018-04-03] MEDS ORDERED: HumaLOG 300 UNITS/3 ML VIAL SC SCH ×2 (06:30→09:45)
[2018-04-03] MEDS: Sodium Chloride 0.9% 1,000 ML IV SCH ×2 (06:31→15:04)
[2018-04-03] MEDS ORDERED: Acetaminophen 1,000 MG in Premix Bag 1 BAG IVPB PRN (07:09)
[2018-04-03 07:14] LABS: Lactic Acid 1.4 mmol/L (0.5-2.2)
[2018-04-03] MEDS ORDERED: LEVEMIR 24 UNIT SC SCH (08:00)
[2018-04-03] MEDS ORDERED: Enoxaparin Sodium 40 MG/0.4 ML SYRINGE SC SCH (09:00)
[2018-04-03] MEDS ORDERED: Furosemide 20 MG TAB PO SCH (09:00)
[2018-04-03] MEDS ORDERED: Non-Formulary Item 1 EACH (Pregabalin [Lyrica] 100 MG) PO SCH (09:00)
[2018-04-03] MEDS: Furosemide 40 MG TAB PO SCH (09:46)
[2018-04-03] MEDS: Piperacillin/Tazobactam 2.25 GM in Sodium Chloride 0.9% 100 ML IVPB SCH ×2 (09:46→17:06)
[2018-04-03] MEDS: Pregabalin 50 MG CAP PO SCH ×3 (09:47→20:35)
[2018-04-03] MEDS: Fentanyl 100 MCG/2 ML VIAL SLOW IVP PRN ×3 (09:47→21:35)
[2018-04-03] MEDS: Metoprolol Tartrate 50 MG TAB PO SCH ×2 (09:48→20:34)
[2018-04-03] MEDS: Aspirin 81 mg Enteric Coated Tablet PO SCH (09:48)
[2018-04-03] MEDS: Insulin Glargine 24 UNITS in Pre-Filled Syringe 1 EACH SC SCH ×2 (09:50→17:06)
[2018-04-03] MEDS: HumaLOG 300 UNITS/3 ML VIAL SC PRN ×2 (15:04→17:07)
[2018-04-03 17:01] LABS: Hemoglobin A1c 15.4 % (4.0-6.0)
[2018-04-03] MEDS: traMADol HCl 50 MG TAB PO PRN (20:33)
[2018-04-03] MEDS: Atorvastatin Calcium 10 MG TAB PO SCH (20:34)
[2018-04-03] MEDS: Lisinopril 20 MG TAB PO SCH (20:35)
[2018-04-03] MEDS ORDERED: Lisinopril 5 MG TAB PO SCH (21:00)
[2018-04-04] MEDS: Piperacillin/Tazobactam 2.25 GM in Sodium Chloride 0.9% 100 ML IVPB SCH ×3 (02:08→17:35)
[2018-04-04] MEDS: Vancomycin HCl 1.5 GM in Sodium Chloride 0.9% 250 ML 300 ML IVPB SCH (03:09)
[2018-04-04] MEDS: Fentanyl 100 MCG/2 ML VIAL SLOW IVP PRN ×4 (03:20→21:31)
[2018-04-04 05:01] LABS: #Basophils 0.1 thou/uL (0.0-0.2); #Eosinphils 0.4 thou/uL (0.0-0.7); #Monocytes 0.7 thou/uL (0.11-0.59); #Neutrophils 7.6 thou/uL (1.40-6.50); %Basophils 0.5 % (0.0-1.0); %Lymphocytes 18.7 % (21.0-51.0); %Neutrophils 70.8 % (42.0-75.0); Hemoglobin 12.7 g/dL (14.0-18.0); Mean Corpuscular HGB CONC 32.9 g/dL (32.0-36.0); Mean Corpuscular Hemoglobin 30.1 pg (27.0-31.0); Mean Corpuscular Volume 91.3 fL (78.0-98.0); Mean Platelet Volume 8.8 fL (7.4-10.4); Platelet Count 256 thou/uL (130-400); RBC Distribution Width 12.3 % (11.5-14.5); Red Blood Cell (RBC) Count 4.22 mill/uL (4.70-6.10); White Blood Cell (WBC) Count 10.7 thou/uL (4.8-10.8)
[2018-04-04 05:06] LABS: Anion Gap 12 mmol/L (10-20); BUN (Urea Nitrogen) 30 mg/dL (8.4-25.7); Calc. Creatinine Clearance 75 mL/min (70-130); Calcium 8.7 mg/dL (7.8-10.44); Carbon Dioxide 22 mmol/L (22-29); Chloride 105 mmol/L (98-107); Estimated GFR-MDRD 39; Glucose 219 mg/dL (70-105); Potassium 3.9 mmol/L (3.5-5.1); Sodium 135 mmol/L (136-145)
[2018-04-04] MEDS: HumaLOG 300 UNITS/3 ML VIAL SC PRN ×4 (05:44→21:14)
--- NOTE | 2018-04-04 06:27 | PDOC.FM ---
- Subjective Subjective: Mr. Miramontes is sitting up in bed complaining about fluid restrictions and lack of pain control. The pain is not new, and related to his surgical site, he reports tramadol q6 at home, that the fentanyl doesnt work, and he has something with his knee surgery that did. They told him yesterday that he is on fluid restrictions and could not have any more liquid, which was very upsetting. He has a history of HFrEF - Objective Vital Signs & Weight: Vital Signs (12 hours) Temp Pulse Resp BP Pulse Ox 04/04/18 04:41 98.2 F 59 L 18 118/71 93 L 04/04/18 00:14 98.2 F 56 L 16 103/63 92 L 04/03/18 19:45 97.9 F 60 18 130/80 94 L Weight Admit Weight 120.202 kg Weight 120.315 kg I&O: 04/02/18 04/03/18 04/04/18 06:59 06:59 06:59 Intake Total 240 Balance 240 Result Diagrams: 04/04/18 04:08 04/04/18 04:08 <Cabrera Fritz - Last Filed: 04/04/18 09:37> - Objective Vital Signs & Weight: Vital Signs (12 hours) Temp Pulse Resp BP Pulse Ox 04/04/18 08:00 95 04/04/18 07:27 98.5 F 63 20 173/69 H 96 04/04/18 04:41 98.2 F 59 L 18 118/71 93 L 04/04/18 00:14 98.2 F 56 L 16 103/63 92 L Weight Admit Weight 120.202 kg Weight 120.315 kg I&O: 04/03/18 04/04/18 04/05/18 06:59 06:59 06:59 Intake Total 240 Balance 240 Result Diagrams: 04/04/18 04:08 04/04/18 04:08 <Max Zamora - Last Filed: 04/04/18 10:20> Phys Exam - Physical Examination Constitutional: NAD Neck: no nodes Respiratory: no wheezing, no rales, no rhonchi, clear to auscultation bilateral Cardiovascular: RRR, no significant murmur, no rub Gastrointestinal: soft, non-tender, no distention Musculoskeletal: no edema Psychiatric: normal affect Deviation from normal: dressing c/d/i, surrounding erythema improved <Cabrera Fritz - Last Filed: 04/04/18 09:37> Dx/Plan (1) Wound infection after surgery Code(s): T81.49XA - INFECTION FOLLOWING A PROCEDURE, OTHER SURGICAL SITE, INIT Status: Acute (2) Hyperglycemia due to type 2 diabetes mellitus Code(s): E11.65 - TYPE 2 DIABETES MELLITUS WITH HYPERGLYCEMIA Status: Acute (3) HTN (hypertension) Code(s): I10 - ESSENTIAL (PRIMARY) HYPERTENSION Status: Chronic Qualifiers: Hypertension type: essential hypertension Qualified Code(s): I10 - Essential (primary) hypertension - Plan Plan: Wound dehiscence s/p surgery -wound with purulent drainage but not septic at this time -given broad spectrum abx at outside facility with no wound culture -continue vanc and zosyn with pharmacy to dose vanc due to poor creatinine clearance -repeat lactic acid -wound care consulted -plastic surgery recs to continue IV abx until sensitivities result, DC on PO abx -improved pain control, switch tram to q6hr, consider DC fentanyl and changing to another opioid analgesic for breakthrough pain DMII, uncontrolled. now improved -aggressive SSI -accuchecks qACHS -continue home insulin regimen CAD - no active chest pain at this time - continue to monitor Systolic heart failure - avoid fluid overload - continue home meds HTN - controlled at this time, continue to monitor - continue home meds\ Code: full ppx: lovenox Dispo: await culture senstivities then DC on PO abx <Cabrera Fritz - Last Filed: 04/04/18 09:37> (1) Wound infection after surgery Code(s): T81.49XA - INFECTION FOLLOWING A PROCEDURE, OTHER SURGICAL SITE, INIT Status: Acute (2) Hyperglycemia due to type 2 diabetes mellitus Code(s): E11.65 - TYPE 2 DIABETES MELLITUS WITH HYPERGLYCEMIA Status: Acute (3) CAD (coronary artery disease) Code(s): I25.10 - ATHSCL HEART DISEASE OF [place] CORONARY ARTERY W/O ANG PCTRS Status: Chronic (4) Chronic systolic heart failure Code(s): I50.22 - CHRONIC SYSTOLIC (CONGESTIVE) HEART FAILURE Status: Chronic (5) HTN (hypertension) Code(s): I10 - ESSENTIAL (PRIMARY) HYPERTENSION Status: Chronic Qualifiers: Hypertension type: essential hypertension Qualified Code(s): I10 - Essential (primary) hypertension (6) Coronary artery disease Code(s): I25.10 - ATHSCL HEART DISEASE OF [place] CORONARY ARTERY W/O ANG PCTRS Status: Chronic (7) DM type 2 (diabetes mellitus, type 2) Status: Chronic (8) PVD (peripheral vascular disease) Code(s): I73.9 - PERIPHERAL VASCULAR DISEASE, UNSPECIFIED Status: Acute <Max Zamora - Last Filed: 04/04/18 10:20> Attending Addendum - Attending Addendum Date/Time: 04/04/18 1019 I personally evaluated the patient and discussed the management with Dr. Fritz. I agree with the History, Examination, Assessment and Plan documented above with any addition or exceptions noted below. Patient with with cellulitis, surgical wound dehiscence and infection. Continue broad spectrum antibiotics and wound care. Cultures pending. Will work to get improved pain control today. Increase insulin to better glycemic control for improved wound healing. Renal function stable. <Max Zamora - Last Filed: 04/04/18 10:20>
[2018-04-04] MEDS: Aspirin 81 mg Enteric Coated Tablet PO SCH (08:02)
[2018-04-04] MEDS: Metoprolol Tartrate 50 MG TAB PO SCH ×2 (08:02→21:12)
[2018-04-04] MEDS: Furosemide 40 MG TAB PO SCH (08:02)
[2018-04-04] MEDS: Pregabalin 50 MG CAP PO SCH ×3 (08:03→21:12)
[2018-04-04] MEDS: traMADol HCl 50 MG TAB PO PRN (08:05)
[2018-04-04] MEDS: Insulin Glargine 24 UNITS in Pre-Filled Syringe 1 EACH SC SCH (08:06)
[2018-04-04] MEDS: Heparin 5,000 UNITS/ML VIAL SC SCH ×3 (08:08→20:49)
[2018-04-04] MEDS: HYDROcodone/Acetaminophen 10/325 mg Tablet PO SCH ×2 (11:01→17:35)
[2018-04-04] MEDS: Insulin Glargine 28 UNITS in Pre-Filled Syringe 1 EACH SC SCH (17:34)
[2018-04-04] MEDS: Lisinopril 20 MG TAB PO SCH (21:12)
[2018-04-04] MEDS: Atorvastatin Calcium 10 MG TAB PO SCH (21:12)
[2018-04-05] MEDS: HYDROcodone/Acetaminophen 10/325 mg Tablet PO SCH ×4 (00:14→17:24)
[2018-04-05 01:43] LABS: Vancomycin, Trough 13.7 ug/mL
[2018-04-05] MEDS: Piperacillin/Tazobactam 2.25 GM in Sodium Chloride 0.9% 100 ML IVPB SCH ×2 (02:26→10:50)
[2018-04-05] MEDS: Vancomycin HCl 1.5 GM in Sodium Chloride 0.9% 250 ML 300 ML IVPB SCH (02:26)
--- NOTE | 2018-04-05 06:25 | PDOC.FM ---
- Subjective Subjective: Mr. Miramontes is resting comfortably in bed, he is complaining that his diet is low protein. His pain is better controlled and he has no other concerns - Objective Vital Signs & Weight: Vital Signs (12 hours) Temp Pulse Resp BP Pulse Ox 04/04/18 20:00 98.4 F 53 L 16 129/75 95 Weight Admit Weight 120.202 kg Weight 120.315 kg I&O: 04/03/18 04/04/18 04/05/18 06:59 06:59 06:59 Intake Total 240 1989 Balance 240 1989 Result Diagrams: 04/05/18 05:54 04/05/18 05:54 <Cabrera Fritz - Last Filed: 04/05/18 09:52> - Objective Vital Signs & Weight: Vital Signs (12 hours) Temp Pulse Resp BP Pulse Ox 04/05/18 07:40 97.9 F 53 L 16 137/78 96 Weight Admit Weight 120.202 kg Weight 120.315 kg I&O: 04/04/18 04/05/18 04/06/18 06:59 06:59 06:59 Intake Total 240 1989 Balance 240 1989 Result Diagrams: 04/05/18 05:54 04/05/18 05:54 <Max Zamora - Last Filed: 04/05/18 10:18> Phys Exam - Physical Examination Constitutional: NAD HEENT: moist MMs Respiratory: no wheezing, no rales, no rhonchi, clear to auscultation bilateral Cardiovascular: RRR, no significant murmur, no rub Gastrointestinal: soft, non-tender Musculoskeletal: no edema Neurological: moves all 4 limbs <Cabrera Fritz - Last Filed: 04/05/18 09:52> Dx/Plan (1) Wound infection after surgery Code(s): T81.49XA - INFECTION FOLLOWING A PROCEDURE, OTHER SURGICAL SITE, INIT Status: Acute (2) Hyperglycemia due to type 2 diabetes mellitus Code(s): E11.65 - TYPE 2 DIABETES MELLITUS WITH HYPERGLYCEMIA Status: Acute (3) HTN (hypertension) Code(s): I10 - ESSENTIAL (PRIMARY) HYPERTENSION Status: Chronic Qualifiers: Hypertension type: essential hypertension Qualified Code(s): I10 - Essential (primary) hypertension - Plan Plan: Wound dehiscence s/p surgery -wound with purulent drainage but not septic at this time -given broad spectrum abx at outside facility with no wound culture -continue vanc with pharmacy to dose vanc due to poor creatinine clearance -DC zosyn per staph culture -wound care consulted -plastic surgery recs to continue IV abx until sensitivities result, DC on PO abx -improved pain control, tramadol q6hr for breakthrough, norco 10 scheduled, fentanyl for breakthrough L arm swelling - most likely edema from wound - at risk for thrombosis, will order venous US DMII, uncontrolled. now improved -aggressive SSI -accuchecks qACHS -increased basal insulin to 28units CAD - no active chest pain at this time - continue to monitor Systolic heart failure - avoid fluid overload - continue home meds HTN - controlled at this time, continue to monitor - continue home meds Code: full ppx: lovenox Dispo: await culture senstivities then DC on PO abx <Cabrera Fritz - Last Filed: 04/05/18 09:52> (1) Wound infection after surgery Code(s): T81.49XA - INFECTION FOLLOWING A PROCEDURE, OTHER SURGICAL SITE, INIT Status: Acute (2) Hyperglycemia due to type 2 diabetes mellitus Code(s): E11.65 - TYPE 2 DIABETES MELLITUS WITH HYPERGLYCEMIA Status: Acute (3) CAD (coronary artery disease) Code(s): I25.10 - ATHSCL HEART DISEASE OF [place] CORONARY ARTERY W/O ANG PCTRS Status: Chronic (4) Chronic systolic heart failure Code(s): I50.22 - CHRONIC SYSTOLIC (CONGESTIVE) HEART FAILURE Status: Chronic (5) HTN (hypertension) Code(s): I10 - ESSENTIAL (PRIMARY) HYPERTENSION Status: Chronic Qualifiers: Hypertension type: essential hypertension Qualified Code(s): I10 - Essential (primary) hypertension (6) Coronary artery disease Code(s): I25.10 - ATHSCL HEART DISEASE OF [place] CORONARY ARTERY W/O ANG PCTRS Status: Chronic (7) DM type 2 (diabetes mellitus, type 2) Status: Chronic (8) PVD (peripheral vascular disease) Code(s): I73.9 - PERIPHERAL VASCULAR DISEASE, UNSPECIFIED Status: Acute <Max Zamora - Last Filed: 04/05/18 10:18> Attending Addendum - Attending Addendum Date/Time: 04/05/18 1018 I personally evaluated the patient and discussed the management with Dr. Fritz. I agree with the History, Examination, Assessment and Plan documented above with any addition or exceptions noted below. Patient stable. Wound cultures resulting, will de-escalate therapy and discontinue Zosyn. Continue wound care and antibiotics. Improve glycemic control to promote healing. Pain control as needed. <Max Zamora - Last Filed: 04/05/18 10:18>
[2018-04-05 06:40] LABS: #Basophils 0.1 thou/uL (0.0-0.2); #Eosinphils 0.5 thou/uL (0.0-0.7); #Lymphocytes 2.3 thou/uL (1.20-3.40); #Monocytes 0.5 thou/uL (0.11-0.59); #Neutrophils 4.3 thou/uL (1.40-6.50); %Basophils 0.7 % (0.0-1.0); %Eosinophils 6.6 % (0.0-10.0); %Lymphocytes 30.2 % (21.0-51.0); %Monocytes 6.9 % (0.0-10.0); %Neutrophils 55.5 % (42.0-75.0); Hemoglobin 12.4 g/dL (14.0-18.0); Mean Corpuscular HGB CONC 31.4 g/dL (32.0-36.0); Mean Corpuscular Hemoglobin 29.3 pg (27.0-31.0); Mean Corpuscular Volume 93.1 fL (78.0-98.0); Mean Platelet Volume 8.6 fL (7.4-10.4); Platelet Count 248 thou/uL (130-400); RBC Distribution Width 12.4 % (11.5-14.5); Red Blood Cell (RBC) Count 4.23 mill/uL (4.70-6.10); White Blood Cell (WBC) Count 7.7 thou/uL (4.8-10.8)
[2018-04-05 07:01] LABS: Anion Gap 12 mmol/L (10-20); BUN (Urea Nitrogen) 26 mg/dL (8.4-25.7); Calc. Creatinine Clearance 84 mL/min (70-130); Calcium 8.9 mg/dL (7.8-10.44); Carbon Dioxide 22 mmol/L (22-29); Chloride 106 mmol/L (98-107); Estimated GFR-MDRD 45; Glucose 127 mg/dL (70-105); Potassium 3.9 mmol/L (3.5-5.1); Sodium 136 mmol/L (136-145)
[2018-04-05] MEDS: Insulin Glargine 28 UNITS in Pre-Filled Syringe 1 EACH SC SCH ×2 (08:32→17:28)
[2018-04-05] MEDS: Pregabalin 50 MG CAP PO SCH ×3 (08:35→21:03)
[2018-04-05] MEDS: Aspirin 81 mg Enteric Coated Tablet PO SCH (08:35)
[2018-04-05] MEDS: Metoprolol Tartrate 50 MG TAB PO SCH ×2 (08:35→21:04)
[2018-04-05] MEDS: Furosemide 40 MG TAB PO SCH (08:35)
[2018-04-05] MEDS: Fentanyl 100 MCG/2 ML VIAL SLOW IVP PRN ×3 (08:36→21:05)
[2018-04-05] MEDS: Heparin 5,000 UNITS/ML VIAL SC SCH ×3 (08:37→21:04)
[2018-04-05] MEDS: HumaLOG 300 UNITS/3 ML VIAL SC PRN ×3 (12:17→21:08)
--- NOTE | 2018-04-05 13:37 | ULT ---
LEFT UPPER EXTREMITY VENOUS DUPLEX EXAM: Date: 04/05/18 INDICATION: Left upper extremity edema. FINDINGS: The left internal jugular vein shows normal flow and compression. The left subclavian vein demonstrat es normal flow with Doppler. Left axillary vein, brachial vein, basilic vein, and cephalic vein all show normal flow and compressi on. Below the elbow, the radial and ulnar veins are identified and show normal flow and compression. IMPRESSION: Negative left upper extremity venous duplex exam. POS: [facility]
[2018-04-05] MEDS ORDERED: Milk Of Magnesia 30 ML UDCUP PO PRN (18:09)
[2018-04-05] MEDS: Lisinopril 20 MG TAB PO SCH (21:02)
[2018-04-05] MEDS: Atorvastatin Calcium 10 MG TAB PO SCH (21:04)
[2018-04-06] MEDS: HYDROcodone/Acetaminophen 10/325 mg Tablet PO SCH ×5 (00:09→23:59)
[2018-04-06] MEDS: Fentanyl 100 MCG/2 ML VIAL SLOW IVP PRN (02:53)
[2018-04-06] MEDS: Vancomycin HCl 1.5 GM in Sodium Chloride 0.9% 250 ML 300 ML IVPB SCH (02:53)
[2018-04-06 05:41] LABS: #Basophils 0.1 thou/uL (0.0-0.2); #Eosinphils 0.3 thou/uL (0.0-0.7); #Lymphocytes 2.3 thou/uL (1.20-3.40); #Monocytes 0.6 thou/uL (0.11-0.59); #Neutrophils 4.4 thou/uL (1.40-6.50); %Basophils 1.1 % (0.0-1.0); %Eosinophils 4.2 % (0.0-10.0); %Lymphocytes 29.8 % (21.0-51.0); %Monocytes 7.5 % (0.0-10.0); %Neutrophils 57.3 % (42.0-75.0); Hemoglobin 11.9 g/dL (14.0-18.0); Mean Corpuscular HGB CONC 31.5 g/dL (32.0-36.0); Mean Corpuscular Hemoglobin 29.1 pg (27.0-31.0); Mean Corpuscular Volume 92.4 fL (78.0-98.0); Mean Platelet Volume 8.6 fL (7.4-10.4); Platelet Count 293 thou/uL (130-400); RBC Distribution Width 12.3 % (11.5-14.5); Red Blood Cell (RBC) Count 4.07 mill/uL (4.70-6.10); White Blood Cell (WBC) Count 7.7 thou/uL (4.8-10.8)
[2018-04-06 05:48] LABS: Anion Gap 12 mmol/L (10-20); BUN (Urea Nitrogen) 25 mg/dL (8.4-25.7); Calc. Creatinine Clearance 87 mL/min (70-130); Calcium 9.1 mg/dL (7.8-10.44); Carbon Dioxide 25 mmol/L (22-29); Chloride 103 mmol/L (98-107); Estimated GFR-MDRD 46; Glucose 240 mg/dL (70-105); Sodium 136 mmol/L (136-145)
[2018-04-06] MEDS: HumaLOG 300 UNITS/3 ML VIAL SC PRN (05:49)
--- NOTE | 2018-04-06 05:58 | PDOC.FM ---
- Subjective Subjective: NAEO. Patient states he pain is well-controlled this AM. Says he had a BM last night. Reports that his LUE edema is about the same compared to yesterday. Has no complaints this AM. - Objective MAR Reviewed: Yes Vital Signs & Weight: Vital Signs (12 hours) Temp Pulse Resp BP BP Pulse Ox 04/05/18 21:02 135/70 04/05/18 20:00 98.6 F 57 L 16 135/70 95 Weight Admit Weight 120.202 kg Weight 120.315 kg I&O: 04/04/18 04/05/18 04/06/18 06:59 06:59 06:59 Intake Total 240 1989 1410 Balance 240 1989 141 Result Diagrams: 04/06/18 04:49 04/06/18 04:49 <Carolyn Spaulding - Last Filed: 04/06/18 08:45> - Objective Vital Signs & Weight: Vital Signs (12 hours) Temp Pulse Resp BP BP Pulse Ox 04/07/18 07:24 98.1 F 57 L 18 184/79 H 94 L 04/06/18 20:22 143/67 H Weight Admit Weight 120.202 kg Weight 120.315 kg I&O: 04/06/18 04/07/18 04/08/18 06:59 06:59 06:59 Intake Total 1410 1080 Balance 1410 1080 Result Diagrams: 04/07/18 04:34 04/07/18 04:34 <Donnell Kelsey - Last Filed: 04/07/18 08:22> Phys Exam - Physical Examination Constitutional: NAD HEENT: moist MMs Neck: supple, full ROM Respiratory: no wheezing, no rales, no rhonchi, clear to auscultation bilateral Cardiovascular: RRR, no significant murmur Gastrointestinal: soft, non-tender, no distention, positive bowel sounds Musculoskeletal: pulses present, edema present Diffuse edema in LUE Neurological: non-focal, normal sensation, moves all 4 limbs Psychiatric: normal affect, A&O x 3 Skin: normal turgor, cap refill <2 seconds Deviation from normal: L shoulder covered with clean, dry, and intact dressing. -: Significant improvement in surrounding erythema compared to 04/03 <Carolyn Spaulding - Last Filed: 04/06/18 08:45> Dx/Plan (1) Cellulitis Code(s): L03.90 - CELLULITIS, UNSPECIFIED Status: Acute Qualifiers: Site of cellulitis: extremity Site of cellulitis of extremity: upper extremity Laterality: left Qualified Code(s): L03.114 - Cellulitis of left upper limb (2) Hyperglycemia due to type 2 diabetes mellitus Code(s): E11.65 - TYPE 2 DIABETES MELLITUS WITH HYPERGLYCEMIA Status: Acute (3) PVD (peripheral vascular disease) Code(s): I73.9 - PERIPHERAL VASCULAR DISEASE, UNSPECIFIED Status: Acute (4) Wound infection after surgery Code(s): T81.49XA - INFECTION FOLLOWING A PROCEDURE, OTHER SURGICAL SITE, INIT Status: Acute (5) CAD (coronary artery disease) Code(s): I25.10 - ATHSCL HEART DISEASE OF [place] CORONARY ARTERY W/O ANG PCTRS Status: Chronic (6) Chronic systolic heart failure Code(s): I50.22 - CHRONIC SYSTOLIC (CONGESTIVE) HEART FAILURE Status: Chronic (7) DM type 2 (diabetes mellitus, type 2) Status: Chronic (8) HTN (hypertension) Code(s): I10 - ESSENTIAL (PRIMARY) HYPERTENSION Status: Chronic Qualifiers: Hypertension type: essential hypertension Qualified Code(s): I10 - Essential (primary) hypertension - Plan Plan: Wound infection s/p surgery - Wound with purulent drainage but not septic at this time. - Will continue IV vanc until sensitivities results per plastic surgery recs. Will have pharmacy continue to dose due to poor creatinine clearance. - Wound care on board, appreciate recs. - Improved pain control with tramadol q6hr for breakthrough & norco 10 scheduled and fentanyl for breakthrough if not able to tolerate PO. Will consider descalating fentanyl today as patient will not be able to go home on this and needs to be well-controlled on PO only pain meds. L arm swelling - Most likely edema from wound. - Venous U/S negative for a DVT. - Will continue DVT PPx w/ Heparin. DMII, uncontrolled. - A1c in hospital 15.4. - Will continue aggressive SSI & consider further increasing basal insulin dose slightly from 28 units to maintain BG levels <300. Required 11 units of SSI around 21:00 yesterday despite increasing basal dose. - Will continue accuchecks ACHS. CAD - Aware, no active chest pain at this time. - Will continue home meds. HFrEF - Aware, not in acute exacerbation. - Will continue fluid overload - Will continue home meds. HTN - Well controlled at this time. - Will continue home meds. Code: full ppx: Heparin Abx: Vancomycin IVFs: None Dispo: Awaiting culture sensitivities. Once back will DC on PO abx w/ HH wound care per patient's request. <Carolyn Spaulding - Last Filed: 04/06/18 08:45> Attending Addendum - Attending Addendum Date/Time: 04/07/18820 I personally evaluated the patient and discussed the management with Dr. Spaulding yesterday morning. I agree with the History, Examination, Assessment and Plan documented above with any addition or exceptions noted below. As infection is resolving, we will deescalate his opiates. He was not pleased with this plan. <Donnell Kelsey - Last Filed: 04/07/18 08:22>
[2018-04-06] MEDS: Metoprolol Tartrate 50 MG TAB PO SCH ×2 (07:36→20:23)
[2018-04-06] MEDS: Insulin Glargine 28 UNITS in Pre-Filled Syringe 1 EACH SC SCH (07:36)
[2018-04-06] MEDS: Furosemide 40 MG TAB PO SCH (07:36)
[2018-04-06] MEDS: Pregabalin 50 MG CAP PO SCH ×3 (07:37→20:22)
[2018-04-06] MEDS: Aspirin 81 mg Enteric Coated Tablet PO SCH (07:37)
[2018-04-06] MEDS: Heparin 5,000 UNITS/ML VIAL SC SCH ×3 (07:37→20:27)
[2018-04-06] MEDS: Senokot S 8.6-50 MG TAB PO SCH ×2 (07:47→20:23)
[2018-04-06] MEDS ORDERED: Polyethylene Glycol 3350 17 GM Packet PO SCH (09:00)
[2018-04-06] MEDS ORDERED: Insulin Glargine 33 UNITS in Pre-Filled Syringe 1 EACH SC SCH ×2 (09:14→09:30)
--- NOTE | 2018-04-06 09:47 | PQF ---
CLINICAL DOCUMENTATION IMPROVEMENT CLARIFICATION FORM: ICD-10 Updated PLEASE DO AN ADDENDUM TO THE PROGRESS NOTE WITH ANY DOCUMENTATION UPDATES OR ADDITIONS AND CARRY THROUGH TO DC SUMMARY. THANK YOU. DATE: 04/06 ATTN : DR. KENAN GIL / DR. Kareen DALLAS Please exercise your independent, professional judgment in responding to the clarification form. Clinical indicators are provided on the bottom of this form for your review Please check appropriate box(s): [ ] Acute Renal Failure (ARF) / Acute Kidney Injury (MUSHTAQ) [ ] Other Etiology or underlying conditions related to the diagnosis of ARF/ MUSHTAQ: [ ] Other: [ ] Acute on Chronic Renal Failure please specify Stage of CKD (see below) [x ] CKD without ARF/MUSHTAQ please specify Stage of CKD III [ ] Other diagnosis [ ] Unable to determine National Kidney Foundation Guidelines for CKD Staging Stage I Kidney damage with normal or increased GFR GFR > 90 Stage II Kidney damage with mildly decreased GFR GFR 60-89 Stage III Kidney damage with moderately decreased GFR GFR 30-59 Stage IV Kidney damage with severely decreased GFR GFR 16-29 Stage V Kidney failure GFR<15 ESRD End Stage Renal Disease On dialysis For continuity of documentation, please document condition throughout progress notes and discharge summary. Thank You. CLINICAL INDICATORS - SIGNS / SYMPTOMS / LABS BUN: 30 CR: 1.79 GFR: 39 (04/04) 26 1.59 45 (04/05) 25 1.54 46 (04/06) RISK FACTORS: DM II (UNCONTROLLED) HTN TREATMENTS: IVF (NS 04/03) SERIAL LABS THANK YOU! [employer] (This form is maintained as a part of the permanent medical record) 2014 [employer]. All Rights Reserved Adwoa Turner RN, BSN [email or web address] Office: [phone] [facility]
[2018-04-06] MEDS: traMADol HCl 50 MG TAB PO PRN (15:15)
[2018-04-06] MEDS: Insulin Glargine 33 UNITS in Pre-Filled Syringe 1 EACH SC SCH (16:56)
[2018-04-06] MEDS: Lisinopril 20 MG TAB PO SCH (20:22)
[2018-04-06] MEDS: Atorvastatin Calcium 10 MG TAB PO SCH (20:23)
[2018-04-07 01:37] LABS: Vancomycin, Trough 15.6 ug/mL
[2018-04-07] MEDS: Vancomycin HCl 1.5 GM in Sodium Chloride 0.9% 250 ML 300 ML IVPB SCH (01:46)
[2018-04-07 05:00] LABS: #Eosinphils 0.3 thou/uL (0.0-0.7); #Lymphocytes 2.1 thou/uL (1.20-3.40); #Monocytes 0.6 thou/uL (0.11-0.59); #Neutrophils 5.5 thou/uL (1.40-6.50); %Basophils 0.1 % (0.0-1.0); %Eosinophils 3.7 % (0.0-10.0); %Lymphocytes 24.7 % (21.0-51.0); %Monocytes 6.8 % (0.0-10.0); %Neutrophils 64.7 % (42.0-75.0); Hemoglobin 12.4 g/dL (14.0-18.0); Mean Corpuscular Hemoglobin 29.1 pg (27.0-31.0); Mean Platelet Volume 8.3 fL (7.4-10.4); Platelet Count 305 thou/uL (130-400); RBC Distribution Width 12.1 % (11.5-14.5); Red Blood Cell (RBC) Count 4.25 mill/uL (4.70-6.10); White Blood Cell (WBC) Count 8.5 thou/uL (4.8-10.8)
[2018-04-07 05:21] LABS: Anion Gap 12 mmol/L (10-20); BUN (Urea Nitrogen) 21 mg/dL (8.4-25.7); Calc. Creatinine Clearance 98 mL/min (70-130); Calcium 9.3 mg/dL (7.8-10.44); Carbon Dioxide 26 mmol/L (22-29); Chloride 100 mmol/L (98-107); Estimated GFR-MDRD 53; Glucose 272 mg/dL (70-105); Potassium 4.1 mmol/L (3.5-5.1); Sodium 134 mmol/L (136-145)
[2018-04-07] MEDS: HYDROcodone/Acetaminophen 10/325 mg Tablet PO SCH ×2 (05:44→12:06)
[2018-04-07] MEDS: HumaLOG 300 UNITS/3 ML VIAL SC PRN (05:45)
--- NOTE | 2018-04-07 06:47 | PDOC.FM ---
- Subjective Subjective: NAEO. Patient has no complaints on exam this AM other than a sore left neck. Would like to go home but wants to maker sure her can afford his antibiotic before being discharged so he doesn't miss any doses. - Objective MAR Reviewed: Yes Vital Signs & Weight: Vital Signs (12 hours) Temp Pulse Resp BP BP Pulse Ox 04/06/18 20:22 143/67 H 04/06/18 20:00 96 04/06/18 19:17 97.4 F L 57 L 18 143/67 H 96 Weight Admit Weight 120.202 kg Weight 120.315 kg I&O: 04/05/18 04/06/18 04/07/18 06:59 06:59 06:59 Intake Total 1989 1409 1080 Balance 1989 [id number] Result Diagrams: 04/07/18 04:34 04/07/18 04:34 <Carolyn Spaulding - Last Filed: 04/07/18 08:56> - Objective Vital Signs & Weight: Vital Signs (12 hours) Temp Pulse Resp BP Pulse Ox 04/07/18 11:00 97.6 F 55 L 18 143/69 H 97 04/07/18 08:00 94 L 04/07/18 07:24 98.1 F 57 L 18 184/79 H 94 L Weight Admit Weight 120.202 kg Weight 120.315 kg I&O: 04/06/18 04/07/18 04/08/18 06:59 06:59 06:59 Intake Total 1410 1080 Balance 1410 1080 Result Diagrams: 04/07/18 04:34 04/07/18 04:34 <Donnell Kelsey - Last Filed: 04/07/18 12:41> Phys Exam - Physical Examination Constitutional: NAD HEENT: moist MMs, sclera anicteric Neck: supple, full ROM Respiratory: no wheezing, no rales, no rhonchi, clear to auscultation bilateral Cardiovascular: RRR, no significant murmur Gastrointestinal: soft, non-tender, positive bowel sounds mild distention Musculoskeletal: edema present (in LUE w/ mild improvment compared to yesterday) Neurological: non-focal, normal sensation, moves all 4 limbs Psychiatric: normal affect, A&O x 3 Skin: normal turgor, cap refill <2 seconds Deviation from normal: significant improvement in erythema surrounding L shoulder wound -: wound covered with dressing but brown, serous discharge noted on pillow <Carolyn Spaulding - Last Filed: 04/07/18 08:56> Dx/Plan (1) Cellulitis Code(s): L03.90 - CELLULITIS, UNSPECIFIED Status: Acute Qualifiers: Site of cellulitis: extremity Site of cellulitis of extremity: upper extremity Laterality: left Qualified Code(s): L03.114 - Cellulitis of left upper limb (2) Hyperglycemia due to type 2 diabetes mellitus Code(s): E11.65 - TYPE 2 DIABETES MELLITUS WITH HYPERGLYCEMIA Status: Acute (3) PVD (peripheral vascular disease) Code(s): I73.9 - PERIPHERAL VASCULAR DISEASE, UNSPECIFIED Status: Acute (4) Wound infection after surgery Code(s): T81.49XA - INFECTION FOLLOWING A PROCEDURE, OTHER SURGICAL SITE, INIT Status: Acute (5) CAD (coronary artery disease) Code(s): I25.10 - ATHSCL HEART DISEASE OF [place] CORONARY ARTERY W/O ANG PCTRS Status: Chronic (6) Chronic systolic heart failure Code(s): I50.22 - CHRONIC SYSTOLIC (CONGESTIVE) HEART FAILURE Status: Chronic (7) DM type 2 (diabetes mellitus, type 2) Status: Chronic (8) HTN (hypertension) Code(s): I10 - ESSENTIAL (PRIMARY) HYPERTENSION Status: Chronic Qualifiers: Hypertension type: essential hypertension Qualified Code(s): I10 - Essential (primary) hypertension - Plan Plan: L shoulder cellulitis s/p surgery - Will transition to PO Abx today as sensitivities have resulted. - Wound care on board, appreciate recs. - Requested assistance via CM in setting patient up with wound care to help him upon discharge. Choice letter signed and sent to [facility] this AM. - Will continue pain control with tramadol q6hr for breakthrough & norco 10 scheduled. Patient is aware that we will not be prescribing pain meds upon discharge. L arm swelling - Most likely edema from wound. - Venous U/S negative for a DVT. - Will continue DVT PPx w/ Heparin. DMII, uncontrolled. - A1c in hospital 15.4. - Will continue aggressive SSI & continue current basal dose of 33 units ACHS. Will hold off on further increasing insulin and recommend close f/u with PCP for further DM management upon discharge. - Will continue accuchecks ACHS. - Stressed importance of DM control in order to encourage better wound healing. CAD - Aware, no active chest pain at this time. - Will continue home meds. HFrEF - Aware, not in acute exacerbation. - Will continue home meds. HTN - Well controlled at this time. - Will continue home meds. Code: full ppx: Heparin Abx: IVFs: None Dispo: D/c today on PO abx w/ HH wound care per patient's request. <Carolyn Spaulding - Last Filed: 04/07/18 08:56> Attending Addendum - Attending Addendum Date/Time: 04/07/18 1240 Mr Miramontes reused my exam today. He is stable for discharge. I agree with the History, Examination, Assessment and Plan documented above with any addition or exceptions noted below. <Donnell Kelsey - Last Filed: 04/07/18 12:41>
[2018-04-07] MEDS: Pregabalin 50 MG CAP PO SCH (08:12)
[2018-04-07] MEDS: Metoprolol Tartrate 50 MG TAB PO SCH (08:13)
[2018-04-07] MEDS: Aspirin 81 mg Enteric Coated Tablet PO SCH (08:13)
[2018-04-07] MEDS: Furosemide 40 MG TAB PO SCH (08:13)
[2018-04-07] MEDS: Heparin 5,000 UNITS/ML VIAL SC SCH (08:14)
[2018-04-07] MEDS: Insulin Glargine 33 UNITS in Pre-Filled Syringe 1 EACH SC SCH (08:16)
[2018-04-07 11:37] VITALS: BP 143/69; TEMP 97.6
--- NOTE | 2018-04-08 08:21 | DIS-2 ---
DATE OF ADMISSION: 04/03/2018 DATE OF DISCHARGE: 04/07/2018 RESIDENT: Dr. Carolyn Spaulding ADMITTING ATTENDING: Dr. Max Zamora DISCHARGE ATTENDING: Dr. Donnell Kelsey CONSULTANTS: Plastic Surgery, Dr. Willson. PROCEDURES: 1. Chest x-ray which showed no acute cardiopulmonary process. 2. Vascular ultrasound which is negative for a left upper extremity deep venous thrombosis. PRIMARY DIAGNOSES: 1. Cellulitis of the left shoulder. 2. Hyperglycemia due to poorly controlled type 2 diabetes mellitus. SECONDARY DIAGNOSES: 1. Poorly controlled type 2 diabetes mellitus, insulin-dependent. 2. Coronary artery disease. 3. Hypertension. 4. Chronic systolic heart failure. 5. Peripheral vascular disease. 6. History of recurrent V-tach, status post ablations and ICD placement. 7. Chronic kidney disease stage 3. DISCHARGE MEDICATIONS: 1. Levemir FlexPen 33 units SQ b.i.d. 2. Bactrim-DS 1 tab p.o. b.i.d. for 14 days. 3. Aspirin 81 mg p.o. daily. 4. Atorvastatin 10 mg p.o. at bedtime. 5. Furosemide 40 mg p.o. q.a.m. 6. Lisinopril 40 mg p.o. at bedtime. 7. Metoprolol 50 mg p.o. b.i.d. 8. Pregabalin 100 mg p.o. t.i.d. DISCONTINUED MEDICATIONS: Levemir FlexPen 22 units SQ b.i.d. HOSPITAL COURSE: The patient is a 62-year-old gentleman with an extensive past medical history including history of recurrent ventricular tachycardia, status post ablation and AICD placement, poorly controlled type 2 diabetes, peripheral vascular disease, and chronic kidney disease stage 3, who presented to the Emergency Department with a chief complaint of left shoulder pain and infection that began early on the day of presentation. Of note, the patient had a basal cell carcinoma removed from his left shoulder by Plastic Surgery, Dr. Willson on Friday03/27/2018. He had a followup appointment with Dr. Willson on 04/02/2018, during which Dr. Willson noted that the wound has become infected and did a debridement and wash out in his office and instructed the patient to wash the wound with soap and water and keep it clean, dry, and covered and started him on p.o. antibiotics. However, due to the progressively worsening pain, the patient decided to come to the ER for further evaluation. The patient was initially evaluated in the [facility] and given a dose of IV clindamycin, Zosyn, and vancomycin as well as 2 liters of normal saline, 50 mcg of IV fentanyl and 4 mg of Zofran . He was then transferred to the [facility] for further management. On arrival to the [facility], his vitals were noted to be within normal limits and he reported the pain to be 4/10 in severity. The patient's blood work was significant for a sodium of 128, a BUN and creatinine of 39 and 2.24, consistent with his stage 3 chronic kidney disease, and a blood glucose level of 627. His lactic acid was also elevated at 2.3 and his white blood count was 14.4. A chest x-ray was also obtained which was negative for any acute cardiopulmonary findings and the patient was admitted to the medical floor and continued on IV vancomycin only. He was given 10 units of humalog and required an additional 20 units along with his basal insulin dose of 22 units to get his BG under 300. The following day, Plastic Surgery, Dr. Abebe Willson, was consulted to come and evaluate the patient. He recommended continuing IV vancomycin until sensitivities from the wound culture resulted ensuring that the patient will be placed on appropriate p.o. antibiotics before being discharged home. By the date of discharge, the patient's susceptibilities returned revealing that the his shoulder infection was sensitive to all antibiotics with the exception of amoxicillin and piperacillin, and after the patient revealed that he would be unable to afford any antibiotics until his payday on Friday unless his insurance completely covered them, it was decided to send in another course of p.o. Bactrim that the patient would take for 2 weeks. Case management was also consulted to assist the patient in setting up home health to come and assist him with weekly wound care. Regarding the patient's hyperglycemia, the patient was was placed on a consistent carb diet of 2000 calories per day and his daily basal insulin dose was titrated up until the patient reached a dose of 33 units b.i.d. which kept his blood sugars consistently below 300 over the next several days. His A1c on admission was extremely elevated at 15.4. Thus, the importance of controlling his blood glucose levels to ensure adequate wound healing was stressed to him multiple times over the course of his hospitalization and he was instructed to follow up with his primary care provider, Dr. Getachew Valdez within 3 days of discharge in order to achieve improved glycemic control. Regarding the patient' s electrolyte disturbances, his sodium and chloride were trended for the duration of his hospital stay and by the date of discharge, both had trended up. Lastly, his lactic acid also down trended to 1.4 later on the morning of admission. DISPOSITION: Stable. DISCHARGE INSTRUCTIONS: 1. Location: Home. 2. Diet: Diabetic diet, renal diet, heart healthy diet, fluid restriction and low sodium. 3. Activity: As tolerated. 4. Followup: The patient was instructed to follow up with his primary care provider, Dr. Getachew Valdez, within 3 days of discharge. He was also instructed to follow up with Plastic Surgery, Dr. Abebe Willson within 1 week of discharge. MATEO
== END 2018-04-07 14:29 | disposition home or self-care (01) | DRG 863 ==
LOC: ERS 03:24 → T4-B 04:17
PROVIDERS: ADMIT Family Medicine; ATTEND Family Medicine
DX: T81.49XA Infection following a procedure, other surgical site, initial encounter (principal); I50.22 Chronic systolic (congestive) heart failure; L03.114 Cellulitis of left upper limb; I13.0 Hypertensive heart and chronic kidney disease with heart failure and stage 1 through stage 4 chronic kidney disease, or unspecified chronic kidney disease; E11.65 Type 2 diabetes mellitus with hyperglycemia; I25.10 Atherosclerotic heart disease of native coronary artery without angina pectoris; E11.51 Type 2 diabetes mellitus with diabetic peripheral angiopathy without gangrene; N18.3 Chronic kidney disease, stage 3 (moderate); E11.22 Type 2 diabetes mellitus with diabetic chronic kidney disease
CPT/HCPCS: 36415; 36416; 80048; 80202; 83036; 83605; 85025; 87070; 87077; 87186; 87205; 90471; 90686; 99285; G0008; J0131; J1644; J1650; J1815; J2543; J3010; J3370; J7050; Q0162

== ENCOUNTER 2018-04-23 12:26 | Inpatient (IN) | payer MEDICARE ==
[~2018-04-23 12:26] MED LIST changes: -DOPamine 400 MG/D5W 250 ML 250 ML ONE; -Fentanyl 100 MCG/2 ML VIAL ONE; +Heparin 10,000 UNITS/ 10 ML VIAL ONE; -Heparin 10,000 UNITS/1 ML VIAL ONE; -Lidocaine 1% (PF) 30 ML VIAL ONE; -Midazolam HCl 2 mg/2 ml Vial ONE; -PROPOFOL 200 MG/20 ML VIAL ONE; -Propofol 1,000 MG/100 ML VIAL IV ONE; -Propofol 500 MG/50 ML VIAL ONE
[2018-04-23 13:32] LABS: #Eosinphils 0.2 thou/uL (0.0-0.7); #Lymphocytes 1.6 thou/uL (1.20-3.40); #Monocytes 0.5 thou/uL (0.11-0.59); #Neutrophils 6.2 thou/uL (1.40-6.50); %Basophils 0.5 % (0.0-1.0); %Eosinophils 2.8 % (0.0-10.0); %Lymphocytes 18.9 % (21.0-51.0); %Monocytes 5.7 % (0.0-10.0); %Neutrophils 72.1 % (42.0-75.0); Hemoglobin 12.8 g/dL (14.0-18.0); Mean Corpuscular HGB CONC 31.7 g/dL (32.0-36.0); Mean Corpuscular Hemoglobin 29.2 pg (27.0-31.0); Mean Corpuscular Volume 92.2 fL (78.0-98.0); Mean Platelet Volume 9.2 fL (7.4-10.4); Platelet Count 247 thou/uL (130-400); RBC Distribution Width 12.9 % (11.5-14.5); White Blood Cell (WBC) Count 8.6 thou/uL (4.8-10.8)
[2018-04-23 13:55] LABS: ALT (SGPT) 22 U/L (8-55); AST (SGOT) 15 U/L (5-34); Alkaline Phosphatase 132 U/L (40-150); Anion Gap 14 mmol/L (10-20); BUN (Urea Nitrogen) 65 mg/dL (8.4-25.7); Bilirubin, Total 0.5 mg/dL (0.2-1.2); Calc. Creatinine Clearance 0 mL/min (70-130); Calcium 9.4 mg/dL (7.8-10.44); Carbon Dioxide 18 mmol/L (22-29); Chloride 105 mmol/L (98-107); Estimated GFR-MDRD 19; Globulin 3.4 g/dL (2.4-3.5); Glucose 251 mg/dL (70-105); Magnesium 2.2 mg/dL (1.6-2.6); Protein, Total 7.4 g/dL (6.0-8.3); Sodium 129 mmol/L (136-145)
[2018-04-23 13:58] LABS: Potassium 8.1 mmol/L (3.5-5.1)
[2018-04-23] MEDS ORDERED: ISOVUE-370 76%-LOCM 1 ML ONE (14:02)
[2018-04-23] MEDS ORDERED: Dextrose 50% Abboject 50 ML SYRINGE ONE (14:21)
[2018-04-23] MEDS ORDERED: Insulin Regular 300 UNITS/3 ML VIAL ONE (14:21)
[2018-04-23] MEDS ORDERED: Calcium Chloride 1 GM/10 ML Abboject SYRINGE ONE (14:21)
--- NOTE | 2018-04-23 14:40 | CT ---
CTA OF THE ABDOMEN AND PELVIS WITH IV COTNRAST AND 3D REFORMATTED IMAGING WITH BILATERAL LOWER EXTREM ITY RUNOFF: FINDINGS: The lung bases are clear. No focal hepatic lesion is evident. The adrenal glands and pancreas are normal appearing. The spleen is normal appearing. The kidneys a ppear within normal limits. There is a tiny 1-2 mm nonobstructing calculus within the mid pole of th e left kidney. No free fluid or enlarged lymph nodes are evident. There is mild prostatic enlargement. There is a mild amount of retained stool within the colon. The small bowel is of normal caliber. There is a no rmal appendix in the right lower quadrant. There is moderate calcification involving the abdominal aorta. No aneurysmal dilatation is demonstra mireya. No luminal caliber narrowing is evident. There is a combined trunk to the celiac and SMA origi ns. The celiac and SMA contributions are widely patent. The main trunk is widely patent. The left splenic, hepatic artery, and left gastric artery are patent. The visualized SMA branches appear farias nt. 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 The LEO artery is patent. The aortic bifurcation and common iliac arteries are widely patent. There is some mild atherosclerotic irregularity to the common iliac arteries. The right common iliac bifurcation is patent. There are multifocal areas of stenosis involving the r ight internal iliac artery. The right external iliac artery is patent. There is 50% luminal caliber narrowing involving the right common femoral artery. The common femoral bifurcation is patent. The right superficial femoral artery is patent. Beam-scatter artifact from the patient's right total kn ee prosthesis limits evaluation of portions of the right popliteal artery. Distal popliteal artery i s patent. There are multifocal areas of moderate stenosis involving the anterior tibial artery and t ibioperoneal trunk. There is high-grade stenosis involving the distal right tibioperoneal trunk. Th ere is 3-vessel runoff to the level of the ankle. The left common iliac artery is patent. The iliac bifurcation is patent. There is some mild narrowi ng involving the distal left internal carotid artery. The left external iliac arteries demonstrates some mild luminal caliber narrowing. There is 50% luminal caliber narrowing involving the left commo n femoral artery. The bifurcation is patent. The left superficial femoral artery demonstrates some atherosclerotic irregularity, but no hemodynamically significant stenosis. Proximal popliteal artery is patent. Beam scatter artifact from the patient's left total knee prosthesis limits evaluation of the mid to distal left popliteal artery. There is some opacification of the inferior left popliteal artery, but there is high-grade stenosis to complete occlusion at the level of the trifurcation with no apparent flow within the anterior tibial artery and very minimal flow is seen within the tibioper lyon trunk. There are patchy areas of reconstituted flow within the proximal posterior tibial arter y, but no apparent flow within the peroneal artery. There is no flow seen within the anterior tibial artery, posterior tibial artery, or post peroneal artery from the level of the proximal foreleg down to the level of the ankle. There is postsurgical change of a partial amputation of the great toe bi laterally. There is scattered degenerative and osteoarthritic change. No definite acute osseous abn ormality is evident. IMPRESSION: 1. 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 2. 50% luminal caliber narrowing involving the common femoral arteries bilaterally. 3. Areas of multifocal high-grade stenosis involving the right trifurcation, proximal anterior tibia l artery, and tibioperoneal trunk. There is 3-vessel runoff to the level of the right ankle. 4. Findings were called to Dr. Huffman at 2:05 p.m. on 04/23/2018. CODE CR POS: ALESSIA
--- NOTE | 2018-04-23 15:20 | PDOC.FPRHP ---
- History of Present Illness Chief Complaint: LLE weakness History of Present Illness: Mr. Miramontes presents to the ED with complaints of leg weakness starting today. For the past month he has noticed increased numbness of his left lower extremity at the time he did not think much of it, denies pain, skin color changes. He reports tripping over his foot frequently for the past week and diarrhea for 3 days. He has a long medical history of vascular disease and multiple procedures. Recently he had wound dehiscense of his L shoulder after excision of a BCC. He currently denies smoking, chest pain, shortness of breath , fever, chills, palpitations. ED Course: CTA LE significant for occlusion at trifurcation just distal to popliteal K 8.1, Cr 3.27 IV CaCl, D5W/insulin, 1 L NS Temporary dialysis catheter placed - Allergies/Adverse Reactions Allergies Allergy/AdvReac Type Severity Reaction Status Date / Time amlodipine Allergy Verified 09/26/17 10:00 duloxetine [From Cymbalta] Allergy Verified 09/26/17 10:00 morphine Allergy Nausea Verified 09/26/17 10:00 orange Allergy Verified 09/26/17 10:00 orange flavor Allergy Verified 09/26/17 10:00 orange juice [Mckenzie Juice] Allergy Verified 09/26/17 10:00 varenicline [From Chantix] Allergy Verified 09/26/17 10:00 - Home Medications Medication Instructions Recorded Confirmed Type Lisinopril 40 mg PO HS 08/02/13 04/03/18 History Atorvastatin Calcium [Lipitor] 10 mg PO HS 07/16/17 04/03/18 History Pregabalin [Lyrica] 100 mg PO TID 07/16/17 04/03/18 History Metoprolol Tartrate 50 mg PO BID #60 tablet 09/09/17 04/03/18 Rx Furosemide [Lasix] 40 mg PO QAM 09/26/17 04/03/18 History Aspirin [Ecotrin Low Strength] 81 mg PO DAILY 04/03/18 04/03/18 History Levemir Flexpen 33 unit SC BID #5 pen 04/07/18 Rx Sulfamethoxazole/Trimethoprim 1 tab PO BID #28 tab 04/07/18 Rx [Bactrim DS] - History PMHx:Recurrent v-tach s/p ablations and ICD placement, CAD s/p stent and CABG, PVF, HFrEF, DMII, HTN, CKD PSHx: CABG, AICD placement, extensive orthopedic back, knee, and wrist surgeries , bilateral great toe amputations FHx: Social: pack year smoking history - Vital signs BP: [] HR: [] RR: [] Tmax: [] Pox: []% on [] Wt: [] FMR H&P: Results - Labs Result Diagrams: 04/23/18 13:22 04/23/18 15:40 Lab results: WBC 8.6 thou/uL (4.8-10.8) 04/23/18 13:22 Hgb 12.8 g/dL (14.0-18.0) L 04/23/18 13:22 Hct 40.5 % (42.0-52.0) L 04/23/18 13:22 MCV 92.2 fL (78.0-98.0) 04/23/18 13:22 Plt Count 247 thou/uL (130-400) 04/23/18 13:22 Neutrophils % 72.1 % (42.0-75.0) 04/23/18 13:22 Sodium 129 mmol/L (136-145) L 04/23/18 13:22 Potassium 8.1 mmol/L (3.5-5.1) H* 04/23/18 13:22 Chloride 105 mmol/L (98-107) 04/23/18 13:22 Carbon Dioxide 18 mmol/L (22-29) L 04/23/18 13:22 BUN 65 mg/dL (8.4-25.7) H 04/23/18 13:22 Creatinine 3.27 mg/dL (0.6-1.3) H 04/23/18 13:22 Glucose 251 mg/dL (70-105) H 04/23/18 13:22 Calcium 9.4 mg/dL (7.8-10.44) 04/23/18 13:22 Total Bilirubin 0.5 mg/dL (0.2-1.2) 04/23/18 13:22 AST 15 U/L (5-34) 04/23/18 13:22 ALT 22 U/L (8-55) 04/23/18 13:22 Alkaline Phosphatase 132 U/L (40-150) 04/23/18 13:22 Serum Total Protein 7.4 g/dL (6.0-8.3) 04/23/18 13:22 Albumin 4.0 g/dL (3.5-5.0) 04/23/18 13:22 FMR H&P: A/P - Problem List (1) Ischemia of left lower extremity Current Visit: Yes Status: Acute Code(s): I99.8 - OTHER DISORDER OF CIRCULATORY SYSTEM (2) Hyperkalemia Current Visit: Yes Status: Acute Code(s): E87.5 - HYPERKALEMIA (3) Acute kidney injury superimposed on CKD Current Visit: Yes Status: Acute Code(s): N17.9 - ACUTE KIDNEY FAILURE, UNSPECIFIED; N18.9 - CHRONIC KIDNEY DISEASE, UNSPECIFIED (4) HFrEF (heart failure with reduced ejection fraction) Current Visit: Yes Status: Acute Code(s): I50.20 - UNSPECIFIED SYSTOLIC ( CONGESTIVE) HEART FAILURE (5) HLD (hyperlipidemia) Current Visit: Yes Status: Acute Code(s): E78.5 - HYPERLIPIDEMIA, UNSPECIFIED (6) Coronary artery disease Current Visit: No Status: Chronic Code(s): I25.10 - ATHSCL HEART DISEASE OF [place] CORONARY ARTERY W/O ANG PCTRS (7) DM type 2 (diabetes mellitus, type 2) Current Visit: No Status: Chronic Comment: on Insulin (8) HTN (hypertension) Current Visit: No Status: Chronic Code(s): I10 - ESSENTIAL (PRIMARY) HYPERTENSION Qualifiers: Hypertension type: essential hypertension Qualified Code(s): I10 - Essential (primary) hypertension - Plan LLE ischemia - Pedal pulse not auscultated with Doppler, CTA of LLE reveals occlusion distal to popliteal - CV surgery consulted, appreciate recs Hyperkalemia - Potassium 8.1 on admission - Surgery consulted from ED for temporary dialysis catheter placement - Nephrology consulted from ED for urgent dialysis, appreciate further recommendations - EKG: - Monitor BMP - Admit to telemetry for close cardiac monitoring MUSHTAQ - Emergent dialysis -Gentle IVF resuscitation - Monitor BMP - Avoid nephrotoxic meds, hold home Lasix HFrEF - Hold home Lasix, monitor fluid status - Monitor on telemetry HLD - Continue home meds CAD - Hold ASA pending surgery recs HTN - Hold Lisinopril, monitor BP q4hr - PRN hydralazine DMII - Continue home dose - Mild SSI Disposition/LOS: Admit to telemetry, emergent dialysis today, await CV surgery recs regarding LLE ischemia FMR H&P: Upper Level - Plan Date/Time: 04/23/18 1518 I, [], have evaluated this patient and agree with findings/plan as outlined by equine intern resident. Pertinent changes/additions are listed here.
[2018-04-23 15:23] LABS: HBSAB Concentration 0.86 mIU/mL; HBSAg Index 0.22 S/CO (0-0.99); Hep B Surf AB Non-Reactive (NonReactive); Hep B Surf Ag Non-Reactive S/CO (NonReactive)
[2018-04-23 16:11] LABS: Anion Gap 12 mmol/L (10-20); BUN (Urea Nitrogen) 65 mg/dL (8.4-25.7); Calc. Creatinine Clearance 0 mL/min (70-130); Carbon Dioxide 20 mmol/L (22-29); Chloride 107 mmol/L (98-107); Estimated GFR-MDRD 20; Glucose 133 mg/dL (70-105); Potassium 6.4 mmol/L (3.5-5.1); Sodium 133 mmol/L (136-145)
[2018-04-23] MEDS ORDERED: Acetaminophen 325 MG TAB PO PRN (18:11)
[2018-04-23] MEDS ORDERED: Senokot S 8.6-50 MG TAB PO PRN (18:11)
--- NOTE | 2018-04-23 18:41 | CON ---
DATE OF CONSULTATION: 04/23/2018 HISTORY OF PRESENT ILLNESS: Mr. Miramontes is a 62-year-old white male who has known history of chronic renal failure from diabetic nephropathy and was admitted due to left leg pain and feeling of decrease d sensation. He underwent an emergent CT of the abdomen and pelvis with IV contrast. There is a fin ding of a complete occlusion of the left foreleg vasculature at the level of the distal trifurcation with some patchy reconstituted flow over the proximal posterior tibial artery. In addition, there wa s a 50% luminal caliber narrowing involving the common femoral arteries bilaterally. There were also areas of focal high-grade stenosis involving the right trifurcation, proximal anterior tibial artery and tibial peroneal trunk. There is a three-vessel runoff to the level of the right ankle. During the initial evaluation, the patient was noted to be hyperkalemic and has a worsening dysfuncti on with a creatinine now noted at 3.27. Please note his potassium was 8.1. I saw him in clinic 1 we ek ago and the creatinine was noted at 1.68 with a GFR of 42 mL per minute. Essentially, the GFR has now dropped down to 19 mL per minute. Due to the hyperkalemia, we will be doing an emergent hemodia lysis. Consult with Dr. Jerry Dela Cruz has been done for placement of femoral dialysis catheter. Of interest, this patient was on lisinopril, Lasix and potassium when he left my clinic on 04/14/2018. In the interim, the patient has been taking Bactrim. I feel that this addition may have thrown off t he patient's renal function as well as to his hyperkalemia. We are now being consulted for management of his acute renal injury on top of his chronic renal failu re as well as hyperkalemia. REVIEW OF SYSTEMS: Positive for leg pain. Positive for decreased sensation of the left leg. No jc sea, no vomiting, no diarrhea, no constipation, no productive cough, no fever or chills, no shortness of breath, no hematochezia, no melena, no dysuria, no urinary frequency, no diplopia, no sore throat , occasional joint pains. MEDICATIONS: Currently on Bactrim-DS 1 tab p.o. b.i.d., Lyrica 100 mg p.o. t.i.d., metoprolol tartra te 50 mg p.o. b.i.d., lisinopril 40 mg at bedtime, Levemir 33 units subcu b.i.d., furosemide 40 mg q. a.m., atorvastatin 10 mg tab at bedtime, aspirin 81 mg daily. PAST MEDICAL HISTORY: Peripheral vascular disease, chronic renal failure from diabetic nephropathy, type 2 diabetes mellitus, diabetic neuropathy, CHF -- combined systolic, diastolic dysfunction, hyper tension, coronary artery disease, DJD, status post osteomyelitis. PAST SURGICAL HISTORY: 1. Status post AICD placement. 2. Status post removal of an infected AICD. 3. Status post cardiac catheterization. 4. Status post CABG. 5. Status post back surgery x11. 6. Status post bilateral toe amputation. 7. Status post bilateral big toe amputation. 8. Status post bilateral knee surgery. 9. Status post cardiac catheterization. SOCIAL HISTORY: The patient lives in [place]. He lives alone. He is , no children. Smoked f or 48 years, averaging 2-4 packs per day. He is a retired truck engine technician. Education: High school. N o IV drug abuse. Status post marijuana use. No blood transfusion. TRAUMA: None. IMMUNIZATIONS: Up to date. ALLERGIES: MORPHINE, CYMBALTA, AMLODIPINE. HOSPITALIZATIONS: Please see past medical history. FAMILY HISTORY: No family history of ESRD. PHYSICAL EXAMINATION: VITAL SIGNS: Blood pressure is 140/70, heart rate 70. GENERAL: Noted to be awake, alert, supine, comfortable, not in distress. SKIN: Adequate turgor. HEENT: Patient has pinkish conjunctivae, anicteric sclerae. NECK: No neck mass, no carotid bruits, no JVD. CHEST: No deformities. LUNGS: Clear breath sounds, no wheezing, no crackles. HEART: Normal sinus rhythm. No murmur, no gallops, no rubs. ABDOMEN: Globular, soft, nontender, no masses. EXTREMITIES: No edema. Left foot positive for erythema, decreased sensation on the left foot as wel l as decreased warmth. NEUROLOGIC: Awake, oriented to 3 spheres. Moving all extremities. No tremors, no asterixis, no doris jani. LABORATORY X-RAY FINDINGS: Labs of 04/23/2018, white count 8.6, hemoglobin is 12.8. Sodium 129, pot assium 8.1, chloride 105, carbon dioxide 18, BUN 65, creatinine 3.27, GFR 19 mL per minute, glucose 2 51, calcium 9.4, AST 15, ALT 22, albumin 4. Aorta with a runoff CTA shows essentially complete occlusion of the left foreleg vasculature at the l evel of the distal trifurcation. ASSESSMENT AND PLAN: 1. Acute kidney injury on top of his chronic renal failure due to the severe hyperkalemia and volume overload with this patient. Consider emergent hemodialysis. We will plan to do a 2-hour hemodialys is using a 2-0 potassium bath. Hopefully, this will significantly decrease his potassium. I am stil l hopeful that he will have a renal recovery where I can get him off dialysis. I did explain the gael gnosis and prognosis to the patient. 2. Hyperkalemia, emergent hemodialysis. I agree to hold off lisinopril. Continue to hold off any p otassium supplementation as well as the Bactrim. 3. Peripheral vascular disease. Cardiothoracic Surgery is evaluating the patient. Any surgical intervention will await until the potassium is much improved for the patient. Overall, agree with current management.
--- NOTE | 2018-04-23 19:04 | PDOC.EVN ---
Event Note - Event Note Event Note: Pt. was seen at 1630. At that time, he expressed wishes to not be under the care of the residents. Pt. was checked out to [facility] doctor identification printing machine setter at 1700, [facility] assumed care of pt. at that time.
--- NOTE | 2018-04-23 19:30 | OP ---
DATE OF PROCEDURE: 04/23/2018 POSTOPERATIVE DIAGNOSES: 1. Acute renal failure. 2. Acute hyperkalemia. POSTOPERATIVE DIAGNOSES: 1. Acute renal failure. 2. Acute hyperkalemia. PROCEDURES PERFORMED: Placement of right femoral Trialysis catheter for emergency dialysis. INDICATIONS FOR PROCEDURE: A 62-year-old morbidly obese man with history of chronic renal insufficiency and diabetes mellitus. The patient has worsening acute renal failure complicated by acute hyperkalemia with potassium of 8.1. I was asked to place a non-tunneled dialysis access for emergent hemodialysis. DESCRIPTION OF PROCEDURE: Informed consent obtained from Mr. Miramontes who was placed in supine position. Right groin was sterilely prepped and draped in usual fashion. The right femoral artery was palpated at the groin. Skin medial to the palpated artery was anesthetized with 1% lidocaine. The right femoral vein was cannulated medial to the right femoral artery returning dark venous blood. A guidewire was passed through the introducer needle advancing this into the right femoral vein without resistance. The needle was withdrawn over the guidewire. A stab incision is made adjacent to the guidewire. A dilator was passed over the guidewire dilating subcutaneous tissues. The dilator was removed and a triple-lumen Trialysis catheter was advanced over the guidewire and placed in the right femoral vein without resistance. Guidewire is removed. Dark venous blood was aspirated from all 3 ports which were individually flushed with saline followed by heparin. This catheter was secured to the groin using 3-0 nylon suture at 2 points. Biopatch and sterile dressings were applied. The patient tolerated this procedure without any apparent complication and was handed off to Nephrology for emergency dialysis. MATEO
--- NOTE | 2018-04-23 19:37 | CON ---
DATE OF CONSULTATION: 04/23/2018 REQUESTING PHYSICIAN: Cliff Huffman MD CHIEF COMPLAINT: Left foot discoloration. HISTORY OF PRESENT ILLNESS: The patient is a 62-year-old diabetic man with diffuse vascular disease and renal insufficiency. Over the last few days, he says that he has fallen several times from a sta nding position and attributed to worsening of his baseline diabetic neuropathy. Today, he noticed th at his left foot seemed a little bit and when he looked at it realized that the purplish discol oration was more pronounced and had more mottling to it than his baseline dependent rubor. He presen mireya to the emergency room where screening labs demonstrated a significant increase in his creatinine from his baseline over the last few months and potassium slightly over 8. PAST MEDICAL HISTORY: Significant for coronary artery disease with a cardiomyopathy. He is status p ost coronary artery bypass grafting x4 utilizing saphenous vein harvested from his left lower extremi ty status post AICD implantation, peripheral vascular disease. He is status post bilateral great toe ray amputations. He has had previous explantation of an AICD due to infection. He has had multiple back operations. He has had relatively recent bilateral knee replacements. He has renal insufficie ncy with his baseline BUNs in the 20-30 range and creatinines in the 1.5 to 2.5 range over the last s everal months. HOME MEDICATIONS: Levemir, baby aspirin, Lipitor, Lasix, lisinopril, Lopressor, Lyrica and Bactrim. ALLERGIES: He reports adverse reactions or allergies to NORVASC, CYMBALTA, MORPHINE, CHANTIX and ORA NGES. HABITS: The patient has switched from cigarettes to cigars and claims that he does not inhale. FAMILY HISTORY: Significant for diabetes. REVIEW OF SYSTEMS: Positive for his neuropathy causing fairly dense paresthesias in his feet. PHYSICAL EXAMINATION: GENERAL: He is stocky man in no distress, but he becomes quite tearful when discussing the implicati ons of his presentation. VITAL SIGNS: Heart rate is 54, blood pressure 130/47, temperature is 98.0, room air O2 saturations a re 100%. SKIN: He has no xanthelasma. NECK: No carotid bruits. LUNGS: His chest is clear to auscultation. CARDIOVASCULAR: He has a regular rate and rhythm. ABDOMEN: Soft and nontender without obvious masses or bruits. EXTREMITIES: He has well healed surgical scar, status post sternotomy and left lower extremity vein harvest. His surgical scar is status post knee replacements. He has palpable femoral pulses bilater ally without audible bruits. He has nonpalpable popliteal, dorsalis pedis or posterior tibial pulses . He has well healed surgical scars from ray amputations of both great toes, both feet have dependen t rubor. There is slightly greater purplish discoloration and mottling to the left foot, but it has capillary refill of around 3 seconds. It is only very slightly cooler than the right foot. He is ab le to move it actively. The ankle is freely mobile passively. The compartments of the lower leg are soft and nontender. He has decreased sensation in both feet. LABORATORY DATA: His white counts 8.6, hemoglobin 12.8, hematocrit 40.3, platelets 247,000. Sodium 129, potassium 8.1, chloride 105, CO2 of 18, glucose 251, BUN 65, creatinine 3.27, calcium is 9.4, bi lirubin is 0.5, alkaline phosphatase 132, AST 15, ALT 22. Albumin is 4.0. His CTA of his aorta with runoff shows a diffuse plaque with minimal stenosis in the aortoiliac system down into the common fe morals. On the left side, he has diffuse calcifications in the superficial femoral distally. There is significant stenosis in the popliteal scatter artifact from the knee prostheses limits evaluation of the popliteal at the knee, although on lateral films one can see it, but it is difficult to apprec iate opacification. Below the knee there is extensive calcification of the trifurcation vessels that are small caliber with only patchy islands of what appeared to be patent and opacified shank vessels . On the right side, he has a popliteal and trifurcation vessel disease, but the trifurcation vessel s appear to be better quality. IMPRESSION AND RECOMMENDATIONS: The first priority is to address the patient's hyperkalemia and prep arations are already underway for placement of dialysis catheter for emergent dialysis. Clinically, the patient's left leg, though certainly at least chronically ischemic. Appears to be viable, I find it difficult to believe that there is enough myonecrosis to account for his bump in creatinine and h is hyperkalemia. Arteriographic, I think that the patient is not to be revascularizable on the left side even if one were to resort to the approach of harvesting vein from the right leg to do a below k nee bypass on the left. This would have the additional downside of that vein not being available for limb salvage on the right side when that point eventually comes. I do not think that the patient ne eds amputation emergently or even urgently, but I suspect that it is inevitable.
[2018-04-23] MEDS ORDERED: Ondansetron PF 4 MG/2 ML Vial IVP PRN (19:44)
[2018-04-23] MEDS ORDERED: Ondansetron ODT 4 MG TAB SL PRN (19:44)
[2018-04-23] MEDS: Metoprolol Tartrate 50 MG TAB PO SCH (20:33)
[2018-04-23] MEDS: Atorvastatin Calcium 10 MG TAB PO SCH (20:33)
[2018-04-23] MEDS: Heparin 5,000 UNITS/ML VIAL SC SCH (20:33)
[2018-04-23] MEDS: Pregabalin 50 MG CAP PO SCH (20:33)
[2018-04-23] MEDS ORDERED: Metoprolol Tartrate 50 MG TAB PO SCH (21:00)
[2018-04-23] MEDS ORDERED: Dextrose 5% in Water 1,000 ML IV PRN (21:55)
[2018-04-23] MEDS ORDERED: HumaLOG 300 UNITS/3 ML VIAL SC PRN (21:55)
[2018-04-23] MEDS ORDERED: Dextrose 50% Abboject 50 ML SYRINGE IVP PRN (21:55)
[2018-04-23] MEDS ORDERED: Melatonin 3 MG TAB PO SCH (22:00)
[2018-04-23 22:50] VITALS: BMI 34.1
--- NOTE | 2018-04-23 23:15 | HP ---
This is Dr. Valdez's patient. Dr. Landaverde was covering for this patient. HISTORY OF PRESENT ILLNESS: Mr. Miramontes is a 62-year-old male with past medical history of diabetes, hypertension and peripheral vascular disease, who presented to the hospital today with complaints of left lower leg tingling and weakness. The patient stated that on Friday, he fell about 3 or 5 times . The patient thought that this was most likely secondary to his left knee giving out. Patient stat ed that he did have some numbness and tingling on the left lower extremity; however, he did not think much of it. The patient stated that on Friday, he went and fed his deer. He was doing okay. He had no issues with that leg. However, this morning, he woke up, had his coffee and then started hav ing some left lower extremity again numbness and fell again for which he called Dr. Valdez's office since he was out of town. The nurse asked him to come into the ER for further evaluation. Patient d enies any chest pain, shortness of breath, nausea, vomiting or diarrhea. Patient initially was admit mireya with the residents. However, patient refused to see the residents. At this time, I did make a p chon call to Dr. Landaverde to make sure that was okay to takeover the patient and he agreed. Of note, the patient wanted to see Dr. Nielsen; however, I had told the patient that Dr. Nielsen was on a vac ation. PAST MEDICAL HISTORY: He has had coronary artery disease status post stent. He has had a history of diabetes, hypertension, chronic kidney disease, tobacco use, recurrent V-tach, status post ablation and ICD placement. PAST SURGICAL HISTORY: History of bypass, AICD placement, extensive orthopedic, back, knee and wrist surgeries, bilateral great toe amputation. FAMILY HISTORY: Patient had no significant history of diabetes or hypertension. SOCIAL HISTORY: The patient was a former heavy smoker, quit smoking many years ago. Denies any alco hol or drug use. REVIEW OF SYSTEMS: All negative except for the ones mentioned above in the HPI. ALLERGIES: He has got multiple allergies. Allergic to AMLODIPINE, DULOXETINE, MORPHINE, ORANGE, ORA NGE FLAVOR, ORANGE JUICE and CHANTIX. HOME MEDICATIONS: He takes lisinopril 40 mg at bedtime, Levemir 24 units b.i.d., atorvastatin 10 mg at bedtime, Lyrica 100 mg t.i.d., metoprolol 50 mg b.i.d., Lasix 40 mg q.a.m. and aspirin 81 mg daily . He also has been taking potassium for the past 5 days. PHYSICAL EXAMINATION: VITAL SIGNS: Temperature of 98.8, 63, 16, 99% on room air, 123/59. GENERAL: He is awake, alert, oriented x3. Does not appear in any distress. CARDIOVASCULAR: S1, S2 present. No murmurs, rubs or gallops. LUNGS: Clear to auscultation. No rhonchi or wheezes noted. ABDOMEN: Soft, nontender. Bowel sounds are present x2. EXTREMITIES: He does have a pedal pulse on Doppler of the left lower dorsalis pedis. The right leg is also palpable. He does have bilateral great toe amputation. His left lower extremity below the k nee appears to be mild cool to touch. He is able to feel pressure, but on a pinpoint pain, he is romelia ble to feel painful stimuli to his left lower below the knee. NEUROLOGIC: Neurological culver, no focal deficits are noted. LABORATORY DATA: Laboratory results are as of the following; WBCs of 8.6, hemoglobin of 12.8, hemato crit 40.5, platelets of 247. Chemistry: Sodium 129, potassium of 8.1, BUN of 65, creatinine of 3.27 , glucose of 251. IMAGING DATA: Patient did have a CTA aorta runoff which indicated that the patient has significant c omplete occlusion in the left foreleg vasculature in the level of the distal trifurcation with small patchy reconstitution flow seen over the proximal posterior tibial artery and areas of multifocal hig h-grade stenosis involving the right trifurcation proximal anterior tibial artery and tibial peroneal trunk. ASSESSMENT AND PLAN: The patient is a very pleasant 62-year-old male who presents to the hospital wi th a fall and left lower extremity weakness and also numbness. 1. Acute hyperkalemia. Patient was found initially on blood work to have potassium of 8.1. He has been taking potassium for the past 5 days since he has been doubling up on his Lasix. The patient di d have repeat potassium, BNP at 340, which indicated a serum potassium level of 6.4. However, at thi s time dialysis had already been initiated. The patient currently when I was seeing him, he was in d ialysis. There was some delay since the patient was seen initially by the residents; however, the pa harish declined to see the residents and wanted Dr. Nielsen initially to be seeing him. However, [facility] Dr. Nielsen is not working today, I ended up seeing the patient. The patient's EKG, no significant changes. We will continue to monitor. 2. Left lower extremity weakness and numbness. He does have complete occlusion to the left foreleg vasculature at the level of the distal trifurcation. He was seen by CV surgeon who recommended an am putation. At this time, Orthopedic has been consulted. The patient is very emotional about this; ping cantu, he states that if this needs to be done he is ready for it. 3. Diabetes. We will continue his home medication. 4. Hypertension. The patient's blood pressure is a little bit on the low side. We will hold the li sinopril and continue to monitor. 5. Acute kidney injury on chronic kidney disease. The patient's creatinine baseline is around 1-2. We will continue to monitor, patient's creatinine currently is 3.13. This could be secondary to eit her hypovolemia since he was taking diuretics twice a day, unsure of, but the patient is a very aminah le of diabetic also. He does have a temporary catheter placed and he did have dialysis which only 70 0 mL were removed. He was hypotensive while he was in dialysis; however, he was asymptomatic. 6. Deep venous thrombosis prophylaxis. We will put patient on either SCDs or heparin subcu.
[2018-04-24 05:42] LABS: #Basophils 0.1 thou/uL (0.0-0.2); #Eosinphils 0.3 thou/uL (0.0-0.7); #Lymphocytes 2.1 thou/uL (1.20-3.40); #Monocytes 0.6 thou/uL (0.11-0.59); #Neutrophils 4.2 thou/uL (1.40-6.50); %Eosinophils 4.4 % (0.0-10.0); %Lymphocytes 28.8 % (21.0-51.0); %Neutrophils 57.8 % (42.0-75.0); Hemoglobin 11.4 g/dL (14.0-18.0); Mean Corpuscular HGB CONC 33.3 g/dL (32.0-36.0); Mean Corpuscular Hemoglobin 30.1 pg (27.0-31.0); Mean Corpuscular Volume 90.6 fL (78.0-98.0); Mean Platelet Volume 9.3 fL (7.4-10.4); Platelet Count 219 thou/uL (130-400); RBC Distribution Width 12.6 % (11.5-14.5); Red Blood Cell (RBC) Count 3.78 mill/uL (4.70-6.10); White Blood Cell (WBC) Count 7.3 thou/uL (4.8-10.8)
[2018-04-24 05:52] LABS: Anion Gap 11 mmol/L (10-20); BUN (Urea Nitrogen) 46 mg/dL (8.4-25.7); Calc. Creatinine Clearance 49 mL/min (70-130); Carbon Dioxide 25 mmol/L (22-29); Chloride 102 mmol/L (98-107); Estimated GFR-MDRD 25; Glucose 330 mg/dL (70-105); Potassium 6.1 mmol/L (3.5-5.1); Sodium 132 mmol/L (136-145)
--- NOTE | 2018-04-24 07:25 | PRG ---
DATE OF SERVICE: 04/24/2018 SUBJECTIVE: Mr. Miramontes is a 62-year-old white male with known history of chronic renal failure, type 2 diabetes mellitus, and admitted for left foot discoloration/erythema. He has been evaluated by [facility]. This patient on initial evaluation was noted to be severely hyperkalemic and h as a superimposed acute kidney injury. For that reason, we were consulted and he underwent emergent 2-hour hemodialysis. His potassium is much improved this morning at 6.1. Surgery feels that no inte rvention will be needed at the present time. The patient is somewhat depressed regarding his situation. No complaints of chest pain or shortness of breath. PHYSICAL EXAMINATION: VITAL SIGNS: Blood pressure is 110/57, heart rate 61, respiratory rate 15, temperature 98.1, pulse o x 96%. GENERAL: Noted to be awake, alert, comfortable, not in distress. SKIN: Adequate turgor. HEENT: Pinkish conjunctivae, anicteric sclerae. NECK: No neck mass, no carotid bruits, no JVD. CHEST: No deformities. LUNGS: Clear breath sounds. HEART: Normal sinus rhythm. No murmur, no gallops, no rubs. ABDOMEN: Globular, soft, nontender, no masses. EXTREMITIES: No edema, no deformities except for erythematous and somewhat ischemic left foot. MEDICATIONS: 04/24/2018 - Reviewed. LABORATORY DATA: 04/24/2018 - White count 7.3, hemoglobin 11.4, sodium 132, potassium 6.1, chloride 102, carbon dioxide 25, BUN 46, creatinine 2.67. Glucose 348, calcium 9.0. ASSESSMENT AND PLAN: 1. Acute kidney injury on top of his chronic renal failure -- superimposed, most likely, prerenal az otemia. He was on lisinopril previous to this admission. However, the renal function may have been aggravated with the addition of the antibiotic Bactrim. We will continue current dialytic regimen of 3 hours today. 2. Hyperkalemia, much improved from 8.1 to most recent value of 6.1. We will do a 3-hour hemodialys is. Again, as previously mentioned, the Bactrim may have contributed to the worsening potassium with this patient. 3. Peripheral vascular disease - left foot ischemia. Surgery is following. No surgical interventio n is being contemplated at the present time. Case discussed at length with the patient.
[2018-04-24 10:25] LABS: Hemoglobin A1c 15.4 % (4.0-6.0)
[2018-04-24] MEDS: Pregabalin 50 MG CAP PO SCH ×3 (10:54→20:38)
[2018-04-24] MEDS: Aspirin 81 mg Enteric Coated Tablet PO SCH (10:55)
[2018-04-24] MEDS: Metoprolol Tartrate 50 MG TAB PO SCH ×2 (10:55→20:37)
[2018-04-24] MEDS: Heparin 5,000 UNITS/ML VIAL SC SCH ×3 (10:56→20:37)
[2018-04-24] MEDS: Albumin 25% 25 GM/100 ML BOT IVPB SCH ×3 (10:56→20:36)
[2018-04-24] MEDS ORDERED: Heparin 1,000 UNITS/ML VIAL ONE (11:11)
[2018-04-24] MEDS: HumaLOG 300 UNITS/3 ML VIAL SC SCH ×2 (12:41→17:42)
--- NOTE | 2018-04-24 14:40 | PDOC.PN ---
- Subjective Encounter Start Date: 04/24/18 Encounter Start Time: 11:30 Subjective: pt in dialysis upset about his left foot - Objective Resuscitation Status: Resuscitation Status FULL:Full Resuscitation Vital Signs & Weight: Vital Signs (12 hours) Temp Pulse Resp BP Pulse Ox 04/24/18 12:00 97.7 F 65 17 114/55 L 98 04/24/18 10:45 98.0 F 61 16 120/60 95 04/24/18 08:00 98 04/24/18 03:47 98.1 F 61 15 110/57 L 96 Weight Admit Weight 258 lb 8 oz Weight 258 lb 8 oz I&O: 04/23/18 04/24/18 04/25/18 06:59 06:59 06:59 Intake Total 250 Output Total 700 Balance -450 Result Diagrams: 04/24/18 05:21 04/24/18 05:21 Additional Labs: Accuchecks 04/24/18 04/24/18 04/23/18 11:12 06:36 21:11 POC Glucose 189 H 348 H 254 H Phys Exam - Physical Examination Neck: no nodes, no JVD, supple, full ROM Respiratory: no wheezing, no rales, no rhonchi, wheezing present, clear to auscultation bilateral Cardiovascular: RRR, no significant murmur, no rub, gallop, irregular Gastrointestinal: soft, non-tender, no distention, positive bowel sounds Musculoskeletal: edema present pedal pulse to left foot present left shoulder open wound, with exudate, mild erythema Dx/Plan (1) Ischemia of left lower extremity Code(s): I99.8 - OTHER DISORDER OF CIRCULATORY SYSTEM Status: Acute (2) Hyperkalemia Code(s): E87.5 - HYPERKALEMIA Status: Acute (3) Acute kidney injury superimposed on CKD Code(s): N17.9 - ACUTE KIDNEY FAILURE, UNSPECIFIED; N18.9 - CHRONIC KIDNEY DISEASE, UNSPECIFIED Status: Acute (4) PVD (peripheral vascular disease) Code(s): I73.9 - PERIPHERAL VASCULAR DISEASE, UNSPECIFIED Status: Acute - Plan spoke with Dr galvan, he will see pt in am -: pt has not been checking his blood sugars at home since he does not -: have a glucometer. will start pt on 70/30 and titrate his blood sugars -: pt was on bactrium will hold abx no elevated wb, mild exudate -: which has been cx. wound care to see pt * . Review of Systems - Review of Systems Respiratory: negative: Cough, Dry, Shortness of Breath, Hemoptysis, SOB with Excertion, Pleuritic Pain, Sputum, Wheezing Cardiovascular: negative: chest pain, palpitations, orthopnea, paroxysmal nocturnal dyspnea, edema, light headedness, other Gastrointestinal: negative: Nausea, Vomiting, Abdominal Pain, Diarrhea, Constipation, Melena, Hematochezia, Other - Medications/Allergies Allergies/Adverse Reactions: Allergies Allergy/AdvReac Type Severity Reaction Status Date / Time amlodipine Allergy Verified 04/23/18 22:47 carvedilol Allergy Verified 04/23/18 22:47 duloxetine [From Cymbalta] Allergy Verified 04/23/18 22:47 morphine Allergy Nausea Verified 04/23/18 22:47 orange Allergy Verified 04/23/18 22:47 orange flavor Allergy Verified 04/23/18 22:47 orange juice [[place] Juice] Allergy Verified 04/23/18 22:47 varenicline [From Chantix] Allergy Verified 04/23/18 22:47 Medications: Current Medications Acetaminophen (Tylenol) 650 mg PO Q4H PRN PRN Reason: Headache/Fever/Mild Pain (1-3) Last Admin: 04/24/18 11:08 Dose: 650 mg Albumin Human (Albumin 25%) 25 gm IVPB 0300,0900,1500,2100 [facility] Stop: 04/27/18 03:01 Last Admin: 04/24/18 14:23 Dose: 25 gm Aspirin (Ecotrin) 81 mg PO DAILY [facility] Last Admin: 04/24/18 10:55 Dose: 81 mg Atorvastatin Calcium (Lipitor) 10 mg PO HS [facility] Last Admin: 04/23/18 20:33 Dose: 10 mg Dextrose/Water (Dextrose 50%) 25 gm IVP PRN PRN PRN Reason: HYPOGLYCEMIA PROTOCOL Glucagon (Glucagon) 1 mg IM PRN PRN PRN Reason: HYPOGLYCEMIA PROTOCOL Heparin Sodium (Porcine) (Heparin) 5,000 units SC TID [facility] Last Admin: 04/24/18 14:03 Dose: 5,000 units Dextrose/Water (D5w) 1,000 mls @ 0 mls/hr IV INF PRN PRN Reason: HYPOGLYCEMIA PROTOCOL Insulin Human Isoph/Insulin Regular (Humulin 70/30) 20 units SC BID-[facility] Insulin Human Lispro (Humalog) 0 units SC .MILD SLIDING SCALE PRN; Protocol PRN Reason: MILD SLIDING SCALE Insulin Human Lispro (Humalog) 5 units SC TID-[facility] Last Admin: 04/24/18 12:41 Dose: 5 unit Melatonin (Melatonin) 3 mg PO [facility] Metoprolol Tartrate (Lopressor) 50 mg PO BID [facility] Last Admin: 04/24/18 10:55 Dose: 50 mg Pregabalin (Lyrica) 100 mg PO TID [facility] Last Admin: 04/24/18 14:23 Dose: 100 mg Senna/Docusate Sodium (Senokot S) 2 tab PO BIDPRN PRN PRN Reason: Constipation Sodium Chloride (Flush - Normal Saline) 10 ml IVF Q12HR [facility] Last Admin: 04/24/18 10:55 Dose: 10 ml Sodium Chloride (Flush - Normal Saline) 10 ml IVF PRN PRN PRN Reason: Saline Flush
[2018-04-24] MEDS: Insulin NPH/Reg Insulin Hm 300 UNITS/3 ML VIAL SC SCH (17:42)
[2018-04-24] MEDS: Atorvastatin Calcium 10 MG TAB PO SCH (20:37)
[2018-04-24] MEDS: Melatonin 3 MG TAB PO SCH (20:37)
[2018-04-25] MEDS: Albumin 25% 25 GM/100 ML BOT IVPB SCH ×2 (03:01→08:49)
[2018-04-25] MEDS: Insulin NPH/Reg Insulin Hm 300 UNITS/3 ML VIAL SC SCH ×2 (08:48→18:06)
[2018-04-25] MEDS: HumaLOG 300 UNITS/3 ML VIAL SC SCH ×3 (08:48→18:06)
[2018-04-25] MEDS: Heparin 5,000 UNITS/ML VIAL SC SCH ×3 (08:49→21:26)
[2018-04-25] MEDS: Metoprolol Tartrate 50 MG TAB PO SCH ×2 (09:01→21:24)
[2018-04-25] MEDS: Aspirin 81 mg Enteric Coated Tablet PO SCH (09:01)
[2018-04-25] MEDS: Pregabalin 50 MG CAP PO SCH ×3 (09:02→21:24)
[2018-04-25 11:42] LABS: Anion Gap 12 mmol/L (10-20); BUN (Urea Nitrogen) 28 mg/dL (8.4-25.7); Calc. Creatinine Clearance 64 mL/min (70-130); Calcium 9.2 mg/dL (7.8-10.44); Carbon Dioxide 26 mmol/L (22-29); Chloride 101 mmol/L (98-107); Estimated GFR-MDRD 33; Glucose 172 mg/dL (70-105); Potassium 4.9 mmol/L (3.5-5.1); Sodium 134 mmol/L (136-145)
--- NOTE | 2018-04-25 12:01 | PRG ---
DATE OF SERVICE: 04/25/2018 SERVICE: Renal Medicine. SUBJECTIVE: Mr. Miramontes is a 62-year-old white male, who was admitted for a left leg ischemia. He wa s also noted to be in acute kidney injury with hyperkalemia. He has undergone 2 dialysis sessions. He is feeling better. I feel that the acute kidney injury was secondary to a superimposed hemodynami jessie-mediated renal dysfunction. His lisinopril has been discontinued. In addition, he was also no mireya to be hyperkalemic and his Bactrim, potassium supplementation, lisinopril are all stopped. This morning, he is feeling better. He denies any chest pain or shortness of breath. He has no nausea or vomiting. PHYSICAL EXAMINATION: VITAL SIGNS: Blood pressure 119/58, heart rate 58, respiratory rate 20, temperature 97.9, pulse ox 9 6%. GENERAL EXAM: Noted to be awake, alert, comfortable, not in distress SKIN: Adequate turgor. HEENT: He has pinkish conjunctivae, anicteric sclerae. NECK: No neck mass, no carotid bruits, no JVD. CHEST: No deformities. LUNGS: Decreased breath sounds. HEART: Normal sinus rhythm. No murmur, no gallops, no rubs. ABDOMEN: Globular, soft, nontender, no masses. EXTREMITIES: Trace edema. Medications of 04/25/2018 were reviewed. LABORATORY DATA: Laboratories of 04/25/2018 - base met is currently pending. ASSESSMENT: 1. Acute kidney injury on top of his chronic renal failure - superimposed hemodynamically-mediated r enal dysfunction. Continue supportive care. We will hold dialysis today and see where the creatinin e will equilibrate. Continue salt-poor albumin 25 grams IV q.6 hours. 2. Hyperkalemia, much improved. Recheck base met again today. 3. Peripheral vascular disease - supportive care.
--- NOTE | 2018-04-25 12:56 | CON ---
DATE OF CONSULTATION: 04/25/2018 HISTORY OF PRESENT ILLNESS: This is a 62-year-old gentleman, known to our service from previous michelle nary artery bypass grafting by Dr. Han. He has evidently been having some falls at home and he do es not know the reason, but the day of admission, felt like he had numbness in his left foot and ankl e, prompting admission. He was felt to have an ischemic left foot on admission and a CT angiogram wa s done and I reviewed this. Unfortunately, contrast delivery to the left leg was somewhat slower caden n the right and did not appreciably delineate the circulation below the knee. In conjunction with bi lateral knee replacements, CTA was not real reliable for vascular disease at that level. Iliac and f emoral systems were widely patent, although obviously did have atherosclerosis. 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 He has a histor y of hypertension, dyslipidemia, diabetes mellitus that has been poorly controlled with hemoglobin A1 c of 15. He is taking insulin at home 33 units twice a day as well as medications for his blood pres sure and cholesterol. The patient states that he has been reliably taking his medicines, although ad mits that his diet is not what it could be. Additionally, on presentation, his renal failure had sig nificantly worsened. He has been followed by Dr. Funez as an outpatient with relatively stable renal f unction. The feeling was that some Bactrim that was prescribed for some cellulitis related to an abr asion in his left foot contributed to his renal insufficiency. He has been dialyzed on 2 occasions t o improve his potassium level. PHYSICAL EXAMINATION: GENERAL: Today, he is an alert, cooperative gentleman, appearing slightly older than his stated age. NECK: No carotid bruits. LUNGS: Clear to auscultation. CARDIAC: Regular rate and rhythm with a soft systolic murmur. ABDOMEN: Obese, nontender. EXTREMITIES: He has palpable popliteal pulses bilaterally as well as dorsalis pedis pulses bilateral ly as well as a left posterior tibial. His Doppler signal is biphasic in his left DP, triphasic in h is left PT. He has no peripheral edema. He has evidence of previous great toe amputations in both f eet. The left foot is warm, pink and he does have the abrasion with some mild surrounding cellulitis on the left forefoot. ASSESSMENT AND PLAN: The patient's overall circulation is more than adequate to allow for healing of his wound and certainly cannot be a contributory factor to his falls. At this time, there is no tish dence to perform any angiography given that the patient has excellent pulse in his foot.
--- NOTE | 2018-04-25 13:50 | PDOC.PN ---
- Subjective Encounter Start Date: 04/25/18 Encounter Start Time: 11:30 Subjective: pt up in bed no complains - Objective Resuscitation Status: Resuscitation Status FULL:Full Resuscitation Vital Signs & Weight: Vital Signs (12 hours) Temp Pulse Resp BP BP Pulse Ox 04/25/18 08:45 97.6 F 61 14 142/64 H 98 04/25/18 04:00 97.9 F 58 L 20 119/58 L 96 Weight Admit Weight 258 lb 8 oz Weight 258 lb 11.2 oz I&O: 04/24/18 04/25/18 04/26/18 06:59 06:59 06:59 Intake Total 690 Output Total 1600 Balance -910 Result Diagrams: 04/24/18 05:21 04/25/18 11:15 Additional Labs: Accuchecks 04/25/18 04/25/18 04/24/18 11:17 05:46 20:46 POC Glucose 183 H 136 H 208 H 04/24/18 16:22 POC Glucose 261 H Phys Exam - Physical Examination Neck: no nodes, no JVD, supple, full ROM Respiratory: no wheezing, no rales, no rhonchi, wheezing present, clear to auscultation bilateral Cardiovascular: RRR, no significant murmur, no rub, gallop, irregular Gastrointestinal: soft, non-tender, no distention, positive bowel sounds Dx/Plan (1) Ischemia of left lower extremity Code(s): I99.8 - OTHER DISORDER OF CIRCULATORY SYSTEM Status: Acute (2) Hyperkalemia Code(s): E87.5 - HYPERKALEMIA Status: Acute (3) Acute kidney injury superimposed on CKD Code(s): N17.9 - ACUTE KIDNEY FAILURE, UNSPECIFIED; N18.9 - CHRONIC KIDNEY DISEASE, UNSPECIFIED Status: Acute (4) PVD (peripheral vascular disease) Code(s): I73.9 - PERIPHERAL VASCULAR DISEASE, UNSPECIFIED Status: Acute - Plan will add vit b12 -: pt's creatinine is improving -: pt states he will go to outpatient PT * . Review of Systems - Review of Systems Respiratory: negative: Cough, Dry, Shortness of Breath, Hemoptysis, SOB with Excertion, Pleuritic Pain, Sputum, Wheezing Cardiovascular: negative: chest pain, palpitations, orthopnea, paroxysmal nocturnal dyspnea, edema, light headedness, other Gastrointestinal: negative: Nausea, Vomiting, Abdominal Pain, Diarrhea, Constipation, Melena, Hematochezia, Other Genitourinary: negative: Dysuria, Frequency, Incontinence, Hematuria, Retention , Other - Medications/Allergies Allergies/Adverse Reactions: Allergies Allergy/AdvReac Type Severity Reaction Status Date / Time amlodipine Allergy Verified 04/23/18 22:47 carvedilol Allergy Verified 04/23/18 22:47 duloxetine [From Cymbalta] Allergy Verified 04/23/18 22:47 morphine Allergy Nausea Verified 04/23/18 22:47 orange Allergy Verified 04/23/18 22:47 orange flavor Allergy Verified 04/23/18 22:47 orange juice [[place] Juice] Allergy Verified 04/23/18 22:47 varenicline [From Chantix] Allergy Verified 04/23/18 22:47 Medications: Current Medications Acetaminophen (Tylenol) 650 mg PO Q4H PRN PRN Reason: Headache/Fever/Mild Pain (1-3) Last Admin: 04/24/18 11:08 Dose: 650 mg Aspirin (Ecotrin) 81 mg PO DAILY [facility] Last Admin: 04/25/18 09:01 Dose: 81 mg Atorvastatin Calcium (Lipitor) 10 mg PO [facility] Last Admin: 04/24/18 20:37 Dose: 10 mg Cyanocobalamin (Vitamin B-12) 1,000 mcg PO DAILY [facility] Dextrose/Water (Dextrose 50%) 25 gm IVP PRN PRN PRN Reason: HYPOGLYCEMIA PROTOCOL Glucagon (Glucagon) 1 mg IM PRN PRN PRN Reason: HYPOGLYCEMIA PROTOCOL Heparin Sodium (Porcine) (Heparin) 5,000 units SC TID [facility] Last Admin: 04/25/18 08:49 Dose: 5,000 units Dextrose/Water (D5w) 1,000 mls @ 0 mls/hr IV INF PRN PRN Reason: HYPOGLYCEMIA PROTOCOL Insulin Human Isoph/Insulin Regular (Humulin 70/30) 20 units SC BID-[facility] Last Admin: 04/25/18 08:48 Dose: 20 unit Insulin Human Lispro (Humalog) 0 units SC .MILD SLIDING SCALE PRN; Protocol PRN Reason: MILD SLIDING SCALE Insulin Human Lispro (Humalog) 5 units SC TID-[facility] Last Admin: 04/25/18 12:04 Dose: 5 unit Melatonin (Melatonin) 3 mg PO [facility] Last Admin: 04/24/18 20:37 Dose: 3 mg Metoprolol Tartrate (Lopressor) 50 mg PO BID [facility] Last Admin: 04/25/18 09:01 Dose: 50 mg Pregabalin (Lyrica) 100 mg PO TID [facility] Last Admin: 04/25/18 09:02 Dose: 100 mg Senna/Docusate Sodium (Senokot S) 2 tab PO BIDPRN PRN PRN Reason: Constipation Sodium Chloride (Flush - Normal Saline) 10 ml IVF Q12HR [facility] Last Admin: 04/25/18 09:02 Dose: 10 ml Sodium Chloride (Flush - Normal Saline) 10 ml IVF PRN PRN PRN Reason: Saline Flush
[2018-04-25] MEDS: Atorvastatin Calcium 10 MG TAB PO SCH (21:24)
[2018-04-26] MEDS: Melatonin 3 MG TAB PO SCH ×2 (00:45→20:31)
[2018-04-26 04:45] LABS: Anion Gap 11 mmol/L (10-20); BUN (Urea Nitrogen) 29 mg/dL (8.4-25.7); Calc. Creatinine Clearance 66 mL/min (70-130); Calcium 9.5 mg/dL (7.8-10.44); Carbon Dioxide 29 mmol/L (22-29); Chloride 103 mmol/L (98-107); Estimated GFR-MDRD 34; Glucose 208 mg/dL (70-105); Potassium 4.8 mmol/L (3.5-5.1); Sodium 138 mmol/L (136-145)
[2018-04-26] MEDS: Insulin NPH/Reg Insulin Hm 300 UNITS/3 ML VIAL SC SCH ×2 (08:23→17:47)
[2018-04-26] MEDS: HumaLOG 300 UNITS/3 ML VIAL SC SCH ×3 (08:26→17:52)
[2018-04-26] MEDS: Aspirin 81 mg Enteric Coated Tablet PO SCH (08:26)
[2018-04-26] MEDS: Metoprolol Tartrate 50 MG TAB PO SCH ×2 (08:27→20:30)
[2018-04-26] MEDS: Pregabalin 50 MG CAP PO SCH ×3 (08:27→20:30)
[2018-04-26] MEDS: Cyanocobalamin (Vitamin B-12) 1,000 MCG TAB PO SCH (08:27)
[2018-04-26] MEDS: Heparin 5,000 UNITS/ML VIAL SC SCH ×3 (08:28→20:35)
--- NOTE | 2018-04-26 11:21 | PRG ---
DATE OF SERVICE: 04/26/2018 SERVICE: Renal Medicine. SUBJECTIVE: Mr. Miramontes is a 62-year-old white male, who was admitted for an acute kidney injury on t op of his chronic renal failure and hyperkalemia. He underwent temporary dialysis. I have stopped t he dialysis. He is now spontaneously much improved on his renal function. Hyperkalemia is also reso lved. Patient denies any chest pain or shortness of breath. PHYSICAL EXAMINATION: VITAL SIGNS: Blood pressure is 155/72, heart rate 56, respiratory rate 18, temperature 97.9, pulse o x 96%. GENERAL EXAM: Noted to be awake, alert, comfortable, not in distress. SKIN: Adequate turgor. HEENT: He has pinkish conjunctivae, anicteric sclerae. NECK: No neck mass, no carotid bruits, no JVD. CHEST: No deformities. LUNGS: Clear breath sounds, no wheezing, no crackles. HEART: Normal sinus rhythm. No murmur, no gallops, no rubs. ABDOMEN: Globular, soft, nontender. No masses. EXTREMITIES: No edema, no deformities. Medications of 04/26/2018 were reviewed. LABORATORY DATA: Laboratories of 04/26/2018, sodium 138, potassium 4.8, chloride 103, carbon dioxide 29, BUN 29, creatinine 1.99, glucose 208, calcium 9.5. ASSESSMENT AND PLAN: 1. Acute kidney injury - hemodynamically-mediated renal dysfunction. Much improved. Continue to ho ld off any lisinopril or Bactrim. 2. Hyperkalemia, resolved. 3. Peripheral vascular disease. Supportive care. Consider removing dialysis catheter. Reconsult s urgery in a.m. or if not we can ask nursing staff to pull out the dialysis catheter. Recheck base me t tomorrow.
--- NOTE | 2018-04-26 12:32 | PDOC.PN ---
- Subjective Encounter Start Date: 04/26/18 Encounter Start Time: 10:00 Subjective: pt up in bed feels better today - Objective Resuscitation Status: Resuscitation Status FULL:Full Resuscitation Vital Signs & Weight: Vital Signs (12 hours) Temp Pulse Resp BP Pulse Ox 04/26/18 08:00 98.3 F 60 18 126/60 94 L 04/26/18 04:00 97.9 F 56 L 18 155/72 H 96 Weight Admit Weight 258 lb 8 oz Weight 258 lb 1.6 oz I&O: 04/25/18 04/26/18 04/27/18 06:59 06:59 06:59 Intake Total 690 3540 Output Total 1600 3225 Balance -910 315 Result Diagrams: 04/24/18 05:21 04/26/18 03:42 Additional Labs: Accuchecks 04/26/18 04/25/18 04/25/18 05:12 21:02 16:59 POC Glucose 193 H 240 H 92 Phys Exam - Physical Examination Neck: no nodes, no JVD, supple, full ROM Respiratory: no wheezing, no rales, no rhonchi, wheezing present, clear to auscultation bilateral Cardiovascular: RRR, no significant murmur, no rub, gallop, irregular Gastrointestinal: soft, non-tender, no distention, positive bowel sounds Dx/Plan (1) Ischemia of left lower extremity Code(s): I99.8 - OTHER DISORDER OF CIRCULATORY SYSTEM Status: Acute (2) Hyperkalemia Code(s): E87.5 - HYPERKALEMIA Status: Acute (3) Acute kidney injury superimposed on CKD Code(s): N17.9 - ACUTE KIDNEY FAILURE, UNSPECIFIED; N18.9 - CHRONIC KIDNEY DISEASE, UNSPECIFIED Status: Acute (4) PVD (peripheral vascular disease) Code(s): I73.9 - PERIPHERAL VASCULAR DISEASE, UNSPECIFIED Status: Acute - Plan pt's creatinine is improving will continue to hold dialysis -: spoke with nephro possible discharge in am -: pt's hbg alc is high i did talk to him in detail about his diet and -: insulin compliance. cx of left shoulder staph, will add doxy * . Review of Systems - Review of Systems Respiratory: negative: Cough, Dry, Shortness of Breath, Hemoptysis, SOB with Excertion, Pleuritic Pain, Sputum, Wheezing Cardiovascular: negative: chest pain, palpitations, orthopnea, paroxysmal nocturnal dyspnea, edema, light headedness, other Gastrointestinal: negative: Nausea, Vomiting, Abdominal Pain, Diarrhea, Constipation, Melena, Hematochezia, Other Genitourinary: negative: Dysuria, Frequency, Incontinence, Hematuria, Retention , Other - Medications/Allergies Allergies/Adverse Reactions: Allergies Allergy/AdvReac Type Severity Reaction Status Date / Time amlodipine Allergy Verified 04/23/18 22:47 carvedilol Allergy Verified 04/23/18 22:47 duloxetine [From Cymbalta] Allergy Verified 04/23/18 22:47 morphine Allergy Nausea Verified 04/23/18 22:47 orange Allergy Verified 04/23/18 22:47 orange flavor Allergy Verified 04/23/18 22:47 orange juice [[place] Juice] Allergy Verified 04/23/18 22:47 varenicline [From Chantix] Allergy Verified 04/23/18 22:47 Medications: Current Medications Acetaminophen (Tylenol) 650 mg PO Q4H PRN PRN Reason: Headache/Fever/Mild Pain (1-3) Last Admin: 04/24/18 11:08 Dose: 650 mg Aspirin (Ecotrin) 81 mg PO DAILY [facility] Last Admin: 04/26/18 08:26 Dose: 81 mg Atorvastatin Calcium (Lipitor) 10 mg PO HS [facility] Last Admin: 04/25/18 21:24 Dose: 10 mg Cyanocobalamin (Vitamin B-12) 1,000 mcg PO DAILY [facility] Last Admin: 04/26/18 08:27 Dose: 1,000 mcg Dextrose/Water (Dextrose 50%) 25 gm IVP PRN PRN PRN Reason: HYPOGLYCEMIA PROTOCOL Glucagon (Glucagon) 1 mg IM PRN PRN PRN Reason: HYPOGLYCEMIA PROTOCOL Heparin Sodium (Porcine) (Heparin) 5,000 units SC TID [facility] Last Admin: 04/26/18 12:08 Dose: Not Given Dextrose/Water (D5w) 1,000 mls @ 0 mls/hr IV INF PRN PRN Reason: HYPOGLYCEMIA PROTOCOL Insulin Human Isoph/Insulin Regular (Humulin 70/30) 20 units SC BID-AC [facility] Last Admin: 04/26/18 08:23 Dose: 20 unit Insulin Human Lispro (Humalog) 0 units SC .MILD SLIDING SCALE PRN; Protocol PRN Reason: MILD SLIDING SCALE Insulin Human Lispro (Humalog) 5 units SC TID-WM [facility] Last Admin: 04/26/18 12:08 Dose: 5 unit Melatonin (Melatonin) 3 mg PO HS [facility] Last Admin: 04/26/18 00:45 Dose: Not Given Metoprolol Tartrate (Lopressor) 50 mg PO BID [facility] Last Admin: 04/26/18 08:27 Dose: 50 mg Pregabalin (Lyrica) 100 mg PO TID [facility] Last Admin: 04/26/18 12:06 Dose: 100 mg Senna/Docusate Sodium (Senokot S) 2 tab PO BIDPRN PRN PRN Reason: Constipation Sodium Chloride (Flush - Normal Saline) 10 ml IVF Q12HR [facility] Last Admin: 04/26/18 08:27 Dose: 10 ml Sodium Chloride (Flush - Normal Saline) 10 ml IVF PRN PRN PRN Reason: Saline Flush
[2018-04-26] MEDS: Atorvastatin Calcium 10 MG TAB PO SCH (20:29)
[2018-04-27 04:50] LABS: Anion Gap 11 mmol/L (10-20); BUN (Urea Nitrogen) 28 mg/dL (8.4-25.7); Calc. Creatinine Clearance 70 mL/min (70-130); Calcium 9.6 mg/dL (7.8-10.44); Carbon Dioxide 27 mmol/L (22-29); Chloride 103 mmol/L (98-107); Estimated GFR-MDRD 37; Glucose 188 mg/dL (70-105); Potassium 4.7 mmol/L (3.5-5.1); Sodium 136 mmol/L (136-145)
[2018-04-27] MEDS: Insulin NPH/Reg Insulin Hm 300 UNITS/3 ML VIAL SC SCH (08:43)
[2018-04-27] MEDS: Metoprolol Tartrate 50 MG TAB PO SCH (08:44)
[2018-04-27] MEDS: Aspirin 81 mg Enteric Coated Tablet PO SCH (08:44)
[2018-04-27] MEDS: Pregabalin 50 MG CAP PO SCH ×2 (08:44→16:00)
[2018-04-27] MEDS: Heparin 5,000 UNITS/ML VIAL SC SCH ×2 (08:44→16:00)
[2018-04-27] MEDS: HumaLOG 300 UNITS/3 ML VIAL SC SCH ×2 (08:45→14:34)
[2018-04-27] MEDS: Cyanocobalamin (Vitamin B-12) 1,000 MCG TAB PO SCH (08:45)
[2018-04-27 12:38] VITALS: BP 147/67; TEMP 97.9
--- NOTE | 2018-04-27 13:50 | DIS ---
DATE OF ADMISSION: 04/23/2018 DATE OF DISCHARGE: 04/27/[address] Valdez's patient. DISCHARGE DIAGNOSES: As of the followin. Left lower leg weakness and pain. 2. Hyperkalemia. 3. Acute on chronic kidney disease. 4. Peripheral vascular disease. 5. Diabetes. HOSPITAL COURSE: The patient is a very pleasant 62-year-old male, who initially presented to the [facility] with complaints of weakness of his left lower leg. He stated that his left leg kept on giving out. Patient in the ER had a CTA with runoff, which indicated that he did have some concerns for occ lusion of the left foreleg vasculature. At this time, CV Surgery was consulted, who stated that orlando ent, given his history of significant diabetes which is uncontrolled, either would opt for amputation versus no intervention. Patient initially was admitted to the [facility]; however, rolando moreira refused to see any residents, and at this time, he requested a Sound Physician, especially Dr. Nielsen, to see this patient. I had told him that Dr. Nielsen, was out and was not working this week . The patient also, at this time, was found to have potassium of 8.1; a repeat one was actually 6.4. It was noted that patient was on Bactrim, was on potassium pills, and on lisinopril. At this time, the patient underwent urgent dialysis by Dr. Funez. The patient continued to improve. His creatinine initially was 3.27, and on day of discharge was 1.85. Patient has not required dialysis. His lisin opril and his potassium has been discontinued. Also, he does have a left shoulder wound after skin c ancer removal. I did swab it and it did show Staph aureus, which was MSSA. I did put him on doxycyc line. Also, patient's insulin medication, Lantus, was changed to 70/30. His hemoglobin A1c that was checked was 15. I have educated him significantly on diet and weight loss and also taking his insul in medications. Patient has agreed and is willing to get better controls of his blood sugars and als o taking his medication, eating correctly. Patient states that he does not currently have a glucomet er. His glucometer is on the way. It is noted that the patient's shoulder cultures have been showin g Staph aureus since March. If this continues, he may require Infectious Disease consult. DISCHARGE MEDICATIONS: Are as of the followin. Lyrica 100 mg t.i.d. 2. Lopressor 50 mg b.i.d. 3. Aspirin 81 mg daily. 4. Insulin 70/30, 25 mg b.i.d. 5. Doxycycline 100 mg b.i.d. 6. Vitamin B12 1000 daily. His vitamin B12 level was 548. 7. Atorvastatin I increased it from 10 to 40 mg daily. The patient has been seen and examined. I did discuss with him the plan. He will follow up with Dr. Funez, and also, I have given him a script to check his blood work, especially his kidney function nex t week. He will also follow up with Dr. Valdez. Just an FYI, the patient initially was seen by Dr. Martell; however, he wanted a second opinion a t this time with Dr. Montemayor. I did speak with Dr. Montemayor. Dr. Montemayor stated that, since he did have a good pulse to his left foot which he did on the day of admission, there was no intervention in regard to vascularization or any concerns for amputation. Patient has been educated that controlling his d iabetes will be the rodriguez in retaining all his limbs.
== END 2018-04-27 15:43 | disposition home or self-care (01) | DRG 641 ==
LOC: ERS 12:26 → 2NO 18:35 → T4-B 04-26 13:17
PROVIDERS: ADMIT Internal Medicine; ATTEND Internal Medicine
PROC: 06HM33Z Insertion of Infusion Device into Right Femoral Vein, Percutaneous Approach (ICD-10-PCS; principal; 2018-04-23)
PROC: 5A1D70Z Performance of Urinary Filtration, Intermittent, Less than 6 Hours Per Day (ICD-10-PCS; 2018-04-23)
PROC: 5A1D70Z Performance of Urinary Filtration, Intermittent, Less than 6 Hours Per Day (ICD-10-PCS; 2018-04-24)
DX: E87.5 Hyperkalemia (principal); N17.9 Acute kidney failure, unspecified; I70.92 Chronic total occlusion of artery of the extremities; I13.0 Hypertensive heart and chronic kidney disease with heart failure and stage 1 through stage 4 chronic kidney disease, or unspecified chronic kidney disease; I50.42 Chronic combined systolic (congestive) and diastolic (congestive) heart failure; E11.51 Type 2 diabetes mellitus with diabetic peripheral angiopathy without gangrene; I25.10 Atherosclerotic heart disease of native coronary artery without angina pectoris; E11.22 Type 2 diabetes mellitus with diabetic chronic kidney disease; N18.9 Chronic kidney disease, unspecified; R53.1 Weakness; E66.01 Morbid (severe) obesity due to excess calories; Z68.34 Body mass index [BMI] 34.0-34.9, adult; I70.202 Unspecified atherosclerosis of native arteries of extremities, left leg; E11.21 Type 2 diabetes mellitus with diabetic nephropathy; E11.40 Type 2 diabetes mellitus with diabetic neuropathy, unspecified; B95.61 Methicillin susceptible Staphylococcus aureus infection as the cause of diseases classified elsewhere; S41.002A Unspecified open wound of left shoulder, initial encounter; Z79.4 Long term (current) use of insulin; Z87.891 Personal history of nicotine dependence; Z95.810 Presence of automatic (implantable) cardiac defibrillator; Z95.5 Presence of coronary angioplasty implant and graft
CPT/HCPCS: 36415; 36416; 75635; 80048; 80053; 82607; 83036; 83735; 85025; 86706; 87070; 87077; 87186; 87205; 87340; 90935; 93005; G0257; G8978-GP-CJ; G8979-GP-CI; J1642; J1644; J1815; J7050; P9047

== ENCOUNTER 2018-11-25 07:21 | Day surgery (SDC) | payer MEDICARE ==
[2018-11-24 09:23] VITALS: BMI 31.6
[2018-11-25] MEDS ORDERED: ePHEDrine 50 MG/ML VIAL ONE (15:17)
[2018-11-25] MEDS ORDERED: Lidocaine 1% PF 5 ML VIAL ONE (15:17)
[2018-11-25] MEDS ORDERED: PROPOFOL 200 MG/20 ML VIAL ONE (15:17)
--- NOTE | 2018-11-25 16:31 | OP ---
DATE OF PROCEDURE: 11/25/2018 MEDICATIONS: See Anesthesia record. PROCEDURE PERFORMED: Colonoscopy with snare polypectomy. INDICATION: Colon cancer screening, average risk. This is the patient's first colonoscopy. FINDINGS: After discussion of the risks, benefits, and alternatives of the procedure, informed consent was obtained and witnessed. Pre-endoscopic cardiopulmonary examination was satisfactory. Time-out was performed before sedation was achieved. Sedation was achieved with Anesthesia assistance in the endoscopy unit. was prepared. Digital rectal exam was performed, which was unremarkable. The colonoscope was inserted into the anus and passed forward to the cecum in the usual fashion. The cecal base was identified by the appendiceal orifice as well as the ileocecal valve. The terminal ileum was intubated, and the ileal mucosa appeared normal. The colonoscope was slowly withdrawn in a gradual circumferential manner with careful examination of the entire colonic mucosa. The quality of the prep was adequate. There were multiple sessile colon polyps throughout the colon as follows. In the cecum, there was an approximately 8-mm polyp. This was completely removed with hot snare in piecemeal fashion and retrieved for pathology. In the ascending colon, there were 3 polyps measuring from 2 to 6 mm in size. These were removed with cold snare and hot snare and retrieved for pathology. In the descending colon, there were 5 polyps, the largest of these measured about 1.3 cm. These polyps were all removed with hot snare. The largest polyp was removed in piecemeal fashion, and they were all retrieved for pathology. In the sigmoid colon, there were 2 polyps measuring 4 to 7 mm in size. These were completely removed with hot snare and retrieved for pathology. In all, there were 11 polyps total, and two of them were removed in piecemeal fashion, the rest removed in single piece. Retroflexion in the rectum demonstrated internal hemorrhoids. The colonoscope was completely withdrawn, and the patient allowed to recover. The patient tolerated the procedure well. There were no immediate postprocedure complications. IMPRESSION: 1. 8-mm cecal polyp, completely removed with hot snare in piecemeal fashion and retrieved for pathology. 2. Three subcentimeter ascending colon polyps, all completely removed with hot and cold snare and retrieved for pathology. 3. Five descending colon polyps, the largest measuring about 13 mm in size and removed piecemeal with hot snare, the other 4 polyps, all less than 1 cm and all removed with hot snare and retrieved for pathology. 4. Two sigmoid colon polyps measuring less than 1 cm, completely removed with hot snare and retrieved for pathology. 5. Internal hemorrhoids. RECOMMENDATIONS: 1. Follow up pathology on the colon polyps. 2. Plan to repeat colonoscopy for surveillance in 1 year, given that he had 11 sessile polyps removed and the two of these had to be removed in piecemeal fashion. Job ID: [id number]
== END 2018-11-25 11:13 | disposition home or self-care (01) ==
LOC: SDC 07:21
PROVIDERS: ATTEND Internal Medicine
PROC: 0DBE8ZZ Excision of Large Intestine, Via Natural or Artificial Opening Endoscopic (ICD-10-PCS; principal; 2018-11-25)
DX: Z12.11 Encounter for screening for malignant neoplasm of colon (principal); D12.0 Benign neoplasm of cecum; D12.2 Benign neoplasm of ascending colon; D12.4 Benign neoplasm of descending colon; D12.5 Benign neoplasm of sigmoid colon; K63.5 Polyp of colon; I50.9 Heart failure, unspecified; E11.9 Type 2 diabetes mellitus without complications; Z79.84 Long term (current) use of oral hypoglycemic drugs; Z79.899 Other long term (current) drug therapy; Z87.891 Personal history of nicotine dependence; Z88.1 Allergy status to other antibiotic agents; Z88.5 Allergy status to narcotic agent; Z88.8 Allergy status to other drugs, medicaments and biological substances
CPT/HCPCS: 88305; J2001; J2704; J3490

== ENCOUNTER 2019-12-31 08:56 | Outpatient (CLI) | payer MEDICARE ==
--- NOTE | 2019-12-31 09:52 | CT ---
CT LUMBAR SPINE WITHOUT CONTRAST: HISTORY: Left foot drop syndrome and balance issues. Patient hit head on recliner month ago. COMPARISON: None. FINDINGS: Visualized lung bases, solid organs, aorta and paraspinal muscles do not demonstrate any acute abnorm ality. There is atherosclerosis of a nonaneurysmal aorta. Five lumbar-type vertebrae. Lumbar spine vertebral body heights are maintained. There is no lumbar sp ine fracture. There is partial lumbarization of S1 with a rudimentary S1-S2 disc. There is laminectomy change at L3-L4, L4-L5 and L5-S1. Fusion of the L4-L5 disc space secondary to a disc pros thesis. Vacuum disc phenomenon at T12-L1, L1-L2, L2-L3 and L5-S1. No spondylolysis. Spondylolisthesis: 3 mm of retrolisthesis of L3 upon L5. 3.6 mm of anterolisthesis of L4 for upon L5. 2 mm of retrolisthesis of T11 upon T12. Vacuum joint phenomenon in the left and right sacroiliac joint. Limited evaluation the contents of the central spinal canal and neural foramina due to technique. CT T11-T12 grade 1 retrolisthesis. Mild central canal stenosis. Moderate bilateral neural foraminal n arrowing. T12-L1: Vacuum disc phenomenon. Broad-based disc bulge. Mild canal stenosis. Mild to moderate bilater al neural foraminal narrowing. L1-L2: Vacuum disc phenomenon. Broad-based disc bulge with a left and right paracentral component. Pr esumed mass effect and obscuration bilateral traversing L4 nerve roots. Moderate bilateral neural foraminal narrowing. L2-L3: Vacuum disc phenomenon. Broad-based disc bulge abuts the thecal sac. Mild central canal stenos is. Moderate bilateral neural foraminal narrowing. L3-L4: Severe loss of disc space height. Posterior laminectomy defect. Broad-based disc bulge abuts t he thecal sac. There appears a partially calcified right subarticular inferior disc extrusion. Presumed mass effect and partial obscuration of the traversing right L4 nerve root. There appears to be soft tissue density in the posterior aspect of the central spinal canal likely due to legal ligamentum flavum thickening and scar tissue. Additional hypodensity in the operative site likely rep resents posterior midline paraspinal scar tissue. Mild to moderate central canal stenosis. Moderate to severe bilateral neural foraminal narrowing. L4-L5: Disc prosthesis with fusion of the disc space. No significant posterior disc abnormality. Post erior laminectomy defect. Probable scar tissue at the laminectomy defect site as well as along the posterior aspect of the thecal sac. Mild central canal stenosis. Moderate to severe bilateral neural foraminal narrowing. L5-S1: Vacuum disc phenomenon. Broad-based disc bulge with a small left subarticular component. Mild narrowing of the left subarticular zone. Minimal encroachment upon the right subarticular zone due to disc material. No significant stenosis of the thecal sac. Left hemilaminotomy defect is identified . IMPRESSION: 1. No fracture. 2. Varying degrees of central canal stenosis or neural foraminal narrowing as detailed above. 2. Post surgical changes of these lumbar spine as detailed above. Transcribed Date/Time: 12/31/2019 10:45 AM
== END 2019-12-31 08:57 | disposition home or self-care (01) ==
LOC: SCSCT 08:56
PROVIDERS: ATTEND Orthopaedic Surgery
DX: M54.16 Radiculopathy, lumbar region (principal); M48.061 Spinal stenosis, lumbar region without neurogenic claudication; M48.07 Spinal stenosis, lumbosacral region; Z98.890 Other specified postprocedural states
CPT/HCPCS: 72131

== ENCOUNTER 2020-02-11 06:46 | Outpatient (CLI) | payer MEDICARE, OTHER ==
[2020-02-12 12:19] LABS: SARS-CoV-2 MS2 Positive; SARS-CoV-2 N Gene Negative; SARS-CoV-2 S Gene Negative; SARS-CoV-2 by NAA Not Detected (NotDetected); SARS-CoV-2 orf1ab Negative
== END 2020-02-11 06:47 | disposition home or self-care (01) ==
LOC: LABBT 06:46
PROVIDERS: ATTEND Internal Medicine
DX: Z86.010 Personal history of colon polyps (principal); Z20.828 Contact with and (suspected) exposure to other viral communicable diseases
CPT/HCPCS: 87635; U0003

== ENCOUNTER 2020-02-11 07:10 | Day surgery (SDC) | payer MEDICARE ==
[2020-02-10 11:15] VITALS: BMI 31.2
[2020-02-11 08:41] VITALS: BP 180/91; TEMP 98.8
--- NOTE | 2020-02-11 09:00 | RAD ---
LUMBAR SPINE 3 VIEWS: Date: 02/11/2020 HISTORY: Lumbar radiculopathy. COMPARISON: CT dated 12/31/2019. FINDINGS: Prior diskectomy change with adequate osseous incorporation of the graft at L4-5. There is fixed 4-5 mm L4 over L5 anterolisthesis with osseous fusion along the disc space and posterior elements. There is a mild 2-3 mm L3-4 retrolisthesis and 2 mm L2-3 retrolisthesis without significant abnormal translation with flexion or extension. No acute fracture. L3-L5 laminectomy changes. Moderate vascular calcifications of the aorta. IMPRESSION: No abnormal translation with flexion or extension. POS: [facility]
--- NOTE | 2020-02-15 13:56 | CT ---
Lumbar myelogram CT-guided CT lumbar spine with intrathecal contrast HISTORY: Low back pain. Multiple previous surgeries. FINDINGS: After explaining the procedure and answering all questions, limited CT imaging of the lower back was performed. Sterile technique, buffered local anesthesia, CT guidance, and a posterior approach were used to adva nce the tip of a 22-gauge spinal needle into the thecal sac at the L4 level. Approximately 8 cc of Isovue-200 M were carefully instilled into the thecal sac. Position confirmed w ith CT. Needle was removed. Patient tolerated the procedure well and was eventually dismissed in good condition. CT images including the retroperitoneum show nonenlarged, nonspecific lymph nodes within the retroper itoneum. There is prominent calcification within the arterial structures. T12-L1: Moderate osteophytosis. Central canal and neural foramina are patent. L1-2: Disc space narrowing. Gas disc phenomenon. Mild posterior disc bulge. Osteophytosis of the face ts. Central canal and neural foramina are patent. L2-3: Disc space narrowing. Gas disc phenomenon. Posterior disc bulge and prominent posterior degener ative changes. Severe stenosis of the central canal and each neural foramen, somewhat blocking passage of the injected contrast material. L3-4: Complete loss of disc space height. Minimal degenerative retrolisthesis. Right laminectomy. Pro minent facet hypertrophy. Thecal sac is patent. Moderate to severe stenosis of each neural foramen. L4-5: Complete loss of disc space height. Metallic markers associated with interbody fusion material. Grade 1 spondylolisthesis. Laminectomy defects present. Thecal sac widely patent. Severe stenosis of each neural foramen. L5-S1: Disc space narrowing. Minimal disc bulge. Prominent osseous hypertrophy of the facets. Thecal sac is patent. Severe bilateral foraminal stenoses. IMPRESSION : Postoperative and severe multilevel degenerative changes throughout the lumbar spine. Central canal s tenosis most severe at the L2-3 level. Transcribed Date/Time: 02/15/2020 1:56 PM
== END 2020-02-11 09:45 | disposition home or self-care (01) ==
LOC: RAD 07:10
PROVIDERS: ATTEND Neurological Surgery
DX: M43.16 Spondylolisthesis, lumbar region (principal); M54.16 Radiculopathy, lumbar region; M48.061 Spinal stenosis, lumbar region without neurogenic claudication; I70.0 Atherosclerosis of aorta; E11.22 Type 2 diabetes mellitus with diabetic chronic kidney disease; N18.9 Chronic kidney disease, unspecified; E11.40 Type 2 diabetes mellitus with diabetic neuropathy, unspecified; I50.32 Chronic diastolic (congestive) heart failure; I25.5 Ischemic cardiomyopathy; Z79.01 Long term (current) use of anticoagulants; Z79.4 Long term (current) use of insulin; Z79.82 Long term (current) use of aspirin; Z79.899 Other long term (current) drug therapy; Z88.2 Allergy status to sulfonamides; Z88.5 Allergy status to narcotic agent; Z88.8 Allergy status to other drugs, medicaments and biological substances; Z91.018 Allergy to other foods; Z89.439 Acquired absence of unspecified foot; Z95.0 Presence of cardiac pacemaker; Z95.1 Presence of aortocoronary bypass graft
CPT/HCPCS: 72100; 72131; 72132; 77002

== ENCOUNTER 2020-02-16 07:55 | Day surgery (SDC) | payer MEDICARE ==
[2020-02-11 12:37] VITALS: BMI 30.3
[2020-02-16] MEDS ORDERED: Lidocaine 1% PF 5 ML VIAL ONE (10:27)
[2020-02-16] MEDS ORDERED: PROPOFOL 200 MG/20 ML VIAL ONE (10:27)
--- NOTE | 2020-02-16 15:08 | OP ---
DATE OF PROCEDURE: 02/16/2020 REGIONAL ADMINISTRATIVE ASSISTANT SURGEON: None. PROCEDURE PERFORMED: Colonoscopy with snare polypectomy. INDICATIONS: Personal history of colon polyps, with last colonoscopy 1 year ago; at which time, there were 11 adenomas removed, two of them were larger and removed piecemeal at that time. MEDICATIONS: See Anesthesia record. FINDINGS: After discussion of the risks, benefits, and alternatives of the procedure, informed consent was obtained and witnessed. Pre-endoscopic cardiopulmonary examination was satisfactory. Time-out was performed before sedation was achieved. Sedation was achieved with Anesthesia assistance in the endoscopy unit. Digital rectal exam was performed, which was unremarkable. A Pentax adult colonoscope was inserted into the anus and passed forward to the cecum in the usual fashion. The cecal base was identified by the appendiceal orifice as well as the ileocecal valve. The terminal ileum was not intubated. The colonoscope was slowly withdrawn in a gradual and circumferential manner with careful examination of the entire colonic mucosa. The quality of the prep was fair, but adequate. In the transverse colon, there were three polyps measuring from 3 to 4 mm in diameter these were all completely removed with cold snare and retrieved for pathology. In the descending colon there was a single polyp measuring 3 mm. This was completely removed with cold snare and retrieved for pathology. In the sigmoid colon, there were two sessile polyps measuring 4 mm in diameter. These were both completely removed with cold snare and retrieved for pathology. Retroflexion of the rect, demonstrated internal hemorrhoids. Otherwise, the colonic mucosa appeared normal. The colonoscope was completely withdrawn and the patient allowed to recover. The patient tolerated the procedure well. There were no immediate postprocedure complications. IMPRESSION: 1. Three small transverse colon polyps, completely removed with cold snare and retrieved for pathology. 2. One small descending colon polyp, completely removed with cold snare and retrieved for pathology. 3. Two small sigmoid colon polyps, both completely removed with cold snare and retrieved for pathology. 4. Internal hemorrhoids. RECOMMENDATIONS: 1. Follow up pathology. 2. Repeat colonoscopy for surveillance at a 2-year interval. 3. May resume Xarelto tomorrow. Job ID: [id number]
== END 2020-02-16 11:45 | disposition home or self-care (01) ==
LOC: SDC 07:55
PROVIDERS: ATTEND Internal Medicine
PROC: 0DBM8ZX Excision of Descending Colon, Via Natural or Artificial Opening Endoscopic, Diagnostic (ICD-10-PCS; principal; 2020-02-16)
PROC: 0DBL8ZX Excision of Transverse Colon, Via Natural or Artificial Opening Endoscopic, Diagnostic (ICD-10-PCS; 2020-02-16)
PROC: 0DBN8ZX Excision of Sigmoid Colon, Via Natural or Artificial Opening Endoscopic, Diagnostic (ICD-10-PCS; 2020-02-16)
DX: Z09 Encounter for follow-up examination after completed treatment for conditions other than malignant neoplasm (principal); D12.3 Benign neoplasm of transverse colon; D12.4 Benign neoplasm of descending colon; D12.5 Benign neoplasm of sigmoid colon; K64.8 Other hemorrhoids; Z86.010 Personal history of colon polyps; Z79.01 Long term (current) use of anticoagulants; Z79.4 Long term (current) use of insulin; Z79.82 Long term (current) use of aspirin; Z79.899 Other long term (current) drug therapy; Z88.1 Allergy status to other antibiotic agents; Z88.2 Allergy status to sulfonamides; Z88.5 Allergy status to narcotic agent; Z88.8 Allergy status to other drugs, medicaments and biological substances; Z91.018 Allergy to other foods; Z95.5 Presence of coronary angioplasty implant and graft
CPT/HCPCS: 36416; 88305; J2704

== ENCOUNTER 2020-04-17 06:57 | Outpatient (CLI) | payer MEDICARE, OTHER ==
[2020-04-17 10:14] LABS: Hemoglobin 16.4 g/dL (14.0-18.0); Mean Corpuscular HGB CONC 33.1 G/DL (32.0-36.0); Mean Corpuscular Hemoglobin 30.4 PG (27.0-33.0); Mean Corpuscular Volume 91.7 fl (80.0-100.0); Mean Platelet Volume 11.1 fl (7.4-10.4); Platelet Count 272 10x3/uL (130-400); RBC Distribution Width 13.2 % (11.5-14.5); White Blood Cell (WBC) Count 9.3 10x3/uL (4.5-11.0)
[2020-04-17 10:35] LABS: Anion Gap 15 mmol/L (10-20); BUN (Urea Nitrogen) 18 mg/dL (8.4-25.7); Calc. Creatinine Clearance 0 mL/min (70-130); Calcium 8.8 mg/dL (7.8-10.44); Carbon Dioxide 25 mmol/L (23-31); Chloride 101 mmol/L (98-107); Estimated GFR-MDRD 48; Glucose 322 mg/dL (80-115); Sodium 136 mmol/L (136-145)
[2020-04-17 10:42] LABS: Prothrombin Time 10.8 sec (9.5-12.1)
[2020-04-18 10:23] LABS: SARS-CoV-2 MS2 Positive; SARS-CoV-2 N Gene Negative; SARS-CoV-2 S Gene Negative; SARS-CoV-2 by NAA Not Detected (NotDetected); SARS-CoV-2 orf1ab Negative
== END 2020-04-17 06:58 | disposition home or self-care (01) ==
LOC: LABBT 06:57
PROVIDERS: ATTEND Neurological Surgery
DX: Z01.812 Encounter for preprocedural laboratory examination (principal); M48.061 Spinal stenosis, lumbar region without neurogenic claudication; Z20.828 Contact with and (suspected) exposure to other viral communicable diseases
CPT/HCPCS: 80048; 85027; 85610; 85730; U0003; 87635

== ENCOUNTER 2020-04-20 10:19 | Day surgery (SDC) | payer MEDICARE ==
--- NOTE | 2020-04-20 06:45 | HP ---
REASON FOR HISTORY AND PHYSICAL: Surgery on 04/20/2020. Case number is [id number]. CHIEF COMPLAINT: Left foot drop. HISTORY OF PRESENT ILLNESS: Mr. Miramontes is a 64-year-old male with a history of 11 back surgeries. His most recent surgery was in [place], [place], where he had a fusion at L4-L5 and L5-S1 decompression. He reports that his footdrop was rather abrupt and is concerned due to some loss of muscle mass in the left leg. He has some balance instability due to his left leg weakness, requiring him to use a cane for stability. He denies bladder or bowel dysfunction. REVIEW OF SYSTEMS: CONSTITUTIONAL: Denies fever or chills. ENT: Denies change in vision or hearing. CARDIAC: Denies chest pain, shortness of breath, or diaphoresis. PULMONARY: Denies shortness of breath, cough, or hemoptysis. GI: Denies fecal incontinence, abdominal pain, nausea, vomiting, diarrhea, change in stool formation and consistency. : Denies urinary incontinence, trouble with urination, frequency of urination, bloody urine. SKIN: Denies skin rash, bruising, bleeding, skin masses. MUSCULOSKELETAL: As per history of present illness. NEUROLOGIC: As per history of present illness. PSYCHOLOGIC: Denies anxiety, depression, behavior changes. MEDICAL HISTORY: Diabetes, heart disease, open heart surgery, Dr. Garcia, heart attack in August 2016, chronic systolic heart failure, ischemic cardiomyopathy. SURGICAL HISTORY: Seven back surgeries, wrist, six knee, left elbow, left great toe, pacemaker, right great toe, CABG. HOSPITALIZATIONS: Heart operation in 12/24/2017. Acute chronic kidney disease. Hyperkalemia. Peripheral vascular disease. As above surgeries. FAMILY HISTORY: Father of lung cancer. Mother . ALLERGIES: AMLODIPINE, CYMBALTA, MORPHINE, ORANGE, ORANGE FLAVOR, ORANGE JUICE, BACTRIM, CHANTIX. HOME MEDICATIONS: 1. Semaglutide 5 mg. 2. Aspirin 81 mg. 3. Xarelto 2.5 mg. 4. Coreg 3.125 mg. 5. Bystolic 5 mg. 6. Levemir 80 units. 7. Amaryl 4 mg. 8. Lasix 40 mg. 9. Lyrica 100 mg. 10. Paroxetine 40 mg. PHYSICAL EXAMINATION: VITAL SIGNS: Weight 237, height 73, BMI 31.26. HEENT: Pupils are equal. Extraocular movements are intact. NECK: Soft, supple. No masses are noted. Range of motion is intact and nonpainful. NEUROLOGIC: Awake, alert, and oriented x3. Memory, attention, fund of knowledge are normal. Cranial nerves are grossly intact. Gait and station: Steppage gait on the left. Motor exam: Weak AT on both sides. Left 2+ to 3-. Barely moving against gravity. Great toes are significantly absent on both sides. Sensory exam: Numb from knees down. IMAGING STUDIES: Myelogram of the L-spine, severe stenosis above segments of prior surgery. X-ray L-spine, flexion-extension is stable. ASSESSMENT: 1. Spinal stenosis, lumbar region without neurogenic claudication. 2. Footdrop, left foot. 3. Radiculopathy of the lumbosacral region. PLAN: 1. Laminectomy, redo L1 through L3. 2. Anesthesia clearance. 3. Postop labs; CBC, PT, PTT, INR. 4. Stop Xarelto 1 week before, may continue 2 weeks after surgery. INFORMED CONSENT: We discussed the indications, risks, benefits, alternatives, and expected results from surgery. The risks discussed included, but were not limited to, bleeding, infection, CSF leak, nerve damage, weakness, incontinence, cauda equina injury, arachnoiditis, paralysis, ventilator dependency, wheelchair dependency, loss of vision, cardiopulmonary complications of anesthesia, or . Long-term complications discussed included, but were not limited to spinal instability and future surgery. He understands the risks and is willing to proceed. Job ID: [id number] [facility]
[~2020-04-20 10:19] MED LIST changes: +Glycopyrrolate 0.2 MG/ML 5 ML SYRINGE ONE; -Heparin 10,000 UNITS/ 10 ML VIAL ONE; +PHENYLEPHRINE-NS 100 MCG/ML 10 ML SYRINGE ONE; +PROPOFOL 200 MG/20 ML VIAL ONE; +Rocuronium Bromide 10 MG/ML (10ML VIAL) ONE; +ePHEDrine 50 MG/ML VIAL ONE
[2020-04-20] MEDS ORDERED: Phenylephrine 10 MG/ML VIAL ONE (11:04)
[2020-04-20] MEDS ORDERED: Albumin 5% 500 ML ONE (11:15)
[2020-04-20] MEDS ORDERED: SUGAMMADEX SODIUM 200 MG/2 ML VIAL ONE (11:15)
[2020-04-20] MEDS ORDERED: Fentanyl 100 MCG/2 ML VIAL ONE ×3 (11:51→17:26)
[2020-04-20] MEDS ORDERED: EPINEPHrine 1 MG/ML AMP ONE (11:55)
[2020-04-20] MEDS ORDERED: Thrombin 5000 UNITS/5 ML VIAL ONE (11:55)
[2020-04-20] MEDS ORDERED: Bupivacaine PF 0.5% 30 ML VIAL ONE (11:55)
[2020-04-20] MEDS ORDERED: Ketamine 50 MG/ML (10ML VIAL) ONE (11:59)
[2020-04-20] MEDS ORDERED: Insulin Regular 300 UNITS/3 ML VIAL ONE (12:00)
[2020-04-20] MEDS ORDERED: Midazolam HCl 2 mg/2 ml Vial ONE ×2 (12:12→12:20)
[2020-04-20] MEDS ORDERED: diphenhydrAMINE 25 MG CAP PO PRN (15:53)
[2020-04-20] MEDS ORDERED: Scopolamine 1.5 mg/72 hour Patch TD PRN (15:53)
[2020-04-20] MEDS ORDERED: Tamsulosin HCl 0.4 MG CAP PO PRN (15:53)
[2020-04-20] MEDS ORDERED: Promethazine 25 MG TAB PO PRN (15:53)
[2020-04-20] MEDS ORDERED: tiZANidine HCl 4 MG TAB PO PRN (15:53)
[2020-04-20] MEDS ORDERED: Promethazine HCl 25 MG/ML VIAL IM PRN (15:53)
--- NOTE | 2020-04-20 15:55 | OP ---
DATE OF PROCEDURE: 04/20/2020 LOBBY CONCIERGE: Nicholas Begum PA-C PREOPERATIVE INDICATION: Treat pain and prevent neurological deterioration. PREOPERATIVE DIAGNOSIS: Recurrent multilevel upper lumbar stenosis with neurogenic claudication and weakness. POSTOPERATIVE DIAGNOSIS: Recurrent multilevel upper lumbar stenosis with neurogenic claudication and weakness. OPERATIVE PROCEDURE: 1. Reopening lumbar incision. 2. Scar dissection. 3. Decompressive laminectomy, medial facetectomy, and foraminotomy at T12-L1, L1-L2, and L2-L3. PREOPERATIVE MEDICATIONS: Ancef 2 g IV. DRAIN NUMBER: Zero. DRAIN TYPE: None. DESCRIPTION OF PROCEDURE: The patient was brought to the operating room. General endotracheal anesthesia was induced. The patient was carefully positioned prone on the operating table with his chest and hips supported by gel-filled chest rolls. A lateral fluoro radiograph was used to plan our incision. The lumbar skin was sterilely prepped and draped. We opened the midline incision above his previous incisions and extending into the top half of his previous incision. We controlled bleeding with bipolar cautery. We used monopolar cautery to dissect through subcutaneous tissues to the thoracodorsal fascia. We incised the fascia in the midline, reflected the paraspinal muscles off the spinous process and lamina of T12, L1, L2, and L3. A self-retaining retractor was placed and a lateral fluoro radiograph confirmed the levels upon which we were operating. We then used an Adson rongeur to remove the spinous process of L2 and L1, inferior portion of T12, and the tiny remnant of L3. Using a Kerrison rongeur, we fashioned a laminectomy down the midline. We had to perform medial facetectomies at T12-L1, L1-L2, and L2-L3 due to overgrowth of the facet joints behind the dura. This decompressed the lateral recesses. We identified the traversing and exiting nerve roots. I performed foraminotomies over the nerve roots, so that they could traverse the interspace and leave the foramen without impingement. We irrigated with bacitracin irrigation. The dura was well decompressed at the completion of our laminectomies. We waxed the bone edges. We infused local anesthetic in the paraspinal muscles. We closed the wound in anatomical layers and we applied a sterile dressing. This was a clean case, no contamination. Job ID: [id number]
[2020-04-20] MEDS ORDERED: Fentanyl 100 MCG/2 ML VIAL SLOW IVP PRN ×2 (15:59→16:01)
[2020-04-20] MEDS ORDERED: HYDROcodone/Acetaminophen 7.5/325 mg Tablet PO PRN (16:17)
[2020-04-20] MEDS ORDERED: Dextrose 50% Abboject 50 ML SYRINGE IVP PRN (17:00)
[2020-04-20] MEDS ORDERED: Dextrose 5% in Water 1,000 ML IV PRN (17:00)
[2020-04-20 19:22] VITALS: BMI 34.9
[2020-04-20] MEDS: Sodium Chloride 0.9% 1,000 ML IV SCH (19:25)
[2020-04-20] MEDS: CEFAZOLIN 2 GM in Premix Bag 1 BAG IVPB SCH (21:06)
[2020-04-20] MEDS: Pregabalin 50 MG CAP PO SCH (21:06)
[2020-04-20] MEDS: Carvedilol 3.125 MG TAB PO SCH (21:06)
[2020-04-21] MEDS: CEFAZOLIN 2 GM in Premix Bag 1 BAG IVPB SCH (04:25)
[2020-04-21 04:48] LABS: Glucose POC Confirmation 533 mg/dl (80-115)
[2020-04-21] MEDS ORDERED: HumaLOG 300 UNITS/3 ML VIAL SC PRN (05:15)
[2020-04-21] MEDS: Sodium Chloride 0.9% 1,000 ML IV SCH (05:15)
[2020-04-21] MEDS ORDERED: Glimepiride 4 MG TAB PO SCH (09:00)
[2020-04-21] MEDS ORDERED: Insulin Glargine 80 UNITS in Pre-Filled Syringe 1 EACH SC SCH (09:00)
[2020-04-21] MEDS ORDERED: PARoxetine 20 MG TAB PO SCH (09:00)
[2020-04-21] MEDS ORDERED: Nebivolol HCl 5 MG TAB PO SCH (09:00)
[2020-04-21] MEDS ORDERED: Non-Formulary Item 1 EACH (Insulin Detemir [Levemir Flextouch] 100 UNIT/ML Insuln.Pen) SQ SCH (09:00)
[2020-04-21] MEDS ORDERED: Furosemide 40 MG TAB PO SCH (09:00)
[2020-04-21] MEDS: Pregabalin 50 MG CAP PO SCH (09:08)
[2020-04-21] MEDS: Carvedilol 3.125 MG TAB PO SCH (09:10)
[2020-04-21 13:08] VITALS: BP 128/78; TEMP 97.5
[2020-04-27] MEDS ORDERED: Semaglutide [Ozempic] 1 MG/0.75 ML Pen.Injctr SC SCH (09:00)
== END 2020-04-21 12:47 | disposition home or self-care (01) ==
LOC: SDC 10:19 → T4-B 15:53 → SDC 04-21 12:47
PROVIDERS: ATTEND Neurological Surgery
PROC: 01N80ZZ Release Thoracic Nerve, Open Approach (ICD-10-PCS; principal; 2020-04-20)
PROC: 01NB0ZZ Release Lumbar Nerve, Open Approach (ICD-10-PCS; 2020-04-20)
DX: M48.05 Spinal stenosis, thoracolumbar region (principal); M48.062 Spinal stenosis, lumbar region with neurogenic claudication; M54.17 Radiculopathy, lumbosacral region; M21.372 Foot drop, left foot; E11.9 Type 2 diabetes mellitus without complications; I25.2 Old myocardial infarction; I50.22 Chronic systolic (congestive) heart failure; Z79.01 Long term (current) use of anticoagulants; Z79.4 Long term (current) use of insulin; Z79.82 Long term (current) use of aspirin; Z79.899 Other long term (current) drug therapy; Z88.1 Allergy status to other antibiotic agents; Z88.2 Allergy status to sulfonamides; Z88.5 Allergy status to narcotic agent; Z88.8 Allergy status to other drugs, medicaments and biological substances; Z91.018 Allergy to other foods; Z95.0 Presence of cardiac pacemaker; Z95.1 Presence of aortocoronary bypass graft; Z98.1 Arthrodesis status
CPT/HCPCS: 63046; 63048 ×2; 76000; 82947; 82962; 86850; 86900; 86901; 97116; 97139; P9045; 36415; 36416; J0171; J0690; J1815; J2250; J2370; J2704; J3010; J3370; J3490; S0020

== ENCOUNTER 2020-12-03 19:30 | Outpatient (CLI) | payer MEDICARE | END 2020-12-03 19:31 | disposition home or self-care (01) | LOC: SLEEPLAB 19:30 | PROVIDERS: ATTEND Family Medicine | DX: G47.33 Obstructive sleep apnea (adult) (pediatric) (principal); G47.10 Hypersomnia, unspecified; R53.83 Other fatigue; F41.9 Anxiety disorder, unspecified; G47.00 Insomnia, unspecified; F32.9 Major depressive disorder, single episode, unspecified; E11.9 Type 2 diabetes mellitus without complications; R06.83 Snoring | CPT/HCPCS: 95810 ==

== ENCOUNTER 2021-11-08 19:30 | Inpatient (IN) | payer MEDICARE ==
[2021-11-08 22:10] VITALS: BMI 33.7
[2021-11-08] MEDS ORDERED: Dextrose 50% Abboject 50 ML SYRINGE SLOW IVP PRN (23:01)
[2021-11-08] MEDS ORDERED: Dextrose 5% in Water 1,000 ML IV PRN (23:01)
[2021-11-08] MEDS ORDERED: HumaLOG 300 UNITS/3 ML VIAL SC PRN (23:08)
[2021-11-08] MEDS ORDERED: Insulin Glargine 30 UNITS/0.3 ML VIAL SC SCH (23:45)
[2021-11-08] MEDS: Lactated Ringer's 1,000 ML IV SCH (23:59)
[2021-11-09] MEDS ORDERED: Nicotine 14 MG PATCH TD PRN (02:51)
[2021-11-09 05:26] LABS: Anion Gap 11 mmol/L (10-20); BUN (Urea Nitrogen) 58 mg/dL (8.4-25.7); Calc. Creatinine Clearance 59 mL/min (70-130); Calcium 8.4 mg/dL (7.8-10.44); Carbon Dioxide 24 mmol/L (23-31); Cardiac Risk 6.2 (Less than 4.5); Chloride 106 mmol/L (98-107); Cholesterol 162 mg/dl (< 200 Desired); Glucose 181 mg/dL (80-115); HDL Cholesterol 26 mg/dL (>60 Neg Risk); LDL Cholesterol, Calculated 84 mg/dL; Potassium 3.9 mmol/L (3.5-5.1); Sodium 137 mmol/L (136-145); Triglycerides 258 mg/dL (Less than 150)
[2021-11-09] MEDS: HumaLOG 300 UNITS/3 ML VIAL SC PRN (06:28)
[2021-11-09] MEDS: Aspirin 81 mg Enteric Coated Tablet PO SCH (08:35)
[2021-11-09] MEDS: Pregabalin 50 MG CAP PO SCH ×3 (08:35→20:33)
[2021-11-09] MEDS: Enoxaparin Sodium 40 MG/0.4 ML SYRINGE SC SCH (08:38)
[2021-11-09] MEDS ORDERED: Insulin Glargine 30 UNITS/0.3 ML VIAL SC SCH (09:00)
[2021-11-09 09:33] LABS: Creatinine, Urine 58.49 mg/dL (63-166)
[2021-11-09] MEDS: Insulin Glargine 30 UNITS/0.3 ML VIAL SC SCH ×2 (10:42→22:19)
[2021-11-09] MEDS: Lactated Ringer's 1,000 ML IV SCH (10:46)
[2021-11-09] MEDS: Acetaminophen 325 MG TAB PO PRN (20:34)
[2021-11-09] MEDS ORDERED: Atorvastatin Calcium 40 MG TAB PO SCH (21:00)
[2021-11-10 06:05] LABS: Anion Gap 11 mmol/L (10-20); BUN (Urea Nitrogen) 43 mg/dL (8.4-25.7); Calc. Creatinine Clearance 76 mL/min (70-130); Calcium 8.7 mg/dL (7.8-10.44); Carbon Dioxide 25 mmol/L (23-31); Chloride 105 mmol/L (98-107); Glucose 144 mg/dL (80-115); Potassium 4.2 mmol/L (3.5-5.1); Sodium 137 mmol/L (136-145)
[2021-11-10] MEDS ORDERED: Lisinopril 10 MG TAB PO SCH (09:00)
[2021-11-10] MEDS ORDERED: Insulin Glargine 30 UNITS/0.3 ML VIAL SC SCH (09:00)
[2021-11-10] MEDS: Aspirin 81 mg Enteric Coated Tablet PO SCH (10:13)
[2021-11-10] MEDS: Pregabalin 50 MG CAP PO SCH ×2 (10:14→16:14)
[2021-11-10] MEDS: Acetaminophen 325 MG TAB PO PRN (10:29)
[2021-11-10] MEDS: Enoxaparin Sodium 40 MG/0.4 ML SYRINGE SC SCH (10:29)
[2021-11-10 11:17] LABS: Hemoglobin A1c 9.9 % (4.0-6.0)
[2021-11-10 12:20] VITALS: TEMP 97.1
[2021-11-10] MEDS: HumaLOG 300 UNITS/3 ML VIAL SC PRN (12:22)
[2021-11-10 14:30] VITALS: BP 140/78
== END 2021-11-10 16:04 | disposition home or self-care (01) | DRG 69 ==
LOC: NEURO 19:30 → OBSVTOIN 11-09 12:52
PROVIDERS: ADMIT Family Medicine; ATTEND Student in an Organized Health Care Education/Training Program
DX: G45.9 Transient cerebral ischemic attack, unspecified (principal); N17.9 Acute kidney failure, unspecified; E11.9 Type 2 diabetes mellitus without complications; I10 Essential (primary) hypertension; F41.9 Anxiety disorder, unspecified; F17.210 Nicotine dependence, cigarettes, uncomplicated; I25.10 Atherosclerotic heart disease of native coronary artery without angina pectoris; Z96.653 Presence of artificial knee joint, bilateral; I08.3 Combined rheumatic disorders of mitral, aortic and tricuspid valves; Z95.810 Presence of automatic (implantable) cardiac defibrillator; Z88.3 Allergy status to other anti-infective agents; Z88.5 Allergy status to narcotic agent; Z88.2 Allergy status to sulfonamides; Z88.8 Allergy status to other drugs, medicaments and biological substances; Z91.018 Allergy to other foods; Z79.899 Other long term (current) drug therapy; Z79.82 Long term (current) use of aspirin; Z79.4 Long term (current) use of insulin; Z98.890 Other specified postprocedural states; Z95.1 Presence of aortocoronary bypass graft; Z95.5 Presence of coronary angioplasty implant and graft
CPT/HCPCS: 36415; 36416; 70450; 72125; 72131; 80048; 80061; 82570; 83036; 84443; 84540; 93306; 93880; G0378; J1650; J1815; J7120

== ENCOUNTER 2021-12-31 18:05 | Observation (INO) | payer MEDICARE ==
[2022-01-01 00:18] LABS: SARS-CoV-2 NAA Rapid Test Not Detected (NotDetected)
[2022-01-01 00:32] VITALS: BMI 32.2
[2022-01-01] MEDS ORDERED: Ondansetron PF 4 MG/2 ML Vial IVP PRN (00:45)
[2022-01-01] MEDS ORDERED: Ondansetron ODT 4 MG TAB SL PRN (00:45)
[2022-01-01] MEDS ORDERED: Acetaminophen 325 MG TAB PO PRN ×2 (00:45→21:01)
[2022-01-01] MEDS ORDERED: Lisinopril 10 MG TAB PO SCH (05:30)
[2022-01-01] MEDS: Aspirin 81 mg Enteric Coated Tablet PO SCH (10:58)
[2022-01-01] MEDS: FLUoxetine HCl 20 MG CAP PO SCH (10:58)
[2022-01-01] MEDS: Furosemide 40 MG TAB PO SCH (10:58)
[2022-01-01] MEDS: Lisinopril 10 MG TAB PO SCH (10:59)
[2022-01-01] MEDS: Pregabalin 50 MG CAP PO SCH ×2 (10:59→21:48)
[2022-01-01] MEDS: Insulin Glargine 30 UNITS/0.3 ML VIAL SC SCH (10:59)
[2022-01-01] MEDS ORDERED: ceFAZolin 2 GM/Dextrose 50 ML 2 GM in Premix Bag 1 BAG IVPB SCH (14:00)
[2022-01-01] MEDS ORDERED: CEFAZOLIN 2 GM VIAL ONE (15:00)
[2022-01-01] MEDS ORDERED: Sodium Chloride 0.9% 100 ML ONE (15:00)
[2022-01-01] MEDS: CEFAZOLIN 2 GM in Sodium Chloride 0.9% 100 ML IVPB SCH ×2 (15:10→21:50)
[2022-01-01] MEDS ORDERED: Propofol 1,000 MG/100 ML VIAL IV ONE (16:11)
[2022-01-01] MEDS ORDERED: fentaNYL Citrate/PF 100 MCG/2 ML SYRINGE ONE (17:14)
[2022-01-01] MEDS ORDERED: Atorvastatin Calcium 40 MG TAB PO SCH (21:00)
[2022-01-01] MEDS ORDERED: traMADol HCl 50 MG TAB PO PRN (21:01)
[2022-01-01] MEDS ORDERED: Dextrose 50% Abboject 50 ML SYRINGE IVP PRN (21:15)
[2022-01-01] MEDS ORDERED: HumaLOG 300 UNITS/3 ML VIAL SC PRN ×2 (21:15)
[2022-01-01] MEDS ORDERED: Dextrose 5% in Water 1,000 ML IV PRN (21:15)
[2022-01-02 05:13] VITALS: TEMP 97.8
[2022-01-02] MEDS: CEFAZOLIN 2 GM in Sodium Chloride 0.9% 100 ML IVPB SCH (05:52)
[2022-01-02] MEDS: Aspirin 81 mg Enteric Coated Tablet PO SCH (09:08)
[2022-01-02] MEDS: Insulin Glargine 30 UNITS/0.3 ML VIAL SC SCH (09:08)
[2022-01-02] MEDS: Pregabalin 50 MG CAP PO SCH (09:09)
[2022-01-02] MEDS: Furosemide 40 MG TAB PO SCH (09:09)
[2022-01-02] MEDS: Lisinopril 10 MG TAB PO SCH (09:10)
[2022-01-02] MEDS: FLUoxetine HCl 20 MG CAP PO SCH (09:11)
[2022-01-02 09:12] VITALS: BP 184/85
[2022-01-02] MEDS ORDERED: hydrALAZINE 20 MG/ML VIAL SLOW IVP PRN (11:12)
== END 2022-01-02 11:44 | disposition home or self-care (01) ==
LOC: ERS 18:05 → SURG A 21:36
PROVIDERS: ADMIT Orthopaedic Surgery; ATTEND Orthopaedic Surgery
PROC: 0LBW0ZZ Excision of Left Foot Tendon, Open Approach (ICD-10-PCS; principal; 2022-01-01)
DX: M24.477 Recurrent dislocation, right toe(s) (principal); S91.114A Laceration without foreign body of right lesser toe(s) without damage to nail, initial encounter; E11.40 Type 2 diabetes mellitus with diabetic neuropathy, unspecified; I25.10 Atherosclerotic heart disease of native coronary artery without angina pectoris; I25.2 Old myocardial infarction; E78.00 Pure hypercholesterolemia, unspecified; I10 Essential (primary) hypertension; F17.210 Nicotine dependence, cigarettes, uncomplicated; Z79.4 Long term (current) use of insulin; Z79.82 Long term (current) use of aspirin; Z79.899 Other long term (current) drug therapy; Z88.1 Allergy status to other antibiotic agents; Z88.2 Allergy status to sulfonamides; Z88.5 Allergy status to narcotic agent; Z88.8 Allergy status to other drugs, medicaments and biological substances; Z91.018 Allergy to other foods; Z95.1 Presence of aortocoronary bypass graft; Z89.411 Acquired absence of right great toe; Z95.5 Presence of coronary angioplasty implant and graft; Z20.822 Contact with and (suspected) exposure to COVID-19; W22.09XA Striking against other stationary object, initial encounter; Y92.029 Unspecified place in mobile home as the place of occurrence of the external cause
CPT/HCPCS: 11043; 76000; 96365; 96366; 99284; G0378 ×3; U0002; J0690; J1815; J2704; J3490

== ENCOUNTER 2023-01-20 06:30 | Day surgery (SDC) | payer MEDICARE ==
[2022-12-20 12:55] VITALS: BMI 31.5
[2023-01-20] MEDS ORDERED: Vasopressin 20 UNITS/ML VIAL ONE (07:32)
[2023-01-20] MEDS ORDERED: Ketamine 50 MG/ML (10ML VIAL) ONE (07:32)
[2023-01-20] MEDS ORDERED: fentaNYL 50 mcg/mL 1 mL Vial ONE (07:32)
[2023-01-20] MEDS ORDERED: Lidocaine 1% PF 5 ML VIAL ONE (07:49)
[2023-01-20] MEDS ORDERED: PROPOFOL 200 MG/20 ML VIAL ONE (07:49)
== END 2023-01-20 09:30 | disposition home or self-care (01) ==
LOC: SDC 06:30
PROVIDERS: ATTEND Internal Medicine
PROC: 0DBK8ZZ Excision of Ascending Colon, Via Natural or Artificial Opening Endoscopic (ICD-10-PCS; principal; 2023-01-20)
PROC: 0DBL8ZZ Excision of Transverse Colon, Via Natural or Artificial Opening Endoscopic (ICD-10-PCS; 2023-01-20)
PROC: 0DBN8ZZ Excision of Sigmoid Colon, Via Natural or Artificial Opening Endoscopic (ICD-10-PCS; 2023-01-20)
PROC: 0DBP8ZZ Excision of Rectum, Via Natural or Artificial Opening Endoscopic (ICD-10-PCS; 2023-01-20)
PROC: 0DBH8ZZ Excision of Cecum, Via Natural or Artificial Opening Endoscopic (ICD-10-PCS; 2023-01-20)
DX: D12.7 Benign neoplasm of rectosigmoid junction (principal); D12.0 Benign neoplasm of cecum; D12.2 Benign neoplasm of ascending colon; D12.5 Benign neoplasm of sigmoid colon; D12.3 Benign neoplasm of transverse colon; K64.8 Other hemorrhoids; F41.9 Anxiety disorder, unspecified; I25.10 Atherosclerotic heart disease of native coronary artery without angina pectoris; I50.32 Chronic diastolic (congestive) heart failure; N18.32 Chronic kidney disease, stage 3b; E11.22 Type 2 diabetes mellitus with diabetic chronic kidney disease; Z86.73 Personal history of transient ischemic attack (TIA), and cerebral infarction without residual deficits; I13.0 Hypertensive heart and chronic kidney disease with heart failure and stage 1 through stage 4 chronic kidney disease, or unspecified chronic kidney disease; E78.00 Pure hypercholesterolemia, unspecified; I25.5 Ischemic cardiomyopathy; F33.41 Major depressive disorder, recurrent, in partial remission; M96.1 Postlaminectomy syndrome, not elsewhere classified; M46.1 Sacroiliitis, not elsewhere classified; I47.1 Supraventricular tachycardia; E55.9 Vitamin D deficiency, unspecified; F17.210 Nicotine dependence, cigarettes, uncomplicated; Z79.899 Other long term (current) drug therapy; Z88.8 Allergy status to other drugs, medicaments and biological substances; Z88.2 Allergy status to sulfonamides; Z88.5 Allergy status to narcotic agent; Z86.010 Personal history of colon polyps
CPT/HCPCS: 45385; 82962; J3010; 36416; 88305; J2704

== ENCOUNTER 2023-02-18 13:50 | Outpatient (CLI) | payer MEDICARE ==
[2023-02-18 15:08] LABS: #Basophils 0.1 10x3/uL (0.0-0.2); #Eosinphils 0.2 10x3/uL (0.0-0.5); #Monocytes 0.5 10x3/uL (0.0-1.1); #Neutrophils 6.8 10x3/uL (1.5-8.4); %Basophils 0.9 % (0.0-2.0); %Eosinophils 2.6 % (0.0-6.0); %Lymphocytes 16.8 % (18.0-47.0); %Monocytes 5.8 % (0.0-10.0); %Neutrophils 73.7 % (40.0-75.0); Hematocrit 37.3 % (38.8-50.0); Hemoglobin 11.9 g/dL (13.5-17.5); Mean Corpuscular HGB CONC 31.9 g/dL (32.0-36.0); Mean Corpuscular Hemoglobin 29.9 pg (27.0-33.0); Mean Corpuscular Volume 93.7 fl (81.2-95.1); Mean Platelet Volume 12.2 fl (7.4-10.4); Platelet Count 246 10x3/uL (150-450); RBC Distribution Width 14.1 % (11.5-14.5); Red Blood Cell (RBC) Count 3.98 10x6/uL (4.32-5.72); White Blood Cell (WBC) Count 9.2 10x3/uL (3.5-10.5)
[2023-02-18 15:31] LABS: ALT (SGPT) 28 U/L (8-55); AST (SGOT) 18 U/L (5-34); Albumin 4.1 g/dL (3.4-4.8); Alkaline Phosphatase 183 U/L (40-110); Anion Gap 14 mmol/L (10-20); BUN (Urea Nitrogen) 57 mg/dL (8.4-25.7); Bilirubin, Direct 0.3 mg/dL (0.1-0.3); Bilirubin, Total 0.7 mg/dL (0.2-1.2); Calc. Creatinine Clearance 0 mL/min (70-130); Calcium 9.2 mg/dL (7.8-10.44); Carbon Dioxide 24 mmol/L (23-31); Chloride 103 mmol/L (98-107); Estimated GFR 35; Globulin 2.8 g/dL (2.4-3.5); Glucose 222 mg/dL (80-115); Protein, Total 6.9 g/dL (5.8-8.1); Sodium 135 mmol/L (136-145)
[2023-02-18 15:36] LABS: PTT 31.7 sec (22.0-33.0); Prothrombin Time 10.5 sec (9.5-12.1)
== END 2023-02-18 13:51 | disposition home or self-care (01) ==
LOC: LABBT 13:50
PROVIDERS: ATTEND Internal Medicine Cardiovascular Disease
DX: Z01.818 Encounter for other preprocedural examination (principal)
CPT/HCPCS: 80053; 80076; 85025; 85610; 85730; 93005; 93010

== ENCOUNTER → 2023-02-20 | Day surgery (SDC) | payer MEDICARE ==
[2023-02-18 14:22] VITALS: BMI 30.9
[~2023-02-20] MED LIST changes: +Adenosine 6 MG/2 ML VIAL ONE; +Atropine Sulfate 1 mg/10 ml Syringe ONE; -Glycopyrrolate 0.2 MG/ML 5 ML SYRINGE ONE; +Heparin 10,000 UNITS/ 10 ML VIAL ONE; +Lidocaine 1% (PF) 30 ML VIAL ONE; +Nitroglycerin 50 MG/250 ML BOT 250 ML ONE; -PHENYLEPHRINE-NS 100 MCG/ML 10 ML SYRINGE ONE; -PROPOFOL 200 MG/20 ML VIAL ONE; -Rocuronium Bromide 10 MG/ML (10ML VIAL) ONE; +Verapamil 5 MG/2 ML VIAL ONE; -ePHEDrine 50 MG/ML VIAL ONE
[2023-02-20 08:25] LABS: Cardiac Risk 2.5 (Less than 4.5)
[2023-02-20 12:14] LABS: ALT (SGPT) 24 U/L (8-55); AST (SGOT) 14 U/L (5-34); Alkaline Phosphatase 181 U/L (40-110); Anion Gap 11 mmol/L (10-20); BUN (Urea Nitrogen) 57 mg/dL (8.4-25.7); Bilirubin, Total 0.8 mg/dL (0.2-1.2); Calc. Creatinine Clearance 53 mL/min (70-130); Calcium 9.5 mg/dL (7.8-10.44); Carbon Dioxide 26 mmol/L (23-31); Chloride 103 mmol/L (98-107); Estimated GFR 34; Globulin 3.4 g/dL (2.4-3.5); Glucose 262 mg/dL (80-115); Potassium 4.9 mmol/L (3.5-5.1); Protein, Total 7.4 g/dL (5.8-8.1); Sodium 135 mmol/L (136-145)
== END ==
LOC: SDC 05:53
PROVIDERS: ATTEND Internal Medicine Cardiovascular Disease
DX: R06.09 Other forms of dyspnea (principal); I25.118 Atherosclerotic heart disease of native coronary artery with other forms of angina pectoris; I73.9 Peripheral vascular disease, unspecified; R55 Syncope and collapse; I13.0 Hypertensive heart and chronic kidney disease with heart failure and stage 1 through stage 4 chronic kidney disease, or unspecified chronic kidney disease; I50.22 Chronic systolic (congestive) heart failure; N18.30 Chronic kidney disease, stage 3 unspecified; E55.9 Vitamin D deficiency, unspecified; E11.22 Type 2 diabetes mellitus with diabetic chronic kidney disease; E11.42 Type 2 diabetes mellitus with diabetic polyneuropathy; M86.172 Other acute osteomyelitis, left ankle and foot; I48.92 Unspecified atrial flutter; I25.2 Old myocardial infarction; J44.9 Chronic obstructive pulmonary disease, unspecified; Z53.9 Procedure and treatment not carried out, unspecified reason; Z98.890 Other specified postprocedural states; F17.210 Nicotine dependence, cigarettes, uncomplicated; Z88.5 Allergy status to narcotic agent; Z88.8 Allergy status to other drugs, medicaments and biological substances; Z79.899 Other long term (current) drug therapy
CPT/HCPCS: 80053; 80061; 82962; J0461; 36416; J0153; J1644; J2001

== ENCOUNTER 2023-04-09 19:39 | Emergency (ER) | payer MEDICARE ==
[2023-04-09 20:23] LABS: #Basophils 0.1 thou/uL (0.0-0.2); #Eosinphils 0.3 thou/uL (0.0-0.7); #Monocytes 0.6 thou/uL (0.11-0.59); #Neutrophils 6.4 thou/uL (1.40-6.50); %Basophils 1.1 % (0.0-1.0); %Eosinophils 3.7 % (0.0-10.0); %Lymphocytes 16.9 % (21.0-51.0); %Monocytes 6.4 % (0.0-10.0); %Neutrophils 71.6 % (42.0-75.0); Hematocrit 38.5 % (42.0-52.0); Hemoglobin 12.8 g/dL (14.0-18.0); Mean Corpuscular HGB CONC 33.2 g/dL (32.0-36.0); Mean Corpuscular Hemoglobin 30.8 pg (27.0-31.0); Mean Corpuscular Volume 92.8 fl (78.0-98.0); Mean Platelet Volume 11.7 fL (7.4-10.4); Platelet Count 233 10x3/uL (130-400); RBC Distribution Width 12.9 % (11.5-14.5); Red Blood Cell (RBC) Count 4.15 mill/uL (4.70-6.10)
[2023-04-09 20:57] LABS: ALT (SGPT) 24 U/L (8-55); AST (SGOT) 18 U/L (5-34); Albumin 4.8 g/dL (3.4-4.8); Alkaline Phosphatase 163 U/L (40-110); Anion Gap 14 mmol/L (10-20); BUN (Urea Nitrogen) 91 mg/dL (8.4-25.7); Bilirubin, Total 0.6 mg/dL (0.2-1.2); Calc. Creatinine Clearance 0 mL/min (70-130); Calcium 9.6 mg/dL (7.8-10.44); Carbon Dioxide 19 mmol/L (23-31); Chloride 105 mmol/L (98-107); Estimated GFR 24; Globulin 3.2 g/dL (2.4-3.5); Glucose 92 mg/dL (80-115); Magnesium 2.7 mg/dL (1.6-2.6); Potassium 4.7 mmol/L (3.5-5.1); Sodium 133 mmol/L (136-145)
[2023-04-09 20:58] LABS: Troponin I 0.012 ng/mL (< 0.028)
== END 2023-04-09 21:27 | disposition home or self-care (01) ==
LOC: ERS 19:39
DX: E11.22 Type 2 diabetes mellitus with diabetic chronic kidney disease (principal); N18.9 Chronic kidney disease, unspecified; I12.9 Hypertensive chronic kidney disease with stage 1 through stage 4 chronic kidney disease, or unspecified chronic kidney disease; I25.10 Atherosclerotic heart disease of native coronary artery without angina pectoris; E78.00 Pure hypercholesterolemia, unspecified; F17.210 Nicotine dependence, cigarettes, uncomplicated; Z79.899 Other long term (current) drug therapy; Z79.82 Long term (current) use of aspirin; Z79.01 Long term (current) use of anticoagulants; Z79.4 Long term (current) use of insulin
CPT/HCPCS: 71046; 80053; 83735; 84484; 85025; 93005; 96360